=== PATIENT | female | born 1995 | race Caucasian/White ===

== ENCOUNTER → 2016-10-02 | Day surgery (SDC) | payer OTHER ==
[2016-09-21 09:50] VITALS: Ht 160 cm; Wt 72.7 kg
--- NOTE | 2016-09-30 11:31 | HISTORY & PHYSICAL EXAMINATION ---
DATE OF ADMISSION: 10/02/2016 HISTORY OF PRESENT ILLNESS: The patient is a 21-year-old white female 0 who has been experiencing severe dysmenorrhea and dyspareunia for over 6 months. She has used control pills with no relief. We have discussed using progestin only contraceptives including Depo-Provera and progestin containing IUD, but she declines these agents. She would like to proceed with diagnostic laparoscopy for definitive diagnosis. Ultrasound was done on 09/04/2016 which showed her uterus to be 34 mL with an endometrial lining of 2.1 mm. Ovaries appeared normal without evidence of any endometriomas. PAST MEDICAL HISTORY: ALLERGIES: THE PATIENT REPORTS AN ALLERGY TO AZITHROMYCIN. MEDICATIONS: She takes Zoloft 25 mg once daily and amitriptyline 75 mg nightly. She is also presently using Macey control pills 1 tablet daily. PAST SURGICAL HISTORY: None. ILLNESSES: The patient does suffer with anxiety. She has scoliosis. Also, experiences low back pain. She has been treated for acid reflux. History of a concussion. She also underwent CT scan which showed a possible umbilical hernia, although this was not confirmed by further testing. FAMILY HISTORY: Her father has hypertension. She also has a family history of depression and diabetes. PHYSICAL EXAMINATION: VITAL SIGNS: Height 5 foot 2-1/2 inches, weight 165 pounds, blood pressure 124/66. HEAD, EYES, EARS, NOSE, AND THROAT: Grossly within normal limits. NECK: Supple without masses. CHEST: Her lungs are clear without wheezing. HEART: Regular rate and rhythm. ABDOMEN: Soft and nontender with no obvious hernias or masses. PELVIC: External genitalia within normal limits. Vagina pink and stimulated. Cervix pink and closed with no lesions visible. Uterus within normal limits size, nontender. Adnexa were mildly tender bilaterally, no masses were palpable. Rectovaginal exam was negative. EXTREMITIES: No cyanosis, clubbing or edema. IMPRESSION: A 21-year-old with persistent dysmenorrhea and dyspareunia. PLAN: The patient is for diagnostic laparoscopy with possible operative laparoscopy to include placement of a scope into the abdomen with or without lysis of adhesions, laser ablation, fulguration or excision of endometrial implants. We have discussed the risks of bleeding, infection, injury to bowel, bladder or other internal organs with possible need for further treatment or surgery. All questions were answered. The patient wishes to proceed with the surgery as above. Note that we also discussed alternatives including no surgery and use of progestational agents. MTDD
[~2016-10-02] VITALS: Ht 160 cm; Wt 72.7 kg
[~2016-10-02] MED LIST: AMIT75TA2 PO; AMOX500C3 PO; AMT/50 PO; ATROPINE SULFATE 0.1 MG/ML 5ML SYR IV PRN; BCPILLS PO; BUPIVACAINE 0.5 % 5 MG/1 ML MPF 30ML VIAL ONE; DEXAMETHASONE SOD INJ 4 MG/ML VIAL ONE; EpHEDrine SULFATE INJ 50 MG/ML AMP IV PRN; FENTANYL CITRATE INJ 50 MCG/1 ML 2 ML VIAL ONE; FESO4TAB PO; GLYCOPYRROLATE INJ 0.2 MG/ML VIAL ONE; HYDROmorphone INJ 0.5 MG/0.5 ML SYR IV PRN; IBUPROFEN 600 MG TAB PO PRN; KETOROLAC TROMETHAMINE 30 MG/ML VIAL ONE; LACTATED RINGER'S 1000ML 1,000 ML IV SCH; LIDOCAINE HCL 2% 2 ML VIAL (20MG/ML) ONE; METHYLENE BLUE 0.5% 10 ML VIAL ONE; MIDAZOLAM HCL 1 MG/ML 2ML VIAL ONE; NEOSTIGMINE METHYLSULFATE 5 MG/5 ML SYR ONE; ONDANSETRON INJ 2 MG/ML 2 ML VIAL IV PRN; ONDANSETRON INJ 2 MG/ML 2 ML VIAL ONE; OXYC-57 PO; OXYCODONE/ACETAMINOPHEN 5-325 TAB PO PRN; PHENYLEPHRINE 100MCG/ML 5ML SYR IV PRN; PHENYLEPHRINE HCL INJ 10 MG/ML VIAL ONE; PROPOFOL IV EMULSION 10 MG/ML 20 ML VIAL IV ONE; ROCURONIUM BROMIDE 10 MG/ML 5 ML VIAL ONE; SERT25TA PO; SODIUM CHLORIDE 0.9% 1000ML 1,000 ML IV SCH
--- NOTE | 2016-10-02 09:41 | History & Physical Bridge - SC ---
H&P Re-Evaluation Bridge Note: I have examined the patient, reviewed the History & Physical and in the interval since the performance of the History & Physical I have noted the following changes of clinical significance: No changes noted
--- NOTE | 2016-10-02 11:15 | [facility] Post Operative Brief Note ---
Immediate Operative Summary Operative Date Oct 02, 2016. Pre-Operative Diagnosis Persistent dysmenorrhea and dyspareunia Post-Operative Diagnosis Same as preop, no evidence of endometriosis Procedure(s) Performed Diagnostic Laparoscopy Surgeon Dr. Lozano Fingerprint Expert Surgeon(s) None Estimated Blood Loss 25 mL Findings See dictated note. Specimens None Complication(s) None Disposition Recovery Room / PACU
--- NOTE | 2016-10-02 11:32 | Discharge Instructions-SurgCtr ---
Discharge Instructions Date of Service Oct 02, 2016. Visit Reason for Visit: Abdominal Pain, Dysmenorrhea Discharge Discharge Diagnosis / Problem: S/P Diagnostic laparoscopy Discharge Goals Goal(s): Diagnostic testing Activity Recommendations Activity Limitations: per Instructions/Follow-up section Anesthesia . Post Anesthesia Instructions: If you have had General Anesthesia or IV Sedation: * Do not drive today. * Resume driving when surgeon permits. * Do not make important decisions or sign legal documents today. * Call surgeon for: 1. Temperature elevations greater than 101 degrees F. 2. Uncontrollable pain. 3. Excessive bleeding. 4. Persistent nausea and vomiting. 5. Medication intolerance (nausea, vomiting or rash). * For nausea and vomiting use only clear liquids such as: tea, soda, bouillon until nausea subsides, then gradually increase diet as tolerated. * If you have any concerns or questions, call your surgeon's office. If physician is unavailable and it is an emergency, call 911 or go to the nearest emergency room. . Instructions / Follow-Up Instructions / Follow-Up ACTIVITY RECOMMENDATIONS: * Rest the first 2-3 days. You should be back to your normal activity levels by day 3. * No heavy lifting for 2 weeks. * No intercourse, tampons or douching for 2 weeks. * You may shower the next day. You can take off bandaids. Leave steri-strips in place for one week. If they fall off that is OK. * Do not drive anytime that you are taking narcotic pain medicines. RETURN TO SCHOOL/WORK: * May return to school or work after 3 days. DIET: Nausea may occur in the immediate post-operative period. If so, take clear liquids such as tea, bouillon, apple juice until all nausea has subsided, then resume usual diet. MEDICATIONS: Resume previous medications unless instructed otherwise by your surgeon. Take percocet one to two tablets every 4-6 hours if pain is severe. Otherwise you can use the following pain medication. Ibuprofen 200mg 2-3 tablets every 4-6 hours as needed -- OR -- Aleve 2 tablets every 8-12 hours as needed for post-operative discomfort Medications are over the counter. Tylenol may be used if above medications are contraindicated or not preferred. Medication should be taken with food or milk. Do not take on an empty stomach. SPECIAL CARE INSTRUCTIONS: * Check temperature twice daily for one week. report any elevation over 101 degrees. * You may experience some vagina spotting and/or bleeding. This is normal for 1 -2 weeks and should not be heavier than a normal period. If it is unusual in amount, call your physician. * Post-operative discomfort may consist of a sore throat, a "bloated" feeling and pain in the shoulders. these are normal symptoms, which usually only last for 2-3 days. * Remove band-aids tomorrow and shower. FOLLOW UP VISIT: Call your doctor's office for a post-operative 2-3 week visit if not already scheduled. [phone] an appointment with Dr Lozano Diet Recommendations Home Diet: resume previous diet Procedures Procedures Performed: Diagnostic Laparoscopy Pending Studies Studies pending at discharge: no Medical Emergencies . Who to Call and When: Medical Emergencies: If at any time you feel your situation is an emergency, please call 911 immediately. . Non-Emergent Contact Non-Emergency issues call your: Inseam Leveler Call Non-Emergent contact if: temperature is above 100.5, your pain is not controlled, your pain is worsening, wound has increased drainage, wound has increased redness, wound has increased pain . . "Provider Documentation" section prepared by Allison Lozano. [place] Drug Monitoring Program Search Results: patient reviewed within database, no issues identified
[2016-10-02] MEDS: HYDROmorphone INJ 0.5 MG/0.5 ML SYR IV PRN ×2 (11:47→11:59)
[2016-10-02 12:26] VITALS: TEMP 36.9
[2016-10-02 13:15] VITALS: BP 100/65; PULSE 103; O2SAT 96
--- NOTE | 2016-10-02 13:19 | Anesthesia Progress Nt - [facility] ---
Anesthesia Post Op Note Date & Time Oct 02, 2016 at 13:18 Vital Signs Vital Signs Past 12 Hours Date Time Temp Pulse Resp B/P Pulse Ox O2 Delivery O2 Flow Rate FiO2 10/02/16 13:15 103 18 100/65 96 Room Air 10/02/16 12:26 36.9 107 18 108/72 95 Room Air 10/02/16 12:15 118/65 10/02/16 12:12 84 20 10/02/16 12:12 82 20 93 10/02/16 12:10 126/71 10/02/16 12:10 37.2 78 20 118/65 98 Room Air 10/02/16 12:07 92 19 10/02/16 12:07 92 19 97 10/02/16 12:05 123/70 10/02/16 12:02 94 15 97 10/02/16 12:02 95 15 10/02/16 12:00 115/70 10/02/16 11:57 96 15 99 10/02/16 11:57 91 15 10/02/16 11:55 124/82 10/02/16 11:52 96 15 100 10/02/16 11:52 93 15 10/02/16 11:50 124/61 10/02/16 11:47 87 15 10/02/16 11:47 87 15 100 10/02/16 11:45 123/74 10/02/16 11:42 82 16 10/02/16 11:42 80 16 99 10/02/16 11:40 124/72 10/02/16 11:37 89 10/02/16 11:37 89 100 10/02/16 11:35 123/69 10/02/16 11:32 95 19 10/02/16 11:32 95 19 100 10/02/16 11:30 131/67 10/02/16 11:27 110 10/02/16 11:27 110 115/67 84 10/02/16 11:27 36.9 115 12 115/67 98 Mask 6 10/02/16 08:31 37.0 90 16 108/72 99 Room Air Notes Mental Status: alert / awake / arousable, participated in evaluation Pt Amnestic to Procedure: Yes Nausea / Vomiting: adequately controlled Pain: adequately controlled Airway Patency, RR, SpO2: stable & adequate BP & HR: stable & adequate Hydration State: stable & adequate Anesthetic Complications: no major complications apparent
--- NOTE | 2016-10-02 17:38 | OPERATIVE REPORT ---
DATE OF OPERATION: 10/02/2016 PREOPERATIVE DIAGNOSES: Persistent dysmenorrhea and dyspareunia. POSTOPERATIVE DIAGNOSES: Same. No evidence of endometriosis. PROCEDURE PERFORMED: Diagnostic laparoscopy. SURGEON: Allison Lozano MD ANESTHESIA: General. TRAFFIC ENGINEERING TECHNICIAN: Curtis Guillermo MD DESCRIPTION OF PROCEDURE: The patient was taken to the operating room where general anesthesia was administered. After an adequate level was obtained, she was placed in dorsal lithotomy position. Abdomen, vulva, vagina, and cervix were prepped with Betadine solution. The patient was draped. Leigh catheter was inserted into the patient's bladder. This was left in place during the procedure to keep the bladder drained. Hulka clamp was inserted into her uterus. An incision was then made at the lower edge of the umbilicus using the scalpel. Two attempts were made to insert the Veress needle, but no flow of gas was obtained either time. At that point, I made the decision to open the abdominal wall directly. A scalpel was used to make a small incision in the fascia. The peritoneum was then opened directly using scalpel. At this point, it was possible to directly insert the laparoscopic sheath with trocar. Trocar was removed and hysteroscope inserted. Gas was kept from escaping by tightly sealing the skin around the sheath with Allis clamps. Prior to this, 2 sutures of 0 Vicryl were placed on the fascia. A second incision was made suprapubically using the scalpel. A 5 mm trocar and sheath were inserted under direct visualization. The patient's peritoneum was exceedingly stretchy so finally the operative scissors were used to poke through the peritoneum to create an opening for the sheath. Thick probe was then used. Pelvic organs were visualized. Photographs were taken. The uterus, tubes, and ovaries appeared normal without evidence of endometriosis or adhesions. The anterior and posterior cul-de-sac also appeared clear of any endometriosis. The appendix was easily visualized and again there was no evidence of adhesion or endometriosis. The insertions of the round ligaments had no evidence of any potential hernia. It should be noted that the patient had previously had an MRI in [place] which showed possible umbilical hernia. Ultrasound at our facility did not confirm this. On palpation of the umbilical area at the time of making the umbilical incision, there was a small defect noted at the central umbilicus. This seemed to be less than 1 cm in size. I did not address that or correct that in the course of the procedure, however. There was a small amount of bleeding created when making the incisions. The pelvis was irrigated with 60 mL of saline and then this was aspirated to better see the cul-de-sac. At this point, the procedure was ended. Gas was allowed to escape from the abdomen and the incisions were closed. The umbilical incision was closed with 2 sutures of 0 Vicryl in the fascia and 2 sutures of 3-0 Vicryl to close the skin. A suture of 3-0 Vicryl was used to close the skin at the suprapubic incision. Estimated blood loss for the procedure was no more than 25 mL. The patient tolerated the procedure well and was taken to the recovery room in good condition. An additional note is that on bimanual exam prior to the procedure, there was stool noted in the rectum. I attest to the content of the Intraoperative Record and any orders documented therein. Any exceptions are noted below. CARLOS
== END | disposition home or self-care (01) ==
LOC: X.SURG 08:24
PROVIDERS: ATTEND Obstetrics & Gynecology
DX: N94.6 Dysmenorrhea, unspecified (principal); N94.10 Unspecified dyspareunia; F41.9 Anxiety disorder, unspecified; Z83.3 Family history of diabetes mellitus

== ENCOUNTER 2016-11-12 23:44 | Emergency (ER) | payer OTHER ==
[~2016-11-12] VITALS: Ht 161.3 cm; Wt 75.8 kg
[~2016-11-12 23:44] MED LIST changes: -AMIT75TA2 PO; -ATROPINE SULFATE 0.1 MG/ML 5ML SYR IV PRN; -BUPIVACAINE 0.5 % 5 MG/1 ML MPF 30ML VIAL ONE; -DEXAMETHASONE SOD INJ 4 MG/ML VIAL ONE; -EpHEDrine SULFATE INJ 50 MG/ML AMP IV PRN; -FENTANYL CITRATE INJ 50 MCG/1 ML 2 ML VIAL ONE; -FESO4TAB PO; -GLYCOPYRROLATE INJ 0.2 MG/ML VIAL ONE; -HYDROmorphone INJ 0.5 MG/0.5 ML SYR IV PRN; -IBUPROFEN 600 MG TAB PO PRN; -KETOROLAC TROMETHAMINE 30 MG/ML VIAL ONE; -LACTATED RINGER'S 1000ML 1,000 ML IV SCH; -LIDOCAINE HCL 2% 2 ML VIAL (20MG/ML) ONE; -METHYLENE BLUE 0.5% 10 ML VIAL ONE; -MIDAZOLAM HCL 1 MG/ML 2ML VIAL ONE; -NEOSTIGMINE METHYLSULFATE 5 MG/5 ML SYR ONE; -ONDANSETRON INJ 2 MG/ML 2 ML VIAL IV PRN; -ONDANSETRON INJ 2 MG/ML 2 ML VIAL ONE; -OXYCODONE/ACETAMINOPHEN 5-325 TAB PO PRN; -PHENYLEPHRINE 100MCG/ML 5ML SYR IV PRN; -PHENYLEPHRINE HCL INJ 10 MG/ML VIAL ONE; -PROPOFOL IV EMULSION 10 MG/ML 20 ML VIAL IV ONE; -ROCURONIUM BROMIDE 10 MG/ML 5 ML VIAL ONE; -SODIUM CHLORIDE 0.9% 1000ML 1,000 ML IV SCH
[2016-11-12 23:47] VITALS: Ht 161.3 cm; Wt 75.8 kg
[2016-11-13] MEDS ORDERED: IBUPROFEN 600 MG TAB PO STA (00:02)
[2016-11-13] MEDS ORDERED: HYDROCODONE/ACETAMOPHEN 5/325MG TAB PO ONE (00:15)
[2016-11-13 00:22] LABS: URINE APPEARANCE CLEAR (CLEAR); URINE BILIRUBIN NEG (NEG); URINE COLOR YELLOW; URINE NITRITE NEG (NEG); URINE PH 7.5 (4.5-7.5); URINE SPECIFIC GRAVITY 1.013 (1.000-1.030); UROBILINOGEN NEG (NEG); ZZUR CULT IF INDIC CLEAN CATCH NO
[2016-11-13 00:23] LABS: MANUAL MICROSCOPIC REQUIRED? NO; REVIEW REQ? NO
[2016-11-13] MEDS ORDERED: AMIT75TA2 PO (00:35)
[2016-11-13] MEDS ORDERED: FESO4TAB PO (00:37)
[2016-11-13 00:53] VITALS: BP 101/54; PULSE 120; TEMP 37.5; O2SAT 97
[2016-11-13] MEDS ORDERED: NORCO 5/325MG HOME PACK PO ONE (01:00)
--- NOTE | 2016-11-13 03:40 | EMERGENCY ROOM VISIT NOTE ---
History First contact with patient: 23:52 Chief Complaint: ILLNESS Stated Complaint: LWR RT BACK PAIN STARTED IN STOMACH History of Present Illness The patient is a 21 year old female who presents to the Emergency Room with complaints of low back pain for the past few hours. The patient was seen at a local urgent care clinic earlier today and diagnosed with strep pharyngitis on rapid strep. She was started on amoxicillin and has taken one dose of the medication. She has not taken anything for her fever. She is not having chest pain, chest tightness, shortness of breath, or abdominal pain. She considers himself usually healthy without other issues. She rates her discomfort a 5/10. Review of Systems More than 10 systems were reviewed and otherwise negative with the exception of history of present illness. Past Medical/Surgical History Medical Problems: (1) Asthma Family History No pertinent family history Social History Smoking Status: Never Smoker Alcohol Use: none Drug Use: none Marital Status: single Housing Status: lives with family Occupation Status: student Current/Historical Medications Scheduled Amitriptyline Hcl (Elavil), 75 MG PO HS Amoxicillin (Amoxil), 500 MG PO BID Control Pills ( Control Pills), 1 TAB PO QAM Fesoterodine Fumarate (Toviaz), 4 MG PO DAILY Sertraline (Zoloft), 25 MG PO QAM Allergies Coded Allergies: Egg (Verified Allergy, Mild, NAUSEA, 11/13/16) Azithromycin (Verified Adverse Reaction, Mild, diarrhea, 11/13/16) Diphenhydramine (Verified Adverse Reaction, Mild, HYPERACTIVE, 11/13/16) Physical Exam Vital Signs Date Time Temp Pulse Resp B/P Pulse Ox O2 Delivery O2 Flow Rate FiO2 11/13/16 00:53 37.5 120 18 101/54 97 Room Air 11/12/16 23:47 38.0 126 18 117/75 98 Room Air Pain Rating (0-10): 6.0 Physical Exam VITALS: Vitals are noted on the nurse's note and reviewed by myself. Vital signs stable. GENERAL: Well-developed, well-nourished, white female, who is in no acute distress and resting comfortably. Patient is cooperative with the examination. HEAD: Normocephalic atraumatic. EARS: External ear normal. External auditory canals clear, tympanic membranes pearly dorsey without erythema or effusion bilaterally. EYES: Pupils equal round and reactive to light and accommodation. Conjunctivae without injection, sclerae without icterus. Extraocular movements intact. NOSE: Patent, turbinates without inflammation or discharge. MOUTH: Mucous membranes moist. Tonsils are 2+ enlarged with exudates. Pharynx without erythema, blood, or exudate. Uvula midline. Airway patent. NECK: Supple without nuchal rigidity. No lymphadenopathy. No thyromegaly. Cervical spine is nontender. HEART: Regular rate and rhythm without murmurs gallops or rubs. LUNGS: Clear to auscultation bilaterally without wheezes, rales or rhonchi. No retractions or accessory muscle use. ABDOMEN: Positive normal bowel sounds x 4. Soft, nontender, without masses or organomegaly. No guarding or rebound tenderness. No CVA tenderness. MUSCULOSKELETAL: No muscle atrophy, erythema, or edema noted. No spinous process tenderness. No low back tenderness on palpation. Negative straight raise bilateral. NEURO: Patient was alert and oriented to person place and time. CN II through XII grossly intact. Medical Decision & Procedures Laboratory Results Test 11/13/16 00:02 Urine Color YELLOW Urine Appearance CLEAR (CLEAR) Urine pH 7.5 (4.5-7.5) Urine Specific [place] 1.013 (1.000-1.030) Urine Protein NEG (NEG) Urine Glucose (UA) NEG (NEG) Urine Ketones NEG (NEG) Urine Occult Blood TRACE (NEG) Urine Nitrite NEG (NEG) Urine Bilirubin NEG (NEG) Urine Urobilinogen NEG (NEG) Urine Leukocyte Esterase TRACE (NEG) Urine WBC (Auto) 1-5 /hpf (0-5) Urine RBC (Auto) 5-10 /hpf (0-4) Urine Hyaline Casts (Auto) 0 /lpf (0-5) Urine Epithelial Cells (Auto) 10-20 /lpf (0-5) Urine Bacteria (Auto) NEG (NEG) Urine Test NEG (NEG) Medications Administered Medications (Trade) Dose Ordered Sig/Rosie Route Start Time Stop Time Status Last Admin Dose Admin Acetaminophen/ Hydrocodone Bitart ([place] 5/325 Tab) 1 tab NOW ONCE PO 11/13/16 00:15 11/13/16 00:16 DC 11/13/16 00:11 1 TAB Ibuprofen (Motrin Tab) 600 mg NOW STAT PO 11/13/16 00:02 11/13/16 00:03 DC 11/13/16 00:10 600 MG Acetaminophen/ Hydrocodone Bitart ([place] 5/325mg Home Pack) 1 homepack UD ONCE PO 11/13/16 01:00 11/13/16 01:01 DC 11/13/16 00:58 1 HOMEPACK ED Course Physical exam and history were performed. Nursing notes and EMR were reviewed. Patient appears to have a diagnosis of positive strep pharyngitis on outpatient testing. She has taken one dose of antibiotics, and has a fever here in the department. She is complaining of vague back pain, but she is not with reproducible tenderness on palpation. I did elect to provide her Vicodin and ibuprofen here in the department. Urine was collected and is without obvious signs of infection or other significant findings. Overall I suspect the patient 's discomfort is from her fever secondary to her strep pharyngitis. She did feel much better after analgesics and is felt to be stable for discharge home. The patient will be given a home pack of Vicodin and instructions to continue ibuprofen and Tylenol. She is to follow with his PCP this week and was otherwise invited back to the ER with any new, worsening, or concerning symptoms. The chart was completed utilizing [employer] Voice Recognition Software. Grammatical errors, random word insertions, pronoun errors, and incomplete sentences are an occasional consequence of this system due to software limitations, ambient noise, and hardware issues. Any formal questions or concerns about the content, text, or information contained within the body of this dictation should be directly addressed to the provider for clarification. . Medical Decision Differential diagnosis: Etiologies such as viral syndrome, tonsillitis, streptococcal pharyngitis, mononucleosis, peritonsillar abscess, retropharyngeal abscess, otitis, pneumonia , influenza, as well as others were entertained. Impression Primary Impression: Strep pharyngitis Additional Impression: Fever Departure Information Dispostion Home / Self-Care Condition GOOD Forms HOME CARE DOCUMENTATION FORM, IMPORTANT VISIT INFORMATION Patient Instructions My [facility] Additional Instructions You were seen and evaluated today on an emergency basis only. This is not a substitute for, or an effort to provide, complete comprehensive medical care. It is not possible to recognize and treat all injuries or illnesses in a single emergency department visit. For this reason it is recommended that you followup with your primary care physician this week for any ongoing or persistent symptoms. For baseline pain relief you may alternate ibuprofen and acetaminophen every 4 hours for pain control. Take 600 mg ibuprofen (Advil) and then 4 hours later take 1000 mg acetaminophen (Tylenol). Do not take more than 3000 mg acetaminophen in a single day. [place] (hydrocodone/acetaminophen) 5/325 mg (homepack) every 6 hours as needed for worsening breakthrough pain. Do not drink or drive on [place]. This medication will likely make you tired. Do not take [place] and Tylenol at the same time as both contain acetaminophen. [place] may cause constipation. You may wish to take an [id number] stool softener like Colace if this occurs. You are welcome to return to the emergency department anytime with new, worsening, or concerning symptoms. Problem Qualifiers
== END 2016-11-13 01:00 | disposition home or self-care (01) ==
LOC: C.EDB 23:45 → C.EDA 11-13 01:00
DX: J02.0 Streptococcal pharyngitis (principal); R50.9 Fever, unspecified; J45.909 Unspecified asthma, uncomplicated

== ENCOUNTER → 2017-02-27 | Outpatient (CLI) | payer OTHER ==
[~2017-02-27] MED LIST changes: +AMIT75TA2 PO; -AMT/50 PO; +FESO4TAB PO; -OXYC-57 PO
--- NOTE | 2017-02-27 16:47 | DIAGNOSTIC IMAGING REPORT ---
RIGHT FOOT MIN 3 VIEWS ROUTINE HISTORY: 21 years-old Female R FOOT PAIN Right acute right-sided foot pain without reported injury. COMPARISON: None available TECHNIQUE: 3 views of the right foot FINDINGS: There is asymmetric medial cortical thickening involving the majority of the second metatarsal. There is mild dorsal forefoot soft tissue swelling. There is no acute fracture or dislocation identified. No significant degenerative changes or opaque foreign body. IMPRESSION: 1. No acute fracture or dislocation. 2. Mild dorsal forefoot soft tissue swelling is noted in addition to asymmetric medial cortical thickening involving the majority of the second metatarsal, suggesting stress response. Correlate with point tenderness and patient history. The above report was generated using voice recognition software. It may contain grammatical, syntax or spelling errors. Electronically signed by: Juan Ramon Silverman M.D. 02/27/2017 4:46 PM Dictated Date/Time: 02/27/2017 4:43 PM
== END | disposition home or self-care (01) ==
LOC: C.RAD 16:23
PROVIDERS: ATTEND Physician Assistant Surgical
DX: M79.671 Pain in right foot (principal)

== ENCOUNTER → 2017-04-04 | Outpatient (CLI) | payer OTHER ==
[2017-04-04 13:03] LABS: BASO % 0.4 %; BASO ABS # 0.04 K/uL (0-0.2); COMPLETE YES; HEMATOCRIT 37.3 % (37-47); IG% 0.4 %; LYMPH % 29.2 %; LYMPH ABS # 2.98 K/uL (1.2-3.4); MEAN CELL VOLUME 85.2 fL (80-100); MEAN CORPUSCULAR HEMOGLOBIN 28.3 pg (25-34); MEAN CORPUSCULAR HGB CONC 33.2 g/dl (32-36); MONO % 7.4 %; NEUT % 61.6 %; PLATELET COUNT 321 K/uL (130-400); RED BLOOD COUNT 4.38 M/uL (4.2-5.4); WHITE BLOOD COUNT 10.21 K/uL (4.8-10.8)
[2017-04-04 13:29] LABS: ALT/SGPT 15 U/L (12-78); BLOOD UREA NITROGEN 10 mg/dl (7-18); BUN/CREATININE RATIO 12.5 (10-20); CALCIUM 8.8 mg/dl (8.5-10.1); CARBON DIOXIDE 25 mmol/L (21-32); CHLORIDE 106 mmol/L (98-107); CREATININE 0.81 mg/dl (0.60-1.20); GLUCOSE 83 mg/dl (70-99); SODIUM 138 mmol/L (136-145)
[2017-04-04 13:32] LABS: ALB/GLOB RATIO 0.8 (0.9-2); ALKALINE PHOSPHATASE 61 U/L (45-117); AST/SGOT 15 U/L (15-37)
--- NOTE | 2017-04-04 14:50 | DIAGNOSTIC IMAGING REPORT ---
ABD/PELVIS IV AND ORAL CONT CLINICAL HISTORY: 21 years-old Female presenting with R10.12 Abdominal pain, LUQ (left upper quadrant)CONCERN FOR COLI. TECHNIQUE: Multidetector CT of the abdomen and pelvis was performed after the administration of oral and intravenous contrast. IV contrast: 120 mL of Optiray 320. A dose lowering technique was used consistent with the principles of ALARA (as low as reasonably achievable). COMPARISON: 05/10/2016. CT DOSE (mGy.cm): The estimated cumulative dose is 345.12 mGy.cm. FINDINGS: Production Mechanic topogram: Unremarkable. Lung bases: Lung bases clear. Normal heart size. No pericardial or pleural effusion. Liver: Normal morphology. No liver lesion. Patent hepatic vasculature. Biliary: No intrahepatic or extrahepatic biliary ductal dilatation. Normal gallbladder. Pancreas: Normal. Spleen: Normal. Adrenal glands: Normal. Kidneys and ureters: Normal. No hydronephrosis. Bladder: Incompletely evaluated secondary to underdistention. Pelvic organs: Uterus and ovaries normal. Bowel: Moderate stool burden in the rectum. No apparent large bowel wall thickening. Normal appendix. Peritoneal cavity: No free fluid or intraperitoneal gas. Lymph nodes: No enlarged lymph nodes in the abdomen or pelvis. Vasculature: Aorta and IVC patent and normal in caliber. Abdominal wall: Normal. Musculoskeletal: Normal. IMPRESSION: 1. No acute intra-abdominal pathology. Electronically signed by: Lazarus Mejia M.D. 04/04/2017 2:49 PM Dictated Date/Time: 04/04/2017 2:41 PM
== END | disposition home or self-care (01) ==
LOC: C.CTS 11:47
PROVIDERS: ATTEND Physician Assistant Medical
DX: R10.12 Left upper quadrant pain (principal)

== ENCOUNTER 2017-06-03 13:05 | Emergency (ER) | payer OTHER ==
[~2017-06-03] VITALS: Ht 160 cm; Wt 77.5 kg
[2017-06-03 13:08] VITALS: TEMP 37.1; Ht 160 cm; Wt 77.5 kg
[2017-06-03] MEDS ORDERED: ALBUT/IPRATROP 3MG/0.5MG NEB 3 ML VIAL INH STA (13:52)
--- NOTE | 2017-06-03 13:56 | EMERGENCY ROOM VISIT NOTE ---
History First contact with patient: 13:32 Chief Complaint: RESPIRATORY PROBLEMS Stated Complaint: TROUBLE BREATHING, COUGHING, DIZZY, FATIGUE History of Present Illness The patient is a 21 year old female who presents to the Emergency Room with complaints of chronic cough for the last 4 weeks. It has been nonproductive. She denies any fever or chills. She has also had a runny nose. She is now feeling short of breath. The patient was seen at an urgent care. She was diagnosed with sinusitis. She was prescribed Augmentin. She is on day 9. Her symptoms have not improved. She denies any history of asthma. She denies any sore throat. She has had mild bilateral ear pain. Review of Systems 10 system review performed and negative unless noted in HPI or below Past Medical/Surgical History Medical Problems: (1) Asthma Social History Smoking Status: Never Smoker Alcohol Use: none Drug Use: none Marital Status: single Housing Status: lives with family Occupation Status: student Current/Historical Medications Scheduled Albuterol Hfa (Ventolin Hfa), 2 PUFFS INH QID Control Pills ( Control Pills), 1 TAB PO QAM Prednisone (Prednisone), 50 MG PO DAILY Quetiapine Fumarate (Seroquel), 100 MG PO HS Venlafaxine Hcl (Effexor), 25 MG PO DAILY Venlafaxine Hcl (Effexor), 100 MG PO DAILY Physical Exam Vital Signs Date Time Temp Pulse Resp B/P (MAP) Pulse Ox O2 Delivery O2 Flow Rate FiO2 06/03/17 15:00 72 18 127/68 95 Room Air 98 06/03/17 14:19 Room Air 98 06/03/17 13:08 37.1 78 18 107/67 95 Room Air Physical Exam VITALS: Vitals are noted on the nurse's note and reviewed by myself. Vital signs stable. GENERAL: 21-year-old female, in no acute distress, nondiaphoretic, well- developed well-nourished. SKIN: The skin was without rashes, erythema, edema, or bruising. HEAD: Normocephalic atraumatic. EARS: External auditory canals clear, tympanic membranes pearly dorsey without erythema or effusion bilaterally. EYES: Conjunctivae without injection, sclerae without icterus. Extraocular movements intact. NOSE: Patent, turbinates without inflammation or discharge. No sinus tenderness. MOUTH: Mucous membranes moist. Tonsils are not enlarged. Pharynx without erythema or exudate. Uvula midline. Airway patent. Tongue does not deviate. NECK: Supple without nuchal rigidity. No lymphadenopathy. Cervical spine is nontender. No JVD. HEART: Regular rate and rhythm without murmurs gallops or rubs. LUNGS: Clear to auscultation bilaterally without wheezes, rales or rhonchi. No accessory muscle use. MUSCULOSKELETAL: No muscle atrophy, erythema, or edema noted. Strength 5/5 throughout. NEURO: Patient was alert and oriented to person place and time. Normal sensation to touch. No focal neurological deficits. Medical Decision & Procedures ER Provider Diagnostic Interpretation: Chest x-ray IMPRESSION: No acute process. The above report was generated using voice recognition software. It may contain grammatical, syntax or spelling errors. Electronically signed by: Juan Ramon Silverman M.D. 06/03/2017 2:46 PM Dictated Date/Time: 06/03/2017 2:45 PM The status of this report is Signed. Draft = Not yet reviewed or approved by Radiologist. Signed = Reviewed and approved by Radiologist. <AttendingPhy></AttendingPhy> <FamilyPhy>Juan Quintana M.D.</FamilyPhy> < PrimaryPhy>Juan Quintana M.D.</PrimaryPhy> <UnitNumber>[id number]</UnitNumber > <VisitNumber>[id number]</VisitNumber> Laboratory Results Test 06/03/17 14:25 Influenza Type A (RT-PCR) Neg for Influ A (NEG) Influenza Type B (RT-PCR) Neg for Influ B (NEG) Medications Administered Medications (Trade) Dose Ordered Sig/Rosie Route Start Time Stop Time Status Last Admin Dose Admin Albuterol/ Ipratropium (Duoneb) 3 ml ONE STAT INH 06/03/17 13:52 06/03/17 13:54 DC 06/03/17 14:15 3 ML Prednisone (PredniSONE TAB) 60 mg NOW STAT PO 06/03/17 13:52 06/03/17 13:54 DC 06/03/17 14:15 60 MG ED Course The patient was seen and examined She was given a DuoNeb treatment She was given 1 dose of prednisone 60 mg Imaging was performed Upon reevaluation, the patient said that the breathing treatment had helped. She was feeling better. We discussed the results of her workup. She voiced understanding. Discharge instructions were reviewed, and she was discharged in good condition Medical Decision Differential diagnosis: Bronchitis, pneumonia, influenza, other viral syndrome This patient is a 21-year-old female that presents emergency department with a chronic nonproductive cough for approximately 1 month. 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 On exam, she is nontoxic in appearance. Her breath sounds were clear. She is not hypoxic. Her chest x-ray was negative for pneumonia. Influenza was also negative. She likely has chronic bronchitis. The patient was given a prescription for an inhaler. She was also given a course of steroids. The patient and the patient's mother seemed comfortable with this plan. I advised her to follow-up with her primary care physician this week for recheck. She agrees to return to the emergency department with any new, worsening or concerning symptoms. This chart was completed in part utilizing [employer] Speech Voice Recognition software. Attempts were made to minimize the grammatical errors, random word insertions, pronoun errors and incomplete sentences. Any formal questions or concerns about the content, text or information contained within the body of this dictation should be directly addressed to the provider for clarification. Medication Reconcilliation Current Medication List: was personally reviewed by me Impression Primary Impression: Chronic bronchitis Departure Information Dispostion Home / Self-Care Condition GOOD Prescriptions Prednisone (Prednisone) 50 Mg Tab 50 MG PO DAILY for 4 Days, #4 TAB Prov: Joan Kumari PA-C 06/03/17 Albuterol Hfa (VENTOLIN HFA) 200 Puffs/50335 Mcg Aers 2 PUFFS INH QID, #1 INHALER Prov: Joan Kumari PA-C 06/03/17 Referrals Juan Quintaan M.D. (PCP) Patient Instructions My [facility] Additional Instructions You were evaluated in the emergency department today for a cough. This is likely due to a viral bronchitis. Please continue current medications as prescribed Please take the entire course of steroids Use the albuterol inhaler 2 puffs every 4-6 hours as needed for difficulty breathing Please follow-up with her primary care physician this week to be rechecked Return to the emergency department with any new, worsening or concerning symptoms
[2017-06-03] MEDS ORDERED: QUET1TAB34 PO (14:08)
[2017-06-03] MEDS ORDERED: VENL25TA2 PO (14:08)
[2017-06-03] MEDS ORDERED: VENL100T2 PO (14:08)
--- NOTE | 2017-06-03 14:47 | DIAGNOSTIC IMAGING REPORT ---
CHEST 2 VIEWS ROUTINE HISTORY: 21 years-old Female chronic cough chronic cough COMPARISON: Chest radiographs 01/07/2016 TECHNIQUE: PA and lateral views of the chest FINDINGS: Cardiomediastinal and hilar silhouettes are within normal limits. No pneumothorax, pleural effusion, focal airspace consolidation or overt pulmonary edema. Bones of the chest are grossly intact. IMPRESSION: No acute process. The above report was generated using voice recognition software. It may contain grammatical, syntax or spelling errors. Electronically signed by: Juan Ramon Silverman M.D. 06/03/2017 2:46 PM Dictated Date/Time: 06/03/2017 2:45 PM
[2017-06-03 15:00] VITALS: BP 127/68; PULSE 72; O2SAT 95
[2017-06-03 15:20] LABS: INFLUENZA A PCR Neg for Influ A (NEG); INFLUENZA B PCR Neg for Influ B (NEG)
[2017-06-03] MEDS ORDERED: PRED50TA PO (15:31)
[2017-06-03] MEDS ORDERED: VNTHFA/IN INH (15:31)
== END 2017-06-03 15:43 | disposition home or self-care (01) ==
LOC: C.EDB 13:08
DX: J42 Unspecified chronic bronchitis (principal); J45.909 Unspecified asthma, uncomplicated

== ENCOUNTER 2017-06-24 14:20 | Emergency (ER) | payer OTHER ==
[~2017-06-24] VITALS: Ht 160 cm; Wt 76.3 kg
[~2017-06-24 14:20] MED LIST changes: -AMIT75TA2 PO; -AMOX500C3 PO; -BCPILLS PO; -FESO4TAB PO; -SERT25TA PO; +VNTHFA/IN INH
[2017-06-24 14:27] VITALS: Ht 160 cm; Wt 76.3 kg
[2017-06-24] MEDS ORDERED: IBUPROFEN 800 MG TAB PO STA (14:52)
--- NOTE | 2017-06-24 14:57 | EMERGENCY ROOM VISIT NOTE ---
History First contact with patient: 14:40 Chief Complaint: SORETHROAT Stated Complaint: SORE THROAT,CHEST PAIN,CONGESTION,FEVER,NAUSEA History of Present Illness The patient is a 21 year old female who presents to the Emergency Room with complaints of sore throat. The patient reports that she has had a sore throat for the past one week. Associated with this, she has had nasal congestion, fatigue, fevers and decreased appetite. She states that she feels she becomes out of breath easily. She was seen at urgent care at the onset of symptoms and had a negative strep swab. She does report some occasional joint pains. She states that when her symptoms began, there were white spots on her tonsils. She rates her overall discomfort a 7/10. He has not been taking any medications at home for her symptoms. She denies chest pain, cough, abdominal pain, nausea/vomiting or changes in bowel movements. Review of Systems A complete 10 point review of systems was reviewed with the patient with pertinent positives and negatives as per history of present illness. All else were negative. Past Medical/Surgical History Medical Problems: (1) Asthma Social History Smoking Status: Never Smoker Alcohol Use: none Drug Use: none Marital Status: single Housing Status: lives with family Occupation Status: student Current/Historical Medications Scheduled Albuterol Hfa (Ventolin Hfa), 2 PUFFS INH QID Control Pills ( Control Pills), 1 TAB PO QAM Quetiapine Fumarate (Seroquel), 100 MG PO HS Venlafaxine Hcl (Effexor), 25 MG PO DAILY Venlafaxine Hcl (Effexor), 100 MG PO DAILY Physical Exam Vital Signs Date Time Temp Pulse Resp B/P (MAP) Pulse Ox O2 Delivery O2 Flow Rate FiO2 06/24/17 16:28 37.5 119 18 125/69 99 06/24/17 15:47 119 18 125/69 99 06/24/17 15:47 119 18 125/69 100 06/24/17 14:31 97 Room Air 06/24/17 14:27 37.5 128 18 126/81 97 Room Air Physical Exam VITALS: Vitals are noted on the nurse's note and reviewed by myself. Vital signs stable. GENERAL: This is a 21-year-old female, in no acute distress, nondiaphoretic, well-developed well-nourished. SKIN: The skin was without rashes. EARS: External auditory canals clear, tympanic membranes pearly dorsey without erythema or effusion bilaterally. EYES: Pupils equal round and reactive to light and accommodation. NOSE: Patent, turbinates without inflammation or discharge. MOUTH: Mucous membranes moist. Tonsils enlarged and mildly erythematous bilaterally without exudate. NECK: Supple without nuchal rigidity. No lymphadenopathy. HEART: Regular rate and rhythm without murmurs gallops or rubs. LUNGS: Clear to auscultation bilaterally without wheezes, rales or rhonchi. ABDOMEN: Positive bowel sounds x 4. Soft, nontender to palpation. NEURO: Patient was alert and oriented to person place and time. Medical Decision & Procedures Laboratory Results Test 06/24/17 14:50 Influenza Type A Antigen Neg for Influ A (NEG) Influenza Type B Antigen Neg for Influ B (NEG) Medications Administered Medications (Trade) Dose Ordered Sig/Rosie Route Start Time Stop Time Status Last Admin Dose Admin Ibuprofen (Motrin Tab) 800 mg NOW STAT PO 06/24/17 14:52 06/24/17 14:54 DC 06/24/17 14:52 800 MG Medical Decision Differential diagnosis includes strep pharyngitis, viral pharyngitis, , among others. The patient is a 21-year-old female who presents today complaining of persistent sore throat. Exam is unremarkable. The patient is well appearing. She has no pulmonary symptoms but has been feeling fatigued. Rapid strep negative, flu negative. I feel this is likely resolving strep or viral pharyngitis. Patient was given Motrin for pain. She is tachycardic and I favor this is likely due to dehydration, as patient admits she has not had much to eat or drink lately. Patient is able to orally hydrate and was encouraged to do so. She was advised to return here if new or worsening symptoms, otherwise will follow up with her PCP. She verbalized understanding and was discharged home in good condition. Medication Reconcilliation Current Medication List: was personally reviewed by me Blood Pressure Screening Patient's blood pressure: Normal blood pressure Impression Primary Impression: Viral pharyngitis Departure Information Dispostion Home / Self-Care Condition GOOD Referrals Juan Quintana M.D. (PCP) Patient Instructions My [facility] Additional Instructions You were seen in the emergency department for your sore throat. The results of your rapid strep screen were found to be negative. For pain and fever control, you can use the following [id number]-[id number] medicines (if >12 yo): - Regular strength (325mg/tab) Tylenol (acetaminophen) 2 tabs every 4-6 hours as needed. Do not exceed 12 tablets in a 24 hour period. Avoid taking more than 4 grams (4000 mg) of Tylenol per day. This includes any other sources of acetaminophen you may take on a regular basis. - Regular strength (200 mg/tab) Advil (ibuprofen) 1-2 tabs every 4-6 hours as needed. Do not exceed a dose of 3200 mg per day. - For best results, alternate dosing of Tylenol and Advil. In addition to your prescribed medications, you can also use the following home remedies: - Warm salt-water gargles 3 times per day can soothe your throat and help to fight infection. - Warm tea with honey can soothe your throat. Return to the emergency department if your symptoms persist or worsen over the next 2-3 days despite treatment course outlined above. Return to the emergency department if you develop the following symptoms of: inability to swallow solids , liquids, or drool; excessive wheezing or inability to catch your breath; or intractable fever or pain. Follow up with your primary care provider in 2-3 days from today's emergency department visit.
[2017-06-24 15:33] LABS: INFLUENZA B ANTIGEN Neg for Influ B (NEG)
[2017-06-24 16:28] VITALS: BP 125/69; PULSE 119; TEMP 37.5; O2SAT 99
[2017-11-01] MEDS ORDERED: CLON1TAB10 PO (18:01)
[2018-01-03] MEDS ORDERED: TOPI25TA99 PO (14:10)
[2018-01-03] MEDS ORDERED: CHOL1CAP57 PO (14:10)
[2018-01-03] MEDS ORDERED: RIZA10TA18 PO (14:10)
== END 2017-06-24 16:00 | disposition home or self-care (01) ==
LOC: C.EDB 14:21
DX: J02.9 Acute pharyngitis, unspecified (principal); J45.909 Unspecified asthma, uncomplicated

== ENCOUNTER 2017-08-06 18:43 | Emergency (ER) | payer OTHER ==
[~2017-08-06] VITALS: Ht 160 cm; Wt 78.6 kg
[~2017-08-06 18:43] MED LIST changes: +BCPILLS PO; +QUET1TAB34 PO; +VENL100T2 PO; +VENL25TA2 PO
[2017-08-06 19:06] VITALS: Ht 160 cm; Wt 78.6 kg
[2017-08-06] MEDS ORDERED: KETOROLAC TROMETHAMINE 60 MG/2 ML VIAL IM STA (19:38)
[2017-08-06] MEDS ORDERED: DIAZEPAM INJ 5 MG/ML 2 ML CARP IM STA (19:38)
--- NOTE | 2017-08-06 21:30 | DIAGNOSTIC IMAGING REPORT ---
LUMBAR SPINE W/O CONTRAST CLINICAL HISTORY: 21 years-old Female with incont, RLE weak/numb, eval cauda equina. Acute right lower extremity weakness and numbness COMPARISON: CT abdomen and pelvis 04/04/2017 TECHNIQUE: Multiplanar, multi sequence MRI of the lumbar spine was performed without intravenous contrast. FINDINGS: The large [id number]-pypt tool liaison localizer images demonstrate an anteflexed uterus. No gross abnormality identified within the abdomen, pelvis or paraspinal structures. No aortic aneurysm or adenopathy identified. No acute fracture, focal bone marrow edema or subluxation. Conus medullaris terminates at the T12-L1 level. Signal within the imaged thoracic spinal cord is within normal limits. The cauda equina appear to be unremarkable. T12-L1: No central canal or neural foraminal stenosis. L1-L2: No central canal or neural foraminal stenosis. L2-L3: No central canal or neural foraminal stenosis. L3-L4: No central canal or neural foraminal stenosis. L4-L5: No central canal or neural foraminal stenosis. L5-S1: Minimal disc desiccation with small broad-based central disc protrusion which flattens the ventral thecal sac. No significant foraminal or central canal narrowing. IMPRESSION: 1. Minimal disc desiccation with small broad-based central disc protrusion at L5-S1 flattens the ventral thecal sac without central canal or foraminal narrowing. 2. No additional discogenic degenerative changes identified throughout the lumbar spine. No central canal or significant foraminal narrowing. 3. Normal appearance of the cauda equina. The above report was generated using voice recognition software. It may contain grammatical, syntax or spelling errors. Electronically signed by: Juan Ramon Silverman M.D. 08/06/2017 9:29 PM Dictated Date/Time: 08/06/2017 9:23 PM
--- NOTE | 2017-08-06 21:58 | EMERGENCY ROOM VISIT NOTE ---
ED Visit Note First contact with patient: 19:21 CHIEF COMPLAINT: Back pain HISTORY OF PRESENTING ILLNESS: This is a 21-year-old female who presents to the emergency room with complaint of low back pain for the past week that has been getting progressively worse. The patient states that she started with pain in the low part of her back that radiated into her right buttock/hip area, then progressed to radiating down the leg to her foot. She reports initially having some tingling, now states that she has decreased feeling in the leg and numbness in her foot. She states that today the pain spread to the left side of her lower back and down her left leg as well. She states for the past 2 days she has been having issues with her bowels and bladder, stating that when she gets the feeling she needs to go to the bathroom she has to go immediately, or she "doesn't make it in time." She states she has had urinary incontinence twice for this reason. She denies any saddle paresthesia, fevers or chills, direct trauma to her lower back, falls, or previous back injury. She reports a history of scoliosis which gives her some chronic back and hip pain. She reports that she had a CT scan of her lower back a year ago that showed a "disc protrusion at L5-S1." She has never had any surgeries on her back, she denies any spinal injections. She denies any other symptoms of headaches, neck pain, chest pain, shortness of breath, abdominal pain, nausea or vomiting, fevers or chills, dysuria or urinary frequency, bloody or black stools, or rash. REVIEW OF SYSTEMS: A complete 10 point review of systems was reviewed with the patient with pertinent positives and negatives as per history of present illness. All else were negative. PAST MEDICAL HISTORY: Asthma, anxiety SOCIAL HISTORY: Lives at home. She is a [employer] student. She denies tobacco use, alcohol use, illicit drug use specifically denies IV drug abuse. ALLERGIES: Reviewed in chart. PHYSICAL EXAM: CONSTITUTIONAL: Pleasant and cooperative. No acute distress, but is obviously in pain and slow to move throughout the exam. Well hydrated. HEENT: Normocephalic, atraumatic. Pupils equal, round and reactive to light, EOMI. TMs normal. Pharynx normal. Moist mucous membranes. NECK: Supple, full active range of motion without discomfort. RESPIRATORY: Clear to auscultation bilaterally with no wheezing, crackles, rhonchi or stridor. Equal expansion bilaterally. CARDIOVASCULAR: Regular rate and rhythm with no murmurs, rubs or gallops. Normal peripheral perfusion. No edema. GASTROINTESTINAL: Soft, nontender, nondistended. No palpable masses or HSM. Bowel sounds present in all quadrants. Decreased rectal tone noted on STEPHANIE. BACK: Midline tenderness of the lumbar spine, most tender at L5-S1. Bilateral paraspinous muscle tenderness to palpation. EXTREMITIES: No gross deformities noted of the extremities. 2+ radial and dorsalis pedis pulses palpated throughout. FROM with no tremors, fasciculations , or clonus noted on PROM throughout. +5/5 strength noted in UE bilaterally. 5/ 5 strength in the left lower extremity, 4/5 strength in the right lower extremity, specifically with dorsiflexion and hip flexion. Decreased sensation to the right lower extremity when compared to the left to light touch. Unable to distinguish sharp and dull in the right lower extremity. Positive straight leg raise bilaterally. MUSCULOSKELETAL: Full range of motion of all joints without discomfort. INTEGUMENTARY: No rash or other significant dermatologic conditions noted. NEUROLOGIC: Alert and oriented X 4 with normal affect. Cranial nerves II-XII grossly intact. No focal neurologic deficits noted. 2+ patellar and Achilles deep tendon reflexes equal bilaterally. ED COURSE AND MEDICAL DECISION MAKING: CC: Patient presenting with complaint of back pain DIFFERENTIAL DIAGNOSIS: Includes, but not limited to lumbar strain/sprain, sciatica, lumbar radiculopathy, disc herniation, vertebral fracture, spinal cord compression including cauda equina, among others. INTERPRETATION OF LABS: UA negative for infection, urine negative. IMAGING: LUMBAR SPINE W/O CONTRAST CLINICAL HISTORY: 21 years-old Female with incont, RLE weak/numb, eval cauda equina. Acute right lower extremity weakness and numbness COMPARISON: CT abdomen and pelvis 04/04/2017 TECHNIQUE: Multiplanar, multi sequence MRI of the lumbar spine was performed without intravenous contrast. FINDINGS: The large [id number] deli associate localizer images demonstrate an anteflexed uterus. No gross abnormality identified within the abdomen, pelvis or paraspinal structures. No aortic aneurysm or adenopathy identified. No acute fracture, focal bone marrow edema or subluxation. Conus medullaris terminates at the T12-L1 level. Signal within the imaged thoracic spinal cord is within normal limits. The cauda equina appear to be unremarkable. T12-L1: No central canal or neural foraminal stenosis. L1-L2: No central canal or neural foraminal stenosis. L2-L3: No central canal or neural foraminal stenosis. L3-L4: No central canal or neural foraminal stenosis. L4-L5: No central canal or neural foraminal stenosis. L5-S1: Minimal disc desiccation with small broad-based central disc protrusion which flattens the ventral thecal sac. No significant foraminal or central canal narrowing. IMPRESSION: 1. Minimal disc desiccation with small broad-based central disc protrusion at L5-S1 flattens the ventral thecal sac without central canal or foraminal narrowing. 2. No additional discogenic degenerative changes identified throughout the lumbar spine. No central canal or significant foraminal narrowing. 3. Normal appearance of the cauda equina. MEDICATION RECONCILIATION: I attest that I have personally reviewed the patient 's current medication list. INITIAL VITAL SIGNS REVIEW: I reviewed the patient's vital signs and interpret them as follows: T: Afebrile; BP: Normotensive; HR: Within normal limits; RR : Within normal limits; Pulse Ox: Within normal limits on room air. Blood pressure screening: The patient was found to have normal blood pressure on screening and does not require follow-up for repeat blood pressure check. SUMMARY: Patient was evaluated at bedside, history and physical exam performed. Patient is alert and oriented, in no acute distress but does appear uncomfortable and is slow to move throughout exam, resting calmly in the stretcher. Exam concerning for mild weakness and possible sensory deficit of the right leg , with decreased rectal tone on STEPHANIE, and patient reporting incontinence issues, therefore an MRI of the lumbar spine was ordered to rule out spinal cord compression. Orders were placed at bedside for UA and urine , IM Valium and Toradol to treat back pain. Patient discussed with Dr. Nieto, who agrees with my assessment and plan. Labs and imaging reviewed as above, no acute surgical abnormalities. Patient reassessed multiple times throughout ED stay, she did have good improvement in her pain after IM Toradol, Valium, and PO Crownpoint. Patient was updated on all results and plan for discharge, she was encouraged to follow up with orthopedic weight reduction specialist this week for further management of her back pain. Patient was also given strict return precautions should her symptoms worsen, she verbalized understanding. Patient was provided with a small prescription for Crownpoint for continued pain management, and educated regarding its use. Patient was discharged home in stable condition and ambulatory, with her friend driving her home. Current/Historical Medications Scheduled Control Pills ( Control Pills), 1 TAB PO QAM Quetiapine Fumarate (Seroquel), 100 MG PO HS Venlafaxine Hcl (Effexor), 25 MG PO DAILY Venlafaxine Hcl (Effexor), 100 MG PO DAILY Scheduled PRN Albuterol Hfa (Ventolin Hfa), 2 PUFFS INH QID PRN for SOB/Wheezing Hydrocodone/Acetaminophen 5MG/325MG (Crownpoint 5MG/325MG), 1-2 TABLET PO Q6H PRN for Pain Allergies Coded Allergies: Egg (Verified Allergy, Mild, NAUSEA, 06/03/17) Penicillins (Unverified Allergy, Unknown, , 06/03/17) Azithromycin (Verified Adverse Reaction, Mild, diarrhea, 06/03/17) Diphenhydramine (Verified Adverse Reaction, Mild, HYPERACTIVE, 06/03/17) Vital Signs Date Time Temp Pulse Resp B/P (MAP) Pulse Ox O2 Delivery O2 Flow Rate FiO2 08/06/17 23:14 36.9 84 18 109/69 98 08/06/17 22:50 84 18 109/69 98 Room Air 08/06/17 20:55 86 18 117/74 99 Room Air 08/06/17 19:06 36.9 95 18 132/85 99 Room Air Laboratory Results Test 08/06/17 20:05 Urine Color YELLOW Urine Appearance CLEAR (CLEAR) Urine pH 6.5 (4.5-7.5) Urine Specific [place] 1.006 (1.000-1.030) Urine Protein NEG (NEG) Urine Glucose (UA) NEG (NEG) Urine Ketones NEG (NEG) Urine Occult Blood NEG (NEG) Urine Nitrite NEG (NEG) Urine Bilirubin NEG (NEG) Urine Urobilinogen NEG (NEG) Urine Leukocyte Esterase NEG (NEG) Urine Test NEG (NEG) Medications Administered Medications (Trade) Dose Ordered Sig/Rosie Route Start Time Stop Time Status Last Admin Dose Admin Diazepam (Valium Inj) 10 mg NOW STAT IM 08/06/17 19:38 08/06/17 19:40 DC 08/06/17 20:02 10 MG Ketorolac Tromethamine (Toradol Inj) 60 mg NOW STAT IM 08/06/17 19:38 08/06/17 19:40 DC 08/06/17 20:02 60 MG Acetaminophen/ Hydrocodone Bitart (Crown[place] 5/325 Tab) 1 tab NOW STAT PO 08/06/17 23:01 08/06/17 23:02 DC 08/06/17 23:12 1 TAB Acetaminophen/ Hydrocodone Bitart (C[place] 5/325mg Home Pack) 1 homepack UD ONCE PO 08/06/17 23:15 08/06/17 23:16 DC 08/06/17 23:12 1 HOMEPACK Departure Information Impression Primary Impression: Lumbar radiculopathy, acute Dispostion Home / Self-Care Condition GOOD Prescriptions Hydrocodone/Acetaminophen 5MG/325MG (Crownpoint 5MG/325MG) Tab 1-2 TABLET PO Q6H Y for Pain, #15 TAB For Initial Treatment Prov: Kenzie Morocho, CORPORATE LOGISTICS MANAGER 08/06/17 Referrals Juan Quintana M.D. (PCP) Ranjit Carreno, DO Patient Instructions ED Sciatica, [facility] Additional Instructions Take it easy for the next few days, no strenuous activity, heavy lifting, or bending/twisting motions, to allow your back to rest. Alternate heat and ice for comfort. After heat, you may do gentle stretching and massage to the low back. You may take ibuprofen 600 mg every 6-8 hours as needed for pain, not more than 2400 mg in 24 hours. You have been prescribed Crownpoint to be used as needed for SEVERE pain. This is a narcotic, do not drive, operate machinery, or drink alcohol while you are taking this medication. Follow up with the orthopedic weight reduction specialist in the next few days for further management. Call tomorrow morning for an appointment. You may also benefit from physical therapy. Please return to the ER if any worsening problems with bowel or bladder function , numbness in your groin, high fevers, severe abdominal pain or worsening back pain, or if loss of feeling/movement of legs. Work Instructions Return To Work: 5 days
[2017-08-06] MEDS ORDERED: HYDR-5688 PO (22:57)
[2017-08-06] MEDS ORDERED: HYDROCODONE/ACETAMIN 5/325MG TAB PO STA (23:01)
[2017-08-06 23:14] VITALS: BP 109/69; PULSE 84; TEMP 36.9; O2SAT 98
[2017-08-06] MEDS ORDERED: NORCO 5/325MG HOME PACK PO ONE (23:15)
== END 2017-08-06 23:16 | disposition home or self-care (01) ==
LOC: C.EDB 18:46 → C.EDD 23:16
DX: M54.16 Radiculopathy, lumbar region (principal); Z79.3 Long term (current) use of hormonal contraceptives; Z79.899 Other long term (current) drug therapy; R32 Unspecified urinary incontinence

== ENCOUNTER 2017-08-07 22:03 | Emergency (ER) | payer OTHER ==
[~2017-08-07] VITALS: Ht 160 cm; Wt 78.0 kg
[~2017-08-07 22:03] MED LIST changes: +HYDR-5688 PO
[2017-08-07 22:06] VITALS: TEMP 36.8
[2017-08-07] MEDS ORDERED: SODIUM CHLORIDE 0.9% 1000ML 1,000 ML IV STA (22:22)
[2017-08-07] MEDS ORDERED: METOCLOPRAMIDE HCL INJ 5 MG/ML 2 ML VIAL IV STA (22:22)
[2017-08-07] MEDS ORDERED: DiphenhydrAMINE HCL 50 MG/ML VIAL IV STA (22:22)
[2017-08-07] MEDS ORDERED: DEXAMETHASONE **PF** INJ 10 MG/ML VIAL IV ONE (22:30)
[2017-08-07 22:46] VITALS: Ht 160 cm; Wt 78.0 kg
[2017-08-07 23:19] LABS: BASO % 0.4 %; BASO ABS # 0.03 K/uL (0-0.2); EOS % 1.4 %; EOS ABS # 0.12 K/uL (0-0.5); HEMATOCRIT 34.1 % (37-47); HEMOGLOBIN 11.4 g/dL (12.0-16.0); IG# 0.01 K/uL (0.00-0.02); LYMPH % 38.1 %; LYMPH ABS # 3.19 K/uL (1.2-3.4); MEAN CORPUSCULAR HEMOGLOBIN 29.1 pg (25-34); MEAN CORPUSCULAR HGB CONC 33.4 g/dl (32-36); MONO % 8.7 %; MONO ABS # 0.73 K/uL (0.11-0.59); NEUT % 51.3 %; NEUT ABS # 4.29 K/uL (1.4-6.5); PLATELET COUNT 242 K/uL (130-400); RED CELL DISTRIBUTION WIDTH SD 41.6 fL (36.4-46.3); WHITE BLOOD COUNT 8.37 K/uL (4.8-10.8)
[2017-08-07 23:43] LABS: ALBUMIN 2.9 gm/dl (3.4-5.0); CALCIUM 8.7 mg/dl (8.5-10.1); CREATININE 0.79 mg/dl (0.60-1.20); POTASSIUM 3.5 mmol/L (3.5-5.1)
[2017-08-07 23:54] LABS: TOTAL PROTEIN 6.4 gm/dl (6.4-8.2)
[2017-08-08 00:17] VITALS: BP 115/73; PULSE 73; O2SAT 97
--- NOTE | 2017-08-08 00:18 | EMERGENCY ROOM VISIT NOTE ---
History First contact with patient: 22:08 Chief Complaint: BACK PAIN Stated Complaint: BACK PAIN, NUMBNESS IN LEGS History of Present Illness The patient is a 21 year old female who presents to the Emergency Room with complaints of chronic ongoing back pain for the past few weeks that radiates down her right leg who was seen here yesterday and had an MRI which showed Minimal disc desiccation with small broad-based central disc protrusion at L5- S1 flattens the ventral thecal sac without central canal or foraminal narrowing. Patient states she was prescribed Vicodin's and are making her feel quite lightheaded weak and dizzy with nausea and vomiting. Patient describes the pain as aching, ranging in severity 7 out of 10 to her low back that occasionally radiates down her legs. Patient states she was going to bathroom to vomit and then got lightheaded and dizzy and had severe back pain. Patient states her back feels slightly better now. Patient mainly comes in now she feels lightheaded. Patient has an appointment this Sunday to Dr. Webb for further evaluation treatment for ongoing back problems. Patient denies chest pain, dyspnea, fever, cough, congestion, abdominal pain, loss of bowel or bladder control, saddle anesthesia, IV drug abuse. Patient is able to ambulate. No recent illness. Patient has done physical therapy in the past for her back. She has not seen pain management. Review of Systems An 10 system review of systems was completed with positives and pertinent negatives listed in the HPI. Past Medical/Surgical History Medical Problems: (1) Asthma Social History Smoking Status: Never Smoker Smokeless Tobacco Use: No Alcohol Use: none Drug Use: none Marital Status: single Housing Status: lives with family Occupation Status: student Current/Historical Medications Scheduled Control Pills ( Control Pills), 1 TAB PO QAM Quetiapine Fumarate (Seroquel), 100 MG PO HS Venlafaxine Hcl (Effexor), 25 MG PO DAILY Venlafaxine Hcl (Effexor), 100 MG PO DAILY Scheduled PRN Albuterol Hfa (Ventolin Hfa), 2 PUFFS INH QID PRN for SOB/Wheezing Hydrocodone/Acetaminophen 5MG/325MG ([place] 5MG/325MG), 1-2 TABLET PO Q6H PRN for Pain Physical Exam Vital Signs Date Time Temp Pulse Resp B/P (MAP) Pulse Ox O2 Delivery O2 Flow Rate FiO2 08/07/17 23:00 81 08/07/17 22:46 Room Air 08/07/17 22:46 Room Air 08/07/17 22:06 36.8 94 18 140/90 98 Room Air Physical Exam VITALS: Vitals are noted on the nurse's note and reviewed by myself. Vital signs stable. GENERAL: Pleasant female able to ambulate on her toes and heels, in no acute distress, nondiaphoretic, well-developed well-nourished. SKIN: The skin was without rashes, erythema, edema, or bruising. There is no tenting of the skin. Capillary reflex less than 2 seconds. HEAD: Normocephalic atraumatic. EARS: External auditory canals clear, tympanic membranes pearly dorsey without erythema or effusion bilaterally. EYES: Pupils equal round and reactive to light and accommodation. Conjunctivae without injection, sclerae without icterus. Extraocular movements intact. NOSE: Patent, turbinates without inflammation or discharge. No sinus tenderness. MOUTH: Mucous membranes moist. Pharynx without erythema or exudate. Uvula midline. Airway patent. Tongue does not deviate. NECK: Supple without nuchal rigidity. No lymphadenopathy. No thyromegaly. Cervical spine is nontender. No JVD. HEART: Regular rate and rhythm without murmurs gallops or rubs. LUNGS: Clear to auscultation bilaterally without wheezes, rales or rhonchi. No dullness to percussion. No retractions or accessory muscle use. ABDOMEN: Positive bowel sounds x 4. Normal tympanic percussion. Soft, nontender, without masses or organomegaly. Smith sign negative. No guarding or rebound tenderness. MUSCULOSKELETAL: No muscle atrophy, erythema, or edema noted. Full range of motion without joint tenderness in all extremities. No tenderness to palpation. Normal gait. Strength 5/5 throughout. Negative straight leg raise bilaterally. No thoracic tenderness on exam. Minimal lumbar tenderness on exam diffusely. No step-offs. NEURO: Patient was alert and oriented to person place and time. Normal sensation to light and sharp touch. Deep tendon reflexes 2+ patella bilaterally. No focal neurological deficits. Medical Decision & Procedures Laboratory Results 08/07/17 23:11 Red Blood Count 3.92, Mean Corpuscular Volume 87.0, Mean Corpuscular Hemoglobin 29.1, Mean Corpuscular Hemoglobin Concent 33.4, Mean Platelet Volume 9.0, Neutrophils (%) (Auto) 51.3, Lymphocytes (%) (Auto) 38.1, Monocytes (%) (Auto) 8.7, Eosinophils (%) (Auto) 1.4, Basophils (%) (Auto) 0.4, Neutrophils # (Auto) 4.29, Lymphocytes # (Auto) 3.19, Monocytes # (Auto) 0.73, Eosinophils # (Auto) 0.12, Basophils # (Auto) 0.03 08/07/17 23:11 Test 08/07/17 23:11 08/07/17 23:24 White Blood Count 8.37 K/uL (4.8-10.8) Red Blood Count 3.92 M/uL (4.2-5.4) Hemoglobin 11.4 g/dL (12.0-16.0) Hematocrit 34.1 % (37-47) Mean Corpuscular Volume 87.0 fL (80-100) Mean Corpuscular Hemoglobin 29.1 pg (25-34) Mean Corpuscular Hemoglobin Concent 33.4 g/dl (32-36) Platelet Count 242 K/uL (130-400) Mean Platelet Volume 9.0 fL (7.4-10.4) Neutrophils (%) (Auto) 51.3 % Lymphocytes (%) (Auto) 38.1 % Monocytes (%) (Auto) 8.7 % Eosinophils (%) (Auto) 1.4 % Basophils (%) (Auto) 0.4 % Neutrophils # (Auto) 4.29 K/uL (1.4-6.5) Lymphocytes # (Auto) 3.19 K/uL (1.2-3.4) Monocytes # (Auto) 0.73 K/uL (0.11-0.59) Eosinophils # (Auto) 0.12 K/uL (0-0.5) Basophils # (Auto) 0.03 K/uL (0-0.2) RDW Standard Deviation 41.6 fL (36.4-46.3) RDW Coefficient of Variation 13.0 % (11.5-14.5) Immature Granulocyte % (Auto) 0.1 % Immature Granulocyte # (Auto) 0.01 K/uL (0.00-0.02) Anion Gap 9.0 mmol/L (3-11) Est Creatinine Clear Calc Drug Dose 111.4 ml/min Estimated GFR () 124.0 Estimated GFR (Non- 107.0 BUN/Creatinine Ratio 11.1 (10-20) Calcium Level 8.7 mg/dl (8.5-10.1) Magnesium Level 1.9 mg/dl (1.8-2.4) Total Bilirubin 0.3 mg/dl (0.2-1) Direct Bilirubin 0.1 mg/dl (0-0.2) Aspartate Amino Transf (AST/SGOT) 13 U/L (15-37) Alanine Aminotransferase (ALT/SGPT) 15 U/L (12-78) Alkaline Phosphatase 50 U/L (45-117) Total Protein 6.4 gm/dl (6.4-8.2) Albumin 2.9 gm/dl (3.4-5.0) Thyroid Stimulating Hormone (TSH) 4.650 uIu/ml (0.300-4.500) Human Chorionic Gonadotropin, Qual NEG (NEG) Urine Color YELLOW Urine Appearance CLEAR (CLEAR) Urine pH 6.5 (4.5-7.5) Urine Specific [place] 1.020 (1.000-1.030) Urine Protein NEG (NEG) Urine Glucose (UA) NEG (NEG) Urine Ketones NEG (NEG) Urine Occult Blood NEG (NEG) Urine Nitrite NEG (NEG) Urine Bilirubin NEG (NEG) Urine Urobilinogen NEG (NEG) Urine Leukocyte Esterase SMALL (NEG) Urine WBC (Auto) 1-5 /hpf (0-5) Urine RBC (Auto) 5-10 /hpf (0-4) Urine Hyaline Casts (Auto) 5-10 /lpf (0-5) Urine Epithelial Cells (Auto) >30 /lpf (0-5) Urine Bacteria (Auto) NEG (NEG) Medications Administered Medications (Trade) Dose Ordered Sig/Rosie Route Start Time Stop Time Status Last Admin Dose Admin Dexamethasone Sodium Phosphate (Dexamethasone Inj Pf) 10 mg NOW ONCE IV 08/07/17 22:30 08/07/17 22:31 DC 08/07/17 22:43 10 MG Metoclopramide HCl (Reglan Inj) 5 mg NOW STAT IV 08/07/17 22:22 08/07/17 22:24 DC 08/07/17 22:43 5 MG Sodium Chloride 1,000 ml @ 999 mls/hr Q1H1M STAT IV 08/07/17 22:22 08/07/17 23:22 DC 08/07/17 22:43 999 MLS/HR ED Course Prior records/ancillary studies reviewed and summarized above. Nursing notes reviewed. The patient's history was concerning for lightheadedness, vomiting and back pain. Differential diagnosis: Etiologies such as metabolic, infection, hypo/hyperglycemia, electrolyte abnormalities, cardiac sources, intracerebral event, toxicologic, neurologic, conus medullaris syndrome, cauda equina syndrome, epidural abscess, epidural hematoma, fracture, subluxation, UTI, pyelonephritis, strain, muscular spasm As well as others were entertained. Physical examination: As above. ER treatment provided: IV Lock Decadron, Reglan On reassessment the patient felt better. Diagnostics interpretation by me: The labs revealed no worrisome leukocytosis or electrolyte abnormality. Minimally elevated TSH. Negative hCG Imaging studies: [~ rep ct add3]] LUMBAR SPINE W/O CONTRAST CLINICAL HISTORY: 21 years-old Female with incont, RLE weak/numb, eval cauda equina. Acute right lower extremity weakness and numbness COMPARISON: CT abdomen and pelvis 04/04/2017 TECHNIQUE: Multiplanar, multi sequence MRI of the lumbar spine was performed without intravenous contrast. FINDINGS: The large [id number] fiscal analyst localizer images demonstrate an anteflexed uterus. No gross abnormality identified within the abdomen, pelvis or paraspinal structures. No aortic aneurysm or adenopathy identified. No acute fracture, focal bone marrow edema or subluxation. Conus medullaris terminates at the T12-L1 level. Signal within the imaged thoracic spinal cord is within normal limits. The cauda equina appear to be unremarkable. T12-L1: No central canal or neural foraminal stenosis. L1-L2: No central canal or neural foraminal stenosis. L2-L3: No central canal or neural foraminal stenosis. L3-L4: No central canal or neural foraminal stenosis. L4-L5: No central canal or neural foraminal stenosis. L5-S1: Minimal disc desiccation with small broad-based central disc protrusion which flattens the ventral thecal sac. No significant foraminal or central canal narrowing. IMPRESSION: 1. Minimal disc desiccation with small broad-based central disc protrusion at L5-S1 flattens the ventral thecal sac without central canal or foraminal narrowing. 2. No additional discogenic degenerative changes identified throughout the lumbar spine. No central canal or significant foraminal narrowing. 3. Normal appearance of the cauda equina. The above report was generated using voice recognition software. It may contain grammatical, syntax or spelling errors. Electronically signed by: Juan Ramon Silverman M.D. Exam and history seem consistent with ongoing lumbar radiculopathy who has been feeling lightheaded for the narcotics and dizzy. Patient was strongly encouraged not to take any more narcotics. She is advised to take a Medrol pack as directed and to take anti-inflammatories. She is advised to do core strengthening activities like yoga and/or Pilates and to maintain a healthy weight. She is advised to follow-up as scheduled with orthopedic spine on Sunday or here in the ER sooner for severe pain, inability to walk, fevers, worsening signs or symptoms or as needed. Patient was neurovascularly neurologically intact. She was able to ambulate on her toes and heels. She had no deficits on exam. She had an MRI yesterday with no severe acute findings. By the evaluation outlined above emergent etiologies such as infection, electrolyte abnormalities, cardiac sources, intracerebral event, toxologic, neurologic, abnormalities blood glucose, metabolic, as well as others were deemed relatively unlikely. The pt informed about the findings as listed above. All questions were answered and pleased with the treatment. Return instructions were outlined and the patient was discharged in stable condition. Outpatient prescription management: medrol dose pack, Zofran Referral: The patient was referred back to spine and/or primary care physician for follow- up in 2 to 3 days for a recheck of the current condition. case reviewed with my Attending Medical Decision as above Medication Reconcilliation Current Medication List: was personally reviewed by me Blood Pressure Screening Patient's blood pressure: Normal blood pressure Impression Primary Impression: Lightheadedness Departure Information Dispostion Home / Self-Care Condition GOOD Referrals Juan Quintana M.D. (PCP) Patient Instructions My [facility] Additional Instructions DO NOT drive, drink alcohol, operate machinery, or perform dangerous activities today. You were given medications in the ER that can affect your ability to safely function or operate a vehicle. Medrol Dosepak as directed. Zofran(odansetron) tablets 4mg: Take one and allow it to dissolve in your mouth every four to six hours as needed for nausea or vomiting. Ibuprofen(Motrin, Advil) may be used for fever or pain. Use 600mg every six hours as needed. Take with food. Avoid using more than 2400mg in a 24 hour period. Do not use 2400mg per day for more than three consecutive days without physician direction. Prolonged inappropriate use can lead to stomach upset or ulcers. (AND/OR) Acetaminophen(Tylenol) may be used for fever or pain. Use 1000mg every six hours as needed. Avoid using more than 3000mg in a 24 hour period. Rest and drink plenty of fluids as tolerated. Slow sips of water or sports drinks are recommended instead of large amounts all at once. Continue current medications. Once your stomach is settled start with a clear liquid diet (jello, soup broth, etc.) and then advance as tolerated. You should avoid full, heavy meals for about 24 hrs from the time your symptoms resolved. Return to the ER for persistent vomiting, fevers, abdominal pain, chest pains, difficulty breathing, black or bloody stools, worsening of your condition, or as needed. Follow up with your primary physician in 2-3 days for a recheck of your current condition.
[2017-08-08] MEDS ORDERED: METH4PAK PO (00:19)
[2017-08-08] MEDS ORDERED: ONDANSETRON HOME PACK 4MG OD TAB PO ONE (00:30)
== END 2017-08-08 00:37 | disposition home or self-care (01) ==
LOC: EDBD 22:03 → C.EDB 22:04
DX: R42 Dizziness and giddiness (principal); R11.2 Nausea with vomiting, unspecified; M54.9 Dorsalgia, unspecified; R20.0 Anesthesia of skin; J45.909 Unspecified asthma, uncomplicated; Z79.3 Long term (current) use of hormonal contraceptives; Z79.899 Other long term (current) drug therapy

== ENCOUNTER → 2017-08-15 | Outpatient (CLI) | payer OTHER ==
[~2017-08-15] MED LIST changes: +METH4PAK PO
== END | disposition home or self-care (01) ==
LOC: C.LAB1850 11:56
PROVIDERS: ATTEND Physician Assistant Medical
DX: R79.9 Abnormal finding of blood chemistry, unspecified (principal)

== ENCOUNTER 2017-09-03 12:05 | Emergency (ER) | payer OTHER ==
[~2017-09-03] VITALS: Ht 160 cm; Wt 79.2 kg
[~2017-09-03 12:05] MED LIST changes: -BCPILLS PO; -METH4PAK PO; -QUET1TAB34 PO; -VENL100T2 PO; -VENL25TA2 PO; -VNTHFA/IN INH
[2017-09-03 12:20] VITALS: Ht 160 cm; Wt 79.2 kg
[2017-09-03] MEDS ORDERED: KETOROLAC TROMETHAMINE 60 MG/2 ML VIAL IM STA (12:38)
[2017-09-03] MEDS ORDERED: ULT/50 PO (12:42)
[2017-09-03] MEDS ORDERED: CYCL10TA6 PO (12:42)
[2017-09-03] MEDS ORDERED: PRED20TA2 PO (12:42)
--- NOTE | 2017-09-03 13:17 | EMERGENCY ROOM VISIT NOTE ---
History First contact with patient: 12:25 Chief Complaint: BACK PAIN Stated Complaint: BULGING DISC RELATED PAIN,LACK OF COORDINATION History of Present Illness The patient is a 21 year old female who presents to the Emergency Room with complaints of back pain with radiation down her bilateral legs. The patient has had symptoms for roughly the past 5 weeks. Her discomfort initially began after moving into a new place. She came to the emergency department and had an MRI performed that did show some mild disc bulging at that initial visit about 4 weeks ago. The patient subsequently followed up twice with Manisha pérez, and is currently undergoing physical therapy. The patient was at physical therapy today and continues to have pain and worsening symptoms. She was not able to complete her physical therapy today and presents because of her persisting pain. The patient is admittedly frustrated with her symptoms as before this she was active and able to work a full-time job. She has not had fever or chills. No changes in using the bathroom. She will intermittently have numbness and burning down each of her legs which has been the same for the past several weeks. She has not taken anything today for pain. She rates her current discomfort in 8/10 that worsens with certain movements. Review of Systems More than 10 systems were reviewed and otherwise negative with the exception of history of present illness. Past Medical/Surgical History Medical Problems: (1) Asthma Family History No pertinent family history Social History Smoking Status: Never Smoker Alcohol Use: none Drug Use: none Marital Status: single Housing Status: lives with family Occupation Status: student Current/Historical Medications Scheduled Control Pills ( Control Pills), 1 TAB PO QAM Cyclobenzaprine Hcl (Flexeril), 10 MG PO TID Prednisone (Prednisone Tab), 2 TAB PO DAILY Quetiapine Fumarate (Seroquel), 200 MG PO HS Tramadol Hcl (Ultram), 50 MG PO Q8H Venlafaxine Hcl (Effexor), 25 MG PO DAILY Venlafaxine Hcl (Effexor), 100 MG PO DAILY Scheduled PRN Albuterol Hfa (Ventolin Hfa), 2 PUFFS INH QID PRN for SOB/Wheezing Physical Exam Vital Signs Date Time Temp Pulse Resp B/P (MAP) Pulse Ox O2 Delivery O2 Flow Rate FiO2 09/03/17 12:20 37.0 112 20 123/79 98 Room Air Physical Exam VITALS: Vitals are noted on the nurse's note and reviewed by myself. Vital signs stable. GENERAL: Well-developed, well-nourished, female, who is in no acute distress and resting comfortably. Patient is cooperative with the examination. NECK: Supple without nuchal rigidity. No lymphadenopathy. No thyromegaly. Cervical spine is nontender. HEART: Regular rate and rhythm without murmurs gallops or rubs. LUNGS: Clear to auscultation bilaterally without wheezes, rales or rhonchi. No retractions or accessory muscle use. BACK: Mild tenderness appreciated through the mid and low spine. Bilateral SI joint tenderness noted with the left greater than the right. Positive straight leg raise bilateral. No saddle paresthesias. DTRs intact distally. MUSCULOSKELETAL: No muscle atrophy, erythema, or edema noted. Full range of motion in all extremities. Medical Decision & Procedures Medications Administered Medications (Trade) Dose Ordered Sig/Rosie Route Start Time Stop Time Status Last Admin Dose Admin Ketorolac Tromethamine (Toradol Inj) 60 mg NOW STAT IM 09/03/17 12:38 09/03/17 12:41 DC 09/03/17 12:48 60 MG ED Course Physical exam and history were performed. Nursing notes, EMR, and Medication List were personally reviewed. Patient appears to have persisting back pain for roughly the past month. The patient does not have significant acute neurologic findings to suggest cauda equina. I had a lengthy discussion regarding options of care. The patient seems to be doing the appropriate steps, and has already had MRI, orthospine evaluation, and physical therapy. She does have an appointment with orthopedics in 12 days to discuss further options of care. I will defer imaging at this time, as she did have recent x-rays at [facility]. The patient was given 60 mg IM Toradol here in the department. I will give her a continuation course of tramadol, Flexeril, and prednisone. She is to contact [facility] and try to schedule an earlier appointment. She was otherwise invited back to the ER with any new, worsening, or concerning symptoms. The chart was completed utilizing [employer] Voice Recognition Software. Grammatical errors, random word insertions, pronoun errors, and incomplete sentences are an occasional consequence of this system due to software limitations, ambient noise, and hardware issues. Any formal questions or concerns about the content, text, or information contained within the body of this dictation should be directly addressed to the provider for clarification. . Medical Decision Differential diagnosis: Etiologies such as musculoskeletal, disc herniation, fracture, aortic disease, metastatic disease, cord compression, discitis, infection, renal colic, gastrointestinal, acute exacerbation of chronic back pain, sciatica, cauda equina, as well as others were entertained. [place] Drug Monitoring Program Search Results: patient reviewed within database, no issues identified Impression Primary Impression: Low back pain Departure Information Dispostion Home / Self-Care Condition GOOD Prescriptions Prednisone (Prednisone Tab) 20 Mg Tab 2 TAB PO DAILY for 5 Days, #10 TAB Prov: Salazar Tello PA-C 09/03/17 Cyclobenzaprine Hcl (FLEXERIL) 10 Mg Tab 10 MG PO TID for 7 Days, #21 TAB Prov: Salazar Tello PA-C 09/03/17 Tramadol Hcl (ULTRAM) 50 Mg Tab 50 MG PO Q8H for 3 Days, #9 TAB Prov: Salazar Tello PA-C 09/03/17 Forms HOME CARE DOCUMENTATION FORM, IMPORTANT VISIT INFORMATION Patient Instructions My [facility] Additional Instructions You were seen and evaluated today on an emergency basis only. This is not a substitute for, or an effort to provide, complete comprehensive medical care. It is not possible to recognize and treat all injuries or illnesses in a single emergency department visit. For this reason it is recommended that you followup with Orthospine as scheduled in 2 weeks for ongoing care and evaluation. For baseline pain relief you may alternate ibuprofen and acetaminophen every 4 hours for pain control. Take 600 mg ibuprofen (Advil) and then 4 hours later take 1000 mg acetaminophen (Tylenol). Do not take more than 3000 mg acetaminophen in a single day. Take tramadol 50 mg every 8 hours as needed for breakthrough pain. Do not drink or drive on this medication. Flexeril 1 tablet up to 3 times a day as needed for muscle spasms. No driving, working, or alcohol use with Flexeril. Take prednisone the next 5 days. This medication is best tolerated in the morning with food. You are welcome to return to the emergency department anytime with new, worsening, or concerning symptoms.
[2017-09-03 13:19] VITALS: BP 108/74; PULSE 92; TEMP 37; O2SAT 99
[2017-09-03] MEDS ORDERED: QUET1TAB34 PO (14:08)
[2017-09-03] MEDS ORDERED: VENL100T2 PO (14:08)
[2017-09-03] MEDS ORDERED: VENL25TA2 PO (14:08)
[2017-09-03] MEDS ORDERED: VNTHFA/IN INH (14:59)
[2017-09-03] MEDS ORDERED: BCPILLS PO (22:42)
== END 2017-09-03 13:20 | disposition home or self-care (01) ==
LOC: C.EDB 12:07 → C.EDD 13:20
DX: M54.5 Low back pain (principal); J45.909 Unspecified asthma, uncomplicated; Z79.3 Long term (current) use of hormonal contraceptives

== ENCOUNTER → 2017-09-07 | Outpatient (CLI) | payer OTHER ==
[~2017-09-07] MED LIST changes: +BCPILLS PO; +CYCL10TA6 PO; -HYDR-5688 PO; +PRED20TA2 PO; +QUET1TAB34 PO; +ULT/50 PO; +VENL100T2 PO; +VENL25TA2 PO; +VNTHFA/IN INH
== END | disposition home or self-care (01) ==
LOC: C.PAPS 18:12
PROVIDERS: ATTEND Obstetrics & Gynecology
DX: Z12.4 Encounter for screening for malignant neoplasm of cervix (principal)

== ENCOUNTER → 2017-09-07 | Outpatient (CLI) | payer OTHER | END | disposition home or self-care (01) | LOC: C.LABSPEC 17:29 | PROVIDERS: ATTEND Obstetrics & Gynecology | DX: Z11.3 Encounter for screening for infections with a predominantly sexual mode of transmission (principal); R39.9 Unspecified symptoms and signs involving the genitourinary system ==

== ENCOUNTER 2017-09-15 17:15 | Emergency (ER) | payer OTHER ==
[~2017-09-15] VITALS: Ht 160 cm; Wt 80.0 kg
[~2017-09-15 17:15] MED LIST changes: -CYCL10TA6 PO; -PRED20TA2 PO; -ULT/50 PO
[2017-09-15 17:18] VITALS: TEMP 36.9; Ht 160 cm; Wt 80.0 kg
[2017-09-15] MEDS ORDERED: KETOROLAC TROMETHAMINE 60 MG/2 ML VIAL IM STA (17:51)
[2017-09-15] MEDS ORDERED: CYCLOBENZAPRINE HCL 10 MG TAB PO STA (17:51)
--- NOTE | 2017-09-15 17:59 | EMERGENCY ROOM VISIT NOTE ---
History Report prepared by Daniela: Gregorio Castro Under the Supervision of: Dr. Sayra Taylor M.D. 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 The patient states that she has had a bulging disc for the past month. She notes that she has had physical therapy and has seen a environmental management specialist with no relief of her pain. She reports that she has fallen three times recently and states that she fell again today. The patient states that her symptoms worsen when she walks. She also complains of numbness in her feet and groin, occasional leg pain, pressure in her head and back, and occasional swelling in her feet, ankles, and knees. She notes that it is also more difficult for her to urinate and have a bowel movement. She reports that she cannot tolerate warm baths anymore because she is too sensitive to the temperature. The patient states that she is currently on an anti-inflammatory. Source of History: patient Onset: a month ago Position: back (lower) Timing: constant Modifying Factors (Worsening): other (walking) Associated Symptoms: + numbness (in her feet and groin) Note: The patient also complains of occasional leg pain, pressure in her head and back , and occasional swelling in her feet, ankles, and knees. She notes that it is also more difficult for her to urinate and have a bowel movement. She reports that she can no longer tolerate warm baths. Review of Systems See HPI for pertinent positives & negatives. A total of 10 systems reviewed and were otherwise negative. Past Medical & Surgical Medical Problems: (1) Asthma (2) Bulging disc (3) Scoliosis Family History No pertinent family history stated. Social History Smoking Status: Never Smoker Alcohol Use: none Drug Use: none Marital Status: single Housing Status: lives with family Occupation Status: student Current/Historical Medications Scheduled Control Pills ( Control Pills), 1 TAB PO QAM Quetiapine Fumarate (Seroquel), 200 MG PO HS Venlafaxine Hcl (Venlafaxine Hcl Er), 225 MG PO QAM Scheduled PRN Albuterol Hfa (Ventolin Hfa), 2 PUFFS INH QID PRN for SOB/Wheezing Allergies Coded Allergies: Egg (Verified Allergy, Mild, NAUSEA, 09/15/17) Penicillins (Unverified Allergy, Unknown, , 09/15/17) Azithromycin (Verified Adverse Reaction, Mild, diarrhea, 09/15/17) Diphenhydramine (Verified Adverse Reaction, Mild, HYPERACTIVE, 09/15/17) Physical Exam Vital Signs Date Time Temp Pulse Resp B/P (MAP) Pulse Ox O2 Delivery O2 Flow Rate FiO2 09/15/17 20:27 72 18 112/54 98 Room Air 09/15/17 19:38 94 18 112/67 100 Room Air 09/15/17 18:55 93 15 105/67 95 Room Air 09/15/17 17:18 36.9 101 20 116/81 98 Room Air Physical Exam Vital signs reviewed. General: Well-appearing female, in no significant distress. HEENT: No scleral icterus, PERRLA, neck supple. Atraumatic. Cardiovascular: Regular rate and rhythm, no extra sounds. Pulmonary: Clear to auscultation bilaterally, normal work of breathing. Abdomen: Soft, nontender, nondistended, positive bowel sounds. Musculoskeletal: Atraumatic, no peripheral edema. negative CVA tenderness Neurologic: Patient awake alert and oriented x 3, Slight discomfort with right greater than left straight leg raise, symmetric 3/5 strength to dorsiflexion bilaterally, equal and strong plantar flexion. Skin: Warm, dry, no rash Medical Decision & Procedures ER Provider Diagnostic Interpretation: Radiology results as stated below per my review and radiologist interpretation: LUMBAR SPINE W/O CONTRAST FINDINGS: For the purpose of the report the L5-S1 disc space will be located on axial image 27 of 30. Normal signal characteristics the vertebral bodies as well as intervertebral disc. L1-L2: No significant central canal or neural foraminal narrowing. L2-L3: No significant central canal or neural foraminal narrowing. L3-L4: No significant central canal or neural foraminal narrowing. L4-L5: No significant central canal or neural foraminal narrowing. L5-S1: Minimal central disc bulge. Contact with but no significant deformity or displacement of the thecal sac. IMPRESSION: 1. Minimal central disc bulge L5-S1 of doubtful clinical significance. . 2. Study is otherwise entirely normal. 3. No significant change from the prior study. The above report was generated using voice recognition software. It may contain grammatical, syntax or spelling errors. Electronically signed by: Srinath Ibarra M.D. 09/15/2017 7:53 PM Medications Administered Medications (Trade) Dose Ordered Sig/Rosie Route Start Time Stop Time Status Last Admin Dose Admin Cyclobenzaprine HCl (Flexeril Tab) 5 mg NOW STAT PO 09/15/17 17:51 09/15/17 17:53 DC 09/15/17 18:22 5 MG Ketorolac Tromethamine (Toradol Inj) 60 mg NOW STAT IM 09/15/17 17:51 09/15/17 17:53 DC 09/15/17 18:23 60 MG ED Course 174: Past medical records reviewed. The patient was evaluated in room C10. A complete history and physical examination was performed. 175: Toradol Inj 60mg IM, Flexeril Tab 5mg PO 2007: I reevaluated and updated the patient. Upon reevaluation, the patient appeared to have improvement of her symptoms. I discussed findings with her. She verbalized agreement of the treatment plan. The patient was discharged home. Medical Decision Differential diagnosis: Etiologies such as musculoskeletal, disc herniation, fracture, aortic disease, metastatic disease, cord compression, discitis, infection, renal colic, gastrointestinal, acute exacerbation of chronic back pain, sciatica, cauda equina, as well as others were entertained. This pt was evaluated and appeared to be in no distress. She was given po flexeril and 60 mg of IM toradol. Due to pt complaint of frequent falls and ambulatory disfunction an MRI was ordered to r/o urgent neurologic compromise. MRI is read as above, with no urgent issues identified. I did review the findings with the pt and her mother. She has f/u established with Dr Conklin of spine surgery. Pt will continue antiinflammatory medications and return to the ED for worsening of symptoms or any medical concerns. Medication Reconcilliation Current Medication List: was personally reviewed by me Blood Pressure Screening Patient's blood pressure: Normal blood pressure Blood pressure disposition: Did not require urgent referral Impression Primary Impression: Lumbar back pain Scribe Attestation The scribe's documentation has been prepared under my direction and personally reviewed by me in its entirety. I confirm that the note above accurately reflects all work, treatment, procedures, and medical decision making performed by me. Departure Information Dispostion Home / Self-Care Referrals Juan Quintana M.D. (PCP) Forms HOME CARE DOCUMENTATION FORM, IMPORTANT VISIT INFORMATION Patient Instructions My [facility] [employer] [facility] Additional Instructions Diagnosis: Lumbar back pain Please follow up with your doctor. The disc bulge at L5-S1 is considered to be of minimal significance. Ibuprofen 600 mg every 6 hours as needed for pain with food. Return to the ED for worsening of symptoms or any medical concerns.
[2017-09-15] MEDS ORDERED: VENL225T27 PO (18:18)
--- NOTE | 2017-09-15 19:54 | DIAGNOSTIC IMAGING REPORT ---
LUMBAR SPINE W/O CONTRAST HISTORY: Pain. Neuropathy. lumbar radiculopathy, ? weakness, falls TECHNIQUE: Multiplanar multisequence MRI of the lumbar spine was performed without the use of contrast. COMPARISON: 08/06/2017 FINDINGS: For the purpose of the report the L5-S1 disc space will be located on axial image 27 of 30. Normal signal characteristics the vertebral bodies as well as intervertebral disc. L1-L2: No significant central canal or neural foraminal narrowing. L2-L3: No significant central canal or neural foraminal narrowing. L3-L4: No significant central canal or neural foraminal narrowing. L4-L5: No significant central canal or neural foraminal narrowing. L5-S1: Minimal central disc bulge. Contact with but no significant deformity or displacement of the thecal sac. IMPRESSION: 1. Minimal central disc bulge L5-S1 of doubtful clinical significance. . 2. Study is otherwise entirely normal. 3. No significant change from the prior study. The above report was generated using voice recognition software. It may contain grammatical, syntax or spelling errors. Electronically signed by: Srinath Ibarra M.D. 09/15/2017 7:53 PM Dictated Date/Time: 09/15/2017 7:50 PM
[2017-09-15 20:27] VITALS: BP 112/54; PULSE 72; O2SAT 98
== END 2017-09-15 20:29 | disposition home or self-care (01) ==
LOC: C.EDB 17:17 → C.EDC 20:29
DX: M54.5 Low back pain (principal); J45.909 Unspecified asthma, uncomplicated; M41.9 Scoliosis, unspecified; Z91.012 Allergy to eggs; Z88.8 Allergy status to other drugs, medicaments and biological substances

== ENCOUNTER → 2017-09-18 | Outpatient (CLI) | payer OTHER ==
[~2017-09-18] MED LIST changes: +GADAVIST IV PRN; -VENL100T2 PO; +VENL225T27 PO; -VENL25TA2 PO
--- NOTE | 2017-09-18 07:48 | DIAGNOSTIC IMAGING REPORT ---
MRI OF THE BRAIN COMBO CLINICAL HISTORY: Chronic migraine. Head injury. Muscle spasms. COMPARISON STUDY: MRI of the brain dated 03/23/2016. TECHNIQUE: MRI of the brain was performed utilizing various T1 and T2-weighted sequences in the axial, sagittal, and coronal planes. Contrast-enhanced sequences were acquired following the administration of 7.5 cc of Gadavist. The examination is performed using the multiple sclerosis protocol. FINDINGS: Brain parenchyma: The brain parenchyma is normal in appearance. There is no hemorrhage or mass effect. There is no restricted diffusion to suggest acute ischemia. No enhancing mass lesion is identified on the postcontrast images. Blake-white matter differentiation is preserved. No extra-axial fluid collection is seen. The cerebellar tonsils are normal in configuration. Ventricles, sulci, and cisterns: Normal in configuration. Pituitary and sella: Unremarkable. Intracranial vasculature: Normal flow voids are maintained at the skull base. Orbits: The bony orbits are grossly intact. Orbital contents are normal in appearance. Sinuses and mastoids: Clear. Calvarium: Unremarkable. Cervical cord: Partially visualized cervical spinal cord is normal in morphology and signal intensity. IMPRESSION: Normal examination. Electronically signed by: Theo Garnica M.D. 09/18/2017 7:46 AM Dictated Date/Time: 09/18/2017 7:43 AM
== END | disposition home or self-care (01) ==
LOC: C.MRI 06:47
PROVIDERS: ATTEND Physician Assistant
DX: S09.90XA Unspecified injury of head, initial encounter (principal); X58.XXXA Exposure to other specified factors, initial encounter

== ENCOUNTER → 2017-09-20 | Outpatient (CLI) | payer OTHER ==
[~2017-09-20] MED LIST changes: -GADAVIST IV PRN
[2017-09-25 12:17] LABS: ANA SCREEN TC 249X NEGATIVE (NEGATIVE); ANTI-SS-A <1.0 NEG AI (<1.0 NEG); ANTI-SS-B <1.0 NEG AI (<1.0 NEG); COMPLEMENT C3 TC 44859W 185 MG/DL (90-180); COMPLEMENT C4 TC 44982E 33 MG/DL (16-47)
== END | disposition home or self-care (01) ==
LOC: C.LAB1850 12:02
PROVIDERS: ATTEND Physician Assistant
DX: R51 Headache (principal); R42 Dizziness and giddiness; M79.1 Myalgia; R20.0 Anesthesia of skin; M25.50 Pain in unspecified joint

== ENCOUNTER 2017-10-07 13:17 | Emergency (ER) | payer OTHER ==
[~2017-10-07] VITALS: Ht 160 cm; Wt 78.9 kg
[2017-10-07 13:26] VITALS: TEMP 36.7; Ht 160 cm; Wt 78.9 kg
[2017-10-07] MEDS ORDERED: SODIUM CHLORIDE 0.9% 1000ML 1,000 ML IV ONE (14:00)
[2017-10-07] MEDS ORDERED: ONDANSETRON INJ 2 MG/ML 2 ML VIAL IV PRN (14:00)
[2017-10-07] MEDS ORDERED: DICYCLOMINE HCL 20 MG TAB PO ONE (14:00)
--- NOTE | 2017-10-07 14:15 | EMERGENCY ROOM VISIT NOTE ---
History First contact with patient: 13:43 Chief Complaint: FLU LIKE SX Stated Complaint: SORE THROAT,VOMITING,ABDOMINAL PAIN,FATIGUE History of Present Illness The patient is a 22 year old female who presents to the Emergency Room with complaints of nausea and vomiting for the last week. She has also had diarrhea. She describes some intermittent, lower abdominal cramping. She has felt cold and chilled. She did not take her temperature at home. She denies any sick contacts. The patient is also complaining of a fairly severe sore throat over the last several days. She is concerned because she had unprotected oral intercourse with a new partner. Review of Systems 10 system review performed and negative unless noted in HPI or below Past Medical/Surgical History Medical Problems: (1) Asthma (2) Bulging disc (3) Scoliosis Social History Smoking Status: Never Smoker Alcohol Use: none Drug Use: none Marital Status: single Housing Status: lives with family Occupation Status: student Current/Historical Medications Scheduled Control Pills ( Control Pills), 1 TAB PO QAM Dicyclomine Hcl (Bentyl), 10 MG PO TID Gabapentin (Neurontin), 300 MG PO QAM Gabapentin (Neurontin), 600 MG PO QPM Ondasetron Odt (Zofran Odt), 4 MG SL Q6H Quetiapine Fumarate (Seroquel), 200 MG PO HS Venlafaxine Hcl (Venlafaxine Hcl Er), 225 MG PO QAM Scheduled PRN Albuterol Hfa (Ventolin Hfa), 2 PUFFS INH QID PRN for SOB/Wheezing Alprazolam (Xanax), 1 MG PO TID PRN for Anxiety/Agitation Physical Exam Vital Signs Date Time Temp Pulse Resp B/P (MAP) Pulse Ox O2 Delivery O2 Flow Rate FiO2 10/07/17 17:01 73 16 98/64 97 10/07/17 15:31 70 17 111/60 99 Room Air 10/07/17 14:31 97 18 115/75 98 Room Air 10/07/17 13:26 36.7 85 18 112/61 98 Room Air Physical Exam VITALS: Vitals are noted on the nurse's note and reviewed by myself. Vital signs stable. GENERAL: 22-year-old female, in no acute distress, nondiaphoretic, well- developed well-nourished. SKIN: The skin was without rashes, erythema, edema, or bruising. HEAD: Normocephalic atraumatic. EYES: Conjunctivae without injection, sclerae without icterus. Extraocular movements intact. MOUTH: Mucous membranes moist. Tonsils are not enlarged. Pharynx with mild erythema. Uvula midline. Airway patent. Tongue does not deviate. NECK: Supple without nuchal rigidity. No lymphadenopathy. Cervical spine is nontender. No JVD. HEART: Regular rate and rhythm without murmurs gallops or rubs. LUNGS: Clear to auscultation bilaterally without wheezes, rales or rhonchi. No accessory muscle use. ABDOMEN: Positive bowel sounds x 4.Soft, nontender, without organomegaly. No guarding or rebound tenderness. MUSCULOSKELETAL: No muscle atrophy, erythema, or edema noted. Strength 5/5 throughout. NEURO: Patient was alert and oriented to person place and time. Normal sensation to touch. No focal neurological deficits. Medical Decision & Procedures ER Provider Diagnostic Interpretation: Chest/abdominal x-ray Osseous structures normal. IMPRESSION: 1. No acute cardiopulmonary disease. 2. No radiographic evidence of acute intra-abdominal pathology. Electronically signed by: Lazarus Mejia M.D. 10/07/2017 2:53 PM Laboratory Results 10/07/17 14:14 Red Blood Count 4.08, Mean Corpuscular Volume 86.5, Mean Corpuscular Hemoglobin 29.2, Mean Corpuscular Hemoglobin Concent 33.7, Mean Platelet Volume 8.8, Neutrophils (%) (Auto) 46.5, Lymphocytes (%) (Auto) 42.4, Monocytes (%) (Auto) 8.4, Eosinophils (%) (Auto) 2.3, Basophils (%) (Auto) 0.3, Neutrophils # (Auto) 3.21, Lymphocytes # (Auto) 2.93, Monocytes # (Auto) 0.58, Eosinophils # (Auto) 0.16, Basophils # (Auto) 0.02 10/07/17 14:14 Test 10/07/17 14:14 10/07/17 14:16 10/07/17 16:30 White Blood Count 6.91 K/uL (4.8-10.8) Red Blood Count 4.08 M/uL (4.2-5.4) Hemoglobin 11.9 g/dL (12.0-16.0) Hematocrit 35.3 % (37-47) Mean Corpuscular Volume 86.5 fL (80-100) Mean Corpuscular Hemoglobin 29.2 pg (25-34) Mean Corpuscular Hemoglobin Concent 33.7 g/dl (32-36) Platelet Count 258 K/uL (130-400) Mean Platelet Volume 8.8 fL (7.4-10.4) Neutrophils (%) (Auto) 46.5 % Lymphocytes (%) (Auto) 42.4 % Monocytes (%) (Auto) 8.4 % Eosinophils (%) (Auto) 2.3 % Basophils (%) (Auto) 0.3 % Neutrophils # (Auto) 3.21 K/uL (1.4-6.5) Lymphocytes # (Auto) 2.93 K/uL (1.2-3.4) Monocytes # (Auto) 0.58 K/uL (0.11-0.59) Eosinophils # (Auto) 0.16 K/uL (0-0.5) Basophils # (Auto) 0.02 K/uL (0-0.2) RDW Standard Deviation 38.8 fL (36.4-46.3) RDW Coefficient of Variation 12.2 % (11.5-14.5) Immature Granulocyte % (Auto) 0.1 % Immature Granulocyte # (Auto) 0.01 K/uL (0.00-0.02) Anion Gap 7.0 mmol/L (3-11) Est Creatinine Clear Calc Drug Dose 86.9 ml/min Estimated GFR () 91.5 Estimated GFR (Non- 79.0 BUN/Creatinine Ratio 9.1 (10-20) Calcium Level 8.6 mg/dl (8.5-10.1) Total Bilirubin 0.5 mg/dl (0.2-1) Aspartate Amino Transf (AST/SGOT) 27 U/L (15-37) Alanine Aminotransferase (ALT/SGPT) 28 U/L (12-78) Alkaline Phosphatase 56 U/L (45-117) Total Protein 7.0 gm/dl (6.4-8.2) Albumin 3.4 gm/dl (3.4-5.0) Globulin 3.6 gm/dl (2.5-4.0) Albumin/Globulin Ratio 0.9 (0.9-2) Lipase 69 U/L (73-393) Urine Color DK YELLOW Urine Appearance CLOUDY (CLEAR) Urine pH 6.5 (4.5-7.5) Urine Specific [place] 1.024 (1.000-1.030) Urine Protein TRACE (NEG) Urine Glucose (UA) NEG (NEG) Urine Ketones TRACE (NEG) Urine Occult Blood TRACE (NEG) Urine Nitrite NEG (NEG) Urine Bilirubin NEG (NEG) Urine Urobilinogen NEG (NEG) Urine Leukocyte Esterase LARGE (NEG) Urine WBC (Auto) >30 /hpf (0-5) Urine RBC (Auto) 0-4 /hpf (0-4) Urine Hyaline Casts (Auto) 5-10 /lpf (0-5) Urine Epithelial Cells (Auto) >30 /lpf (0-5) Urine Bacteria (Auto) 3+ (NEG) Urine Pathogenic Casts /lpf (0) Medications Administered Medications (Trade) Dose Ordered Sig/Rosie Route Start Time Stop Time Status Last Admin Dose Admin Sodium Chloride 1,000 ml @ 999 mls/hr Q1H1M ONCE IV 10/07/17 14:00 10/07/17 15:00 DC 10/07/17 14:24 999 MLS/HR Dicyclomine HCl (Bentyl Tab) 20 mg ONE ONCE PO 10/07/17 14:00 10/07/17 14:01 DC 10/07/17 14:24 20 MG ED Course Patient was seen and examined Vital signs including blood pressure were reviewed medications list was verified with patient Labs were obtained, and a saline lock was established The patient was medicated with Zofran 4 mg IV and Bentyl 20 mg p.o. She was hydrated with 1 L of normal saline Upon reevaluation, the patient was feeling better. She was tolerating liquids. We discussed her workup. She voiced understanding, and was comfortable being discharged home. I reviewed discharge instructions the patient. They voiced understanding and had no further questions. Medical Decision Differential diagnosis: Strep pharyngitis, other bacterial pharyngitis, viral pharyngitis, viral gastroenteritis, bacterial gastroenteritis, bowel obstruction This patient is a 22-year-old female presents to the emergency department with vomiting, diarrhea and throat pain. On exam, she was nontoxic in appearance. She had mild erythema of the throat. Abdomen was benign. Workup reveals no leukocytosis. She does have greater than 30 WBCs in her urine. The specimen also has many epithelial cells. Patient does not have any urinary symptoms. This will be sent for culture. I will not treat her with antibiotics. The patient possibly has a viral GI illness. She will be treated with antiemetics and Bentyl. She was tolerating liquids. I believe she is stable to be discharged home. She will follow-up with her primary care physician for recheck , and return with worsening symptoms. This chart was completed in part utilizing [employer] Speech Voice Recognition software. Attempts were made to minimize the grammatical errors, random word insertions, pronoun errors and incomplete sentences. Any formal questions or concerns about the content, text or information contained within the body of this dictation should be directly addressed to the provider for clarification. Medication Reconcilliation Current Medication List: was personally reviewed by me Blood Pressure Screening Patient's blood pressure: Normal blood pressure Impression Primary Impression: Vomiting and diarrhea Departure Information Dispostion Home / Self-Care Condition GOOD Prescriptions Ondasetron Odt (ZOFRAN ODT) 4 Mg Tab 4 MG SL Q6H for Nausea, #20 TAB Prov: Jona Kumari PA-C 10/07/17 Dicyclomine Hcl (BENTYL) 10 Mg Cap 10 MG PO TID for Pain, #20 CAP Prov: Joan Kumari PA-C 10/07/17 Referrals Stephon Thorne MD (PCP) Patient Instructions My [facility] Additional Instructions You were evaluated in the emergency department for vomiting and diarrhea. This is possibly a viral GI illness that will resolve on its own Stay well-hydrated with sports drinks such as Gatorade. I would stick to a clear liquid diet for 24 hours. If you are feeling better after 24 hours, you may advance the diet to a bland diet. Please take Zofran every 6 hours as needed for nausea Bentyl every 8 hours as needed for abdominal cramping please follow-up with your primary care physician in the next 2-3 days to be rechecked Return to the emergency department if you have any of the following symptoms: -Fever of 103F or greater -Persistent vomiting - Persistent diarrhea -Lethargy -Chest pain -Shortness of breath -Worsening abdominal pain
[2017-10-07 14:25] LABS: BASO % 0.3 %; BASO ABS # 0.02 K/uL (0-0.2); EOS % 2.3 %; EOS ABS # 0.16 K/uL (0-0.5); HEMATOCRIT 35.3 % (37-47); HEMOGLOBIN 11.9 g/dL (12.0-16.0); IG# 0.01 K/uL (0.00-0.02); LYMPH % 42.4 %; LYMPH ABS # 2.93 K/uL (1.2-3.4); MEAN CELL VOLUME 86.5 fL (80-100); MEAN CORPUSCULAR HEMOGLOBIN 29.2 pg (25-34); MEAN CORPUSCULAR HGB CONC 33.7 g/dl (32-36); MEAN PLATELET VOLUME 8.8 fL (7.4-10.4); MONO % 8.4 %; MONO ABS # 0.58 K/uL (0.11-0.59); NEUT % 46.5 %; NEUT ABS # 3.21 K/uL (1.4-6.5); PLATELET COUNT 258 K/uL (130-400); RED CELL DISTRIBUTION WIDTH CV 12.2 % (11.5-14.5); RED CELL DISTRIBUTION WIDTH SD 38.8 fL (36.4-46.3); WHITE BLOOD COUNT 6.91 K/uL (4.8-10.8)
[2017-10-07] MEDS ORDERED: ALPR1TAB3 PO (14:34)
[2017-10-07] MEDS ORDERED: GABA-113 PO ×2 (14:34)
[2017-10-07 14:44] LABS: ALBUMIN 3.4 gm/dl (3.4-5.0); CALCIUM 8.6 mg/dl (8.5-10.1); CREATININE 1.01 mg/dl (0.60-1.20); POTASSIUM 3.8 mmol/L (3.5-5.1)
--- NOTE | 2017-10-07 14:55 | DIAGNOSTIC IMAGING REPORT ---
ABDOMEN 2VIEW W/PA CHEST RTN CLINICAL HISTORY: 22 years-old Female presenting with Persistent vomiting. TECHNIQUE: PA view of the chest and supine and upright views of the abdomen were obtained. COMPARISON: Chest x-ray from 06/03/[address] of the abdomen and pelvis from 04/04/2017. FINDINGS: Cardiomediastinal silhouette normal. Lungs and pleural spaces clear. Nonobstructive bowel gas pattern. No gross pneumoperitoneum. Allowing for bowel gas and stool, no calcifications to suggest nephrolithiasis. Osseous structures normal. IMPRESSION: 1. No acute cardiopulmonary disease. 2. No radiographic evidence of acute intra-abdominal pathology. Electronically signed by: Lazarus Mejia M.D. 10/07/2017 2:53 PM Dictated Date/Time: 10/07/2017 2:52 PM
[2017-10-07] MEDS ORDERED: ONDA4TAB10 SL (16:45)
[2017-10-07] MEDS ORDERED: DICY10CA55 PO (16:45)
[2017-10-07 17:01] VITALS: BP 98/64; PULSE 73; O2SAT 97
== END 2017-10-07 16:55 | disposition home or self-care (01) ==
LOC: C.EDB 13:20
DX: R11.10 Vomiting, unspecified (principal); R19.7 Diarrhea, unspecified; J45.909 Unspecified asthma, uncomplicated; M41.9 Scoliosis, unspecified

== ENCOUNTER 2017-11-01 17:35 | Emergency (ER) | payer OTHER ==
[~2017-11-01] VITALS: Ht 160 cm; Wt 82.0 kg
[~2017-11-01 17:35] MED LIST changes: +ALPR1TAB3 PO; +GABA-113 PO; +ONDA4TAB10 SL
[2017-11-01 17:41] VITALS: TEMP 36.9; Ht 160 cm; Wt 82.0 kg
[2017-11-01] MEDS ORDERED: CLON1TAB3 PO (18:01)
--- NOTE | 2017-11-01 19:36 | EMERGENCY ROOM VISIT NOTE ---
History First contact with patient: 17:47 Chief Complaint: FALL Stated Complaint: FALL HIT HEAD WELL BACK INJURED History of Present Illness The patient is a 22 year old female who presents to the Emergency Room with complaints of a fall. The patient reports that she fell in the bathroom just prior to arrival. She reports that she had just gotten out of the shower and was drying off her hair. She states that she flipped her head back and hit the wall. She then caught her foot on the ground and fell, landing onto her back. She reports pain in the back of her head and her back. She did not lose consciousness, although did feel slightly dizzy afterward. She was slightly disoriented at first but states this has been improving. She has been nauseous but has not vomited. She reports that she has pain in her low back which is worse with any movement of the back. She does report a history of back issues in the past. She rates her overall discomfort an 8.5/10. She reports it as a throbbing pain. She denies any numbness, weakness, slurred speech or significant confusion. Review of Systems A complete 10 point review of systems was reviewed with the patient with pertinent positives and negatives as per history of present illness. All else were negative. Past Medical/Surgical History Medical Problems: (1) Asthma (2) Bulging disc (3) Scoliosis Social History Smoking Status: Never Smoker Alcohol Use: none Drug Use: none Marital Status: single Housing Status: lives with family Occupation Status: student Current/Historical Medications Scheduled Control Pills ( Control Pills), 1 TAB PO QAM Clonazepam (Klonopin), 1 MG PO TID Gabapentin (Neurontin), 300 MG PO QAM Gabapentin (Neurontin), 600 MG PO QPM Ondasetron Odt (Zofran Odt), 4 MG SL Q6H Quetiapine Fumarate (Seroquel), 200 MG PO HS Venlafaxine Hcl (Venlafaxine Hcl Er), 225 MG PO QAM Scheduled PRN Albuterol Hfa (Ventolin Hfa), 2 PUFFS INH QID PRN for SOB/Wheezing Alprazolam (Xanax), 1 MG PO TID PRN for Anxiety/Agitation Hydrocodone/Acetaminophen 5MG/325MG ([place] 5MG/325MG), 1-2 TABLET PO Q4H PRN for Pain Physical Exam Vital Signs Date Time Temp Pulse Resp B/P (MAP) Pulse Ox O2 Delivery O2 Flow Rate FiO2 11/01/17 21:09 84 16 112/68 100 11/01/17 19:38 94 16 103/64 100 Room Air 11/01/17 17:41 36.9 91 18 95/57 98 Room Air Physical Exam VITALS: Vitals are noted on the nurse's note and reviewed by myself. Vital signs stable. GENERAL: This is a 22-year-old female, in no acute distress, nondiaphoretic, well-developed well-nourished. SKIN: The skin was without rashes, erythema, edema, or bruising. HEAD: Normocephalic atraumatic. EARS: External auditory canals clear, tympanic membranes pearly dorsey without erythema or effusion bilaterally. No hemotympanum. EYES: Pupils equal round and reactive to light and accommodation. Extraocular movements intact. NECK: Supple without nuchal rigidity. Cervical spine is nontender. HEART: Regular rate and rhythm without murmurs gallops or rubs. LUNGS: Clear to auscultation bilaterally without wheezes, rales or rhonchi. MUSCULOSKELETAL: There is vague tenderness to the lumbar spinous region and bilateral lumbar paraspinous muscles. Full range of motion of bilateral lower extremities. Strength 5/5 in bilateral lower extremities. NEURO: Patient was alert and oriented to person place and time. No focal neurological deficits. Medical Decision & Procedures ER Provider Diagnostic Interpretation: L-SPINE MIN 4 VIEWS ROUTINE HISTORY: 22 years-old Female fall, low back pain acute low back pain status post fall COMPARISON: Acute abdominal series radiographs 10/07/2017 TECHNIQUE: 5 views of the lumbar spine FINDINGS: There are only 4 nonrib-bearing lumbar type vertebral segments present. No acute fracture, subluxation or significant degenerative changes. Soft tissues are unremarkable. IMPRESSION: No acute fracture or subluxation. Medications Administered Medications (Trade) Dose Ordered Sig/Rosie Route Start Time Stop Time Status Last Admin Dose Admin Acetaminophen/ Hydrocodone Bitart ([place] 5/325mg Home Pack) 1 homepack UD ONCE PO 11/01/17 20:30 11/01/17 20:31 DC 11/01/17 20:55 1 HOMEPACK Medical Decision Differential diagnosis includes fracture, contusion, sprain, among others. The patient was evaluated as above. X-ray of the lumbar spine was obtained and reviewed by radiology without any fractures. She did sustain a head injury but has nothing to suggest a severe head injury or necessitate CT scanning at this time. Patient did request something for pain and was given a home pack and very small amount of [place]. She was instructed that she must follow-up with her PCP for further evaluation of this. She verbalized understanding of my assessment and treatment plan and was discharged home in good condition. Medication Reconcilliation Current Medication List: was personally reviewed by me Blood Pressure Screening Patient's blood pressure: Normal blood pressure Impression Primary Impression: Fall Additional Impression: Lumbar back pain Departure Information Dispostion Home / Self-Care Condition GOOD Prescriptions Hydrocodone/Acetaminophen 5MG/325MG ([place] 5MG/325MG) Tab 1-2 TABLET PO Q4H Y for Pain, #8 TAB For Initial Treatment Prov: Florence Cornell .DAMON 11/01/17 Referrals Juan Quintana M.D. (PCP) Patient Instructions [facility] Additional Instructions You have been treated in the Emergency Department for a Closed Head Injury and back injury. You have been prescribed [place] to be used for pain control. This is a narcotic medication. You cannot drive or consume alcohol while on this medicine. This medicine should only be used for pain that cannot be controlled with over-the- counter pain medicines. For pain control, you can use the following [id number] medicines (if >12 yo): - Regular strength (325mg/tab) Tylenol (acetaminophen) 2 tabs every 4-6 hours as needed. Do not exceed 12 tablets in a 24 hour period. Avoid taking more than 4 grams (4000 mg) of Tylenol per day. This includes any other sources of acetaminophen you may take on a regular basis. - Regular strength (200 mg/tab) Advil (ibuprofen) 1-2 tabs every 4-6 hours as needed. Do not exceed a dose of 3200 mg per day. You should relax in a quiet, dark place for the rest of the day. Avoid any possible triggers including: cigarette smoke, caffeine, nicotine, chocolate, wine, beer, loud noises or music, or bright lights. You should schedule a follow-up appointment in 2-3 days with your Primary Care Provider for further evaluation and treatment. Return to the Emergency Department if your current symptoms worsen despite treatment course outlined above, or if you develop any of the following symptoms : intractable pain despite aforementioned treatment course, visual disturbances , loss of vision, unilateral weakness or facial drooping, slurring of speech, loss of coordination, or loss of consciousness. Problem Qualifiers Primary Impression: Fall Encounter type: initial encounter Qualified Codes: W19.XXXA - Unspecified fall, initial encounter
--- NOTE | 2017-11-01 20:03 | DIAGNOSTIC IMAGING REPORT ---
L-SPINE MIN 4 VIEWS ROUTINE HISTORY: 22 years-old Female fall, low back pain acute low back pain status post fall COMPARISON: Acute abdominal series radiographs 10/07/2017 TECHNIQUE: 5 views of the lumbar spine FINDINGS: There are only 4 nonrib-bearing lumbar type vertebral segments present. No acute fracture, subluxation or significant degenerative changes. Soft tissues are unremarkable. IMPRESSION: No acute fracture or subluxation. The above report was generated using voice recognition software. It may contain grammatical, syntax or spelling errors. Electronically signed by: Juan Ramon Silverman M.D. 11/01/2017 8:02 PM Dictated Date/Time: 11/01/2017 8:01 PM
[2017-11-01] MEDS ORDERED: HYDR-5688 PO (20:25)
[2017-11-01] MEDS ORDERED: NORCO 5/325MG HOME PACK PO ONE (20:30)
[2017-11-01 21:09] VITALS: BP 112/68; PULSE 84; O2SAT 100
== END 2017-11-01 21:00 | disposition home or self-care (01) ==
LOC: C.EDB 17:36 → C.EDD 21:00
DX: M54.5 Low back pain (principal); W01.0XXA Fall on same level from slipping, tripping and stumbling without subsequent striking against object, initial encounter; S09.90XA Unspecified injury of head, initial encounter; W22.8XXA Striking against or struck by other objects, initial encounter; Y92.002 Bathroom of unspecified non-institutional (private) residence as the place of occurrence of the external cause; J45.909 Unspecified asthma, uncomplicated; M41.9 Scoliosis, unspecified; Z79.3 Long term (current) use of hormonal contraceptives; Z79.899 Other long term (current) drug therapy

== ENCOUNTER 2017-11-12 18:46 | Emergency (ER) | payer OTHER ==
[~2017-11-12] VITALS: Ht 160 cm; Wt 75.0 kg
[~2017-11-12 18:46] MED LIST changes: +CLON1TAB3 PO; +HYDR-5688 PO
[2017-11-12 18:58] VITALS: Ht 160 cm; Wt 75.0 kg
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
--- NOTE | 2017-11-12 20:12 | DIAGNOSTIC IMAGING REPORT ---
HEAD WITHOUT CONTRAST (CT) CLINICAL HISTORY: 22 years-old Female with Seizure like activity. Acute seizure like activity TECHNIQUE: Multiple axial CT images of the head were obtained without contrast. A dose lowering technique was utilized adhering to the principles of ALARA. CT DOSE: 614.27 mGy.cm COMPARISON: Brain MRI 09/18/2017. FINDINGS: No acute intracranial hemorrhage, midline shift, intracranial mass, hydrocephalus, territorial ischemia or abnormal extra-axial collection. The calvarium is intact. The paranasal sinuses, mastoid air cells, and middle ear cavities are clear. IMPRESSION: No acute intracranial abnormality. The above report was generated using voice recognition software. It may contain grammatical, syntax or spelling errors. Electronically signed by: Juan Ramon Silverman M.D. 11/12/2017 8:10 PM Dictated Date/Time: 11/12/2017 8:08 PM
[2017-11-12 20:15] LABS: HEMATOCRIT 35.6 % (37-47); HEMOGLOBIN 11.8 g/dL (12.0-16.0); MEAN CELL VOLUME 86.8 fL (80-100); MEAN CORPUSCULAR HEMOGLOBIN 28.8 pg (25-34); MEAN CORPUSCULAR HGB CONC 33.1 g/dl (32-36); MEAN PLATELET VOLUME 8.7 fL (7.4-10.4); PLATELET COUNT 269 K/uL (130-400); RED CELL DISTRIBUTION WIDTH CV 12.7 % (11.5-14.5); RED CELL DISTRIBUTION WIDTH SD 40.8 fL (36.4-46.3); WHITE BLOOD COUNT 9.18 K/uL (4.8-10.8)
[2017-11-12 20:41] LABS: ALBUMIN 3.3 gm/dl (3.4-5.0); CALCIUM 8.6 mg/dl (8.5-10.1); CREATININE 0.82 mg/dl (0.60-1.20); POTASSIUM 3.5 mmol/L (3.5-5.1); TOTAL PROTEIN 7.4 gm/dl (6.4-8.2)
[2017-11-12] MEDS ORDERED: LEVE500T13 PO (21:44)
[2017-11-12] MEDS ORDERED: LEVETIRACETAM 500 MG TAB PO ONE (21:45)
[2017-11-12 22:22] VITALS: BP 125/81; PULSE 80; TEMP 36.9; O2SAT 98
== END 2017-11-12 22:22 | disposition home or self-care (01) ==
LOC: C.EDB 18:48
DX: R56.9 Unspecified convulsions (principal); Z91.012 Allergy to eggs; Z88.1 Allergy status to other antibiotic agents; Z88.6 Allergy status to analgesic agent

== ENCOUNTER → 2018-01-09 | Outpatient (CLI) | payer OTHER ==
[~2018-01-09] MED LIST changes: -ALPR1TAB3 PO; +CHOL1CAP57 PO; -CLON1TAB3 PO; +CLON1TAB5 PO; -GABA-113 PO; -HYDR-5688 PO; -ONDA4TAB10 SL; +RIZA10TA18 PO; +TOPI25TA99 PO
== END | disposition home or self-care (01) ==
LOC: C.LAB1850 15:19
PROVIDERS: ATTEND Family Medicine
DX: D50.9 Iron deficiency anemia, unspecified (principal); R19.7 Diarrhea, unspecified

== ENCOUNTER → 2018-01-15 | Outpatient (CLI) | payer OTHER | END | disposition home or self-care (01) | LOC: C.LAB1850 13:46 | PROVIDERS: ATTEND Physician Assistant | DX: E03.9 Hypothyroidism, unspecified (principal) ==

== ENCOUNTER 2018-01-27 22:46 | Emergency (ER) | payer OTHER ==
[~2018-01-27] VITALS: Ht 160 cm; Wt 84.4 kg
[2018-01-27 22:50] VITALS: TEMP 36.7; Ht 160 cm; Wt 84.4 kg
[2018-01-27] MEDS ORDERED: prednisoLONE SYRUP 15 MG/5 ML UDP PO ONE (23:00)
[2018-01-27] MEDS ORDERED: PRED1SOL12 PO (23:05)
[2018-01-27 23:15] VITALS: BP 123/87; PULSE 96; O2SAT 97
--- NOTE | 2018-01-28 05:38 | EMERGENCY ROOM VISIT NOTE ---
History First contact with patient: 22:55 Chief Complaint: ALLERGIC REACTION Stated Complaint: ALLERGIC REATION TO PAIN MED Nursing Triage Summary: Pt reports that she is having an allergic reaction to pain medication. Pt had tonsillectomy on Sunday. Pt was given hydrocodone. Pt reports her face is covered in red bumps and is now starting on her arms. History of Present Illness The patient is a 22 year old female who presents to the Emergency Room with complaints of possible allergic reaction. The patient had tonsillectomy performed at this facility about 1 week ago. She has some mild persistent pain but no fever or chills. She states that she took liquid Vicodin over the past 2 or 3 days, and noticed a fine rash on her face and upper arms. The patient is not having chest pain, chest tightness, or shortness of breath. No abdominal pain. The patient was initially on some steroids postoperatively, but noted that her symptoms began shortly after stopping this. She rates her current discomfort a 1/10. Review of Systems More than 10 systems were reviewed and otherwise negative with the exception of history of present illness. Past Medical/Surgical History Medical Problems: (1) Asthma (2) Bulging disc (3) Scoliosis Family History No pertinent family history Social History Smoking Status: Never Smoker Alcohol Use: none Drug Use: none Marital Status: single Housing Status: lives with family Occupation Status: student Current/Historical Medications Scheduled Control Pills ( Control Pills), 1 TAB PO QAM Cholecalciferol (Vitamin D3), 3 CAP PO DAILY Clonazepam (Klonopin), 1 MG PO BID Prednisolone (Prelone 15MG/5ML), 10 ML PO DAILY Quetiapine Fumarate (Seroquel), 400 MG PO HS Topiramate (Topamax ), 25 MG PO BID Venlafaxine Hcl (Venlafaxine Hcl Er), 150 MG PO QAM Scheduled PRN Albuterol Hfa (Ventolin Hfa), 2 PUFFS INH QID PRN for SOB/Wheezing Rizatriptan Benzoate (Maxalt), 10 MG PO DAILY PRN for Migraine Physical Exam Vital Signs Date Time Temp Pulse Resp B/P (MAP) Pulse Ox O2 Delivery O2 Flow Rate FiO2 01/27/18 23:15 96 20 123/87 97 01/27/18 22:55 Room Air 01/27/18 22:50 36.7 126 20 107/66 95 Room Air Physical Exam VITALS: Vitals are noted on the nurse's note and reviewed by myself. Vital signs stable. GENERAL: Well-developed, well-nourished, white female, who is in no acute distress and resting comfortably. Patient is cooperative with the examination. HEAD: Normocephalic atraumatic. MOUTH: Mucous membranes moist. Tonsils are surgically absent. Peritonsillar space appears to be well healing without abscess or evidence of infection. No blood or bleeding. Uvula is midline. NECK: Supple without nuchal rigidity. No lymphadenopathy. No thyromegaly. Cervical spine is nontender. HEART: Regular rate and rhythm without murmurs gallops or rubs. LUNGS: Clear to auscultation bilaterally without wheezes, rales or rhonchi. No retractions or accessory muscle use. ABDOMEN: Positive normal bowel sounds x 4. Soft, nontender, without masses or organomegaly. No guarding or rebound tenderness. SKIN: The skin was with a fine maculopapular rash best appreciated on the forehead and cheeks. There are similar findings on the upper arms. No distinct urticaria or pustules. Medical Decision & Procedures Medications Administered Medications (Trade) Dose Ordered Sig/Rosie Route Start Time Stop Time Status Last Admin Dose Admin Prednisolone (Prelone Syrup) 45 mg NOW ONCE PO 01/27/18 23:00 01/27/18 23:02 DC 01/27/18 23:04 45 MG ED Course Physical exam and history were performed. Nursing notes, EMR, and Medication List were personally reviewed. Patient appears to have developed a small rash on her face and arms over the past few days. The patient does not appear to be in anaphylaxis, and I am unsure if her rash represents a true allergic reaction. I did provide the patient Prelone here in the department, and this did seem to help her symptoms. Overall she is well for discharge home. I will give her a short continuation course of the steroids. The patient does have an appointment in 2 days with her ENT, and she will keep this appointment. She was otherwise invited back to the ER with any new, worsening, or concerning symptoms. The chart was completed utilizing [employer] Voice Recognition Software. Grammatical errors, random word insertions, pronoun errors, and incomplete sentences are an occasional consequence of this system due to software limitations, ambient noise, and hardware issues. Any formal questions or concerns about the content, text, or information contained within the body of this dictation should be directly addressed to the provider for clarification. . Medical Decision Differential diagnosis: Etiologies such as contact dermatitis, viral exanthem, urticaria, allergic reaction, Kimball-Manav syndrome, toxic epidermal necrolysis, erythema multiforme, cellulitis, scabies, HSV, varicella, zoster, eczema, staph scalded skin syndrome, fungal infection, as well as others were entertained. Impression Primary Impression: Rash and nonspecific skin eruption Departure Information Dispostion Home / Self-Care Condition GOOD Prescriptions Prednisolone (PRELONE 15MG/5ML) 15 Mg/5 Ml Syrp 10 ML PO DAILY for 3 Days, #30 ML Prov: Salazar Tello PA-C 01/27/18 Forms HOME CARE DOCUMENTATION FORM, IMPORTANT VISIT INFORMATION Patient Instructions My [facility] Additional Instructions You were seen and evaluated today on an emergency basis only. This is not a substitute for, or an effort to provide, complete comprehensive medical care. It is not possible to recognize and treat all injuries or illnesses in a single emergency department visit. For this reason it is recommended that you followup with your surgeon as scheduled on Sunday for ongoing care and evaluation. Take prednisone 30 mg daily for the next 3 days. You are welcome to return to the emergency department anytime with new, worsening, or concerning symptoms.
== END 2018-01-27 23:15 | disposition home or self-care (01) ==
LOC: C.EDB 22:47
DX: R21 Rash and other nonspecific skin eruption (principal); J45.909 Unspecified asthma, uncomplicated; M41.9 Scoliosis, unspecified

== ENCOUNTER 2018-02-01 22:41 | Emergency (ER) | payer OTHER ==
[~2018-02-01] VITALS: Ht 160 cm; Wt 86.0 kg
[~2018-02-01 22:41] MED LIST changes: +CLON1TAB10 PO; -CLON1TAB5 PO
[2018-02-01 22:44] VITALS: TEMP 37.1; Ht 160 cm; Wt 86.0 kg
[2018-02-01] MEDS ORDERED: SODIUM CHLORIDE 0.9% 1000ML 1,000 ML IV STA (23:07)
[2018-02-01] MEDS ORDERED: LORAZEPAM 2 MG/ML 1 ML VIAL IV STA (23:07)
[2018-02-01] MEDS ORDERED: DiphenhydrAMINE HCL 50 MG/ML VIAL IV STA (23:07)
--- NOTE | 2018-02-01 23:26 | EMERGENCY ROOM VISIT NOTE ---
History Report prepared by Daniela: Abebe Bowers Under the Supervision of: Dr. Tha Juarez M.D. First contact with patient: 22:57 Chief Complaint: SHORTNESS OF BREATH Stated Complaint: SOB, DIZZY, SORE THROAT FROM TONSILLECTOMY, HIVES History of Present Illness The patient is a 22 year old female who presents to the Emergency Room with complaints of constant hives on her face, arms, and shoulders that began 2 weeks ago after having a tonsillectomy. Patient describes the hives as "tight" and itchy. She states following the surgery she was started on Hydrocodone. She states after the hives appeared she was then started on oxycodone instead. She states the hives did not resolve with the change in medication and that her last dose of oxycodone was today. Patient was in the ER 5 days ago for similar symptoms. She states she was discharged on a 5-day course of steroids which did not resolve her hives. Patient states she is allergic to Benadryl and gets "hyper and heart racing" when she takes it. She adds she has used hydrocortisone cream on her hives which has also not resolved them. Past medical history includes asthma. Patient states she has felt more SOB the past 2 weeks and admits to not using her inhaler. Patient adds she has leg swelling but states it is chronic. She states she has a muscle biopsy scheduled soon. Patient states her tonsillectomy was performed by Dr. Fitzpatrick. She adds she is still experiencing throat pain from the surgery. Patient states she has had a fever recently but denies taking her temperature. Patient denies diarrhea, urinary symptoms, and a history of blood clots. Source of History: patient Onset: 2 weeks ago Position: head, shoulder (bilateral), arm (bilateral) Quality: other ("tight" / itchy) Timing: constant Modifying Factors (Relieving): other (None) Associated Symptoms: + fevers, + sorethroat, + SOB, No diarrhea, No urinary symptoms Review of Systems See HPI for pertinent positives & negatives. A total of 10 systems reviewed and were otherwise negative. Past Medical & Surgical Medical Problems: (1) Asthma (2) Bulging disc (3) Scoliosis Family History Diabetes mellitus Social History Smoking Status: Never Smoker Alcohol Use: none Drug Use: none Marital Status: single Housing Status: lives with family Occupation Status: student Current/Historical Medications Scheduled Control Pills ( Control Pills), 1 TAB PO QAM Cholecalciferol (Vitamin D3), 3 CAP PO DAILY Clonazepam (Klonopin), 1 MG PO BID Prednisone (Prednisone), 0 PO DAILY Quetiapine Fumarate (Seroquel), 400 MG PO HS Topiramate (Topamax ), 25 MG PO BID Venlafaxine Hcl (Venlafaxine Hcl Er), 150 MG PO QAM Scheduled PRN Albuterol Hfa (Ventolin Hfa), 2 PUFFS INH QID PRN for SOB/Wheezing Rizatriptan Benzoate (Maxalt), 10 MG PO DAILY PRN for Migraine Allergies Coded Allergies: Egg (Verified Allergy, Mild, NAUSEA, 02/01/18) Penicillins (Verified Allergy, Mild, ., 02/01/18) upset stomach Amoxicillin (Verified Allergy, Unknown, UPSET STOMACH, 02/01/18) Azithromycin (Verified Adverse Reaction, Mild, diarrhea, 02/01/18) Diphenhydramine (Verified Adverse Reaction, Mild, HYPERACTIVE, 01/18/18) Physical Exam Vital Signs Date Time Temp Pulse Resp B/P (MAP) Pulse Ox O2 Delivery O2 Flow Rate FiO2 02/02/18 00:40 89 20 135/89 97 02/01/18 22:44 37.1 105 20 135/89 96 Room Air Physical Exam GENERAL: Patient is anxious appearing and in minimal distress. EYES: No scleral icterus, unremarkable pupils. ENT: White scabs over tonsillary beds, mucous membranes moist, no nasal congestion. NECK: No masses appreciated, no meningismus, trachea is midline. RESPIRATORY: No dyspnea. Clear to auscultation and equal bilaterally. No wheeze , no rhonchi. CARDIOVASCULAR: Heart rate of 90 with a regular rate and rhythm. No murmurs, rubs, gallops appreciated. GASTROINTESTINAL: Abdomen soft, nontender, no peritonitis. Bowel sounds positive. No masses appreciated. BACK: No midline tenderness, no CVA tenderness EXTREMITIES: Normal motion all extremities, no cyanosis, no edema. NEUROLOGIC: Alert and oriented, no acute motor or sensory deficits, no focal weakness, cranial nerves grossly intact. SKIN: Small palpable rash across face, shoulders, and upper arms, dry skin, no cellulitis, no jaundice, no diaphoresis. Medical Decision & Procedures Laboratory Results 02/01/18 23:28 Red Blood Count 4.20, Mean Corpuscular Volume 89.8, Mean Corpuscular Hemoglobin 28.8, Mean Corpuscular Hemoglobin Concent 32.1, Mean Platelet Volume 8.7, Neutrophils (%) (Auto) 42.5, Lymphocytes (%) (Auto) 42.4, Monocytes (%) (Auto) 11.5, Eosinophils (%) (Auto) 1.2, Basophils (%) (Auto) 0.2, Neutrophils # (Auto ) 6.63, Lymphocytes # (Auto) 6.61, Monocytes # (Auto) 1.79, Eosinophils # (Auto ) 0.18, Basophils # (Auto) 0.03 02/01/18 23:28 Test 02/01/18 23:28 White Blood Count 15.58 K/uL (4.8-10.8) Red Blood Count 4.20 M/uL (4.2-5.4) Hemoglobin 12.1 g/dL (12.0-16.0) Hematocrit 37.7 % (37-47) Mean Corpuscular Volume 89.8 fL (80-100) Mean Corpuscular Hemoglobin 28.8 pg (25-34) Mean Corpuscular Hemoglobin Concent 32.1 g/dl (32-36) Platelet Count 252 K/uL (130-400) Mean Platelet Volume 8.7 fL (7.4-10.4) Neutrophils (%) (Auto) 42.5 % Lymphocytes (%) (Auto) 42.4 % Monocytes (%) (Auto) 11.5 % Eosinophils (%) (Auto) 1.2 % Basophils (%) (Auto) 0.2 % Neutrophils # (Auto) 6.63 K/uL (1.4-6.5) Lymphocytes # (Auto) 6.61 K/uL (1.2-3.4) Monocytes # (Auto) 1.79 K/uL (0.11-0.59) Eosinophils # (Auto) 0.18 K/uL (0-0.5) Basophils # (Auto) 0.03 K/uL (0-0.2) RDW Standard Deviation 43.9 fL (36.4-46.3) RDW Coefficient of Variation 13.5 % (11.5-14.5) Immature Granulocyte % (Auto) 2.2 % Immature Granulocyte # (Auto) 0.34 K/uL (0.00-0.02) Anion Gap 8.0 mmol/L (3-11) Est Creatinine Clear Calc Drug Dose 117.6 ml/min Estimated GFR () 125.1 Estimated GFR (Non- 107.9 BUN/Creatinine Ratio 16.0 (10-20) Calcium Level 8.0 mg/dl (8.5-10.1) Laboratory results as reviewed by me. Medications Administered Medications (Trade) Dose Ordered Sig/Rosie Route Start Time Stop Time Status Last Admin Dose Admin Sodium Chloride 1,000 ml @ 999 mls/hr Q1H1M STAT IV 02/01/18 23:07 02/02/18 00:07 DC 02/01/18 23:29 999 MLS/HR Diphenhydramine HCl (Benadryl Inj) 50 mg NOW STAT IV 02/01/18 23:07 02/01/18 23:09 DC 02/01/18 23:29 50 MG Lorazepam (Ativan Inj) 1 mg NOW STAT IV 02/01/18 23:07 02/01/18 23:09 DC 02/01/18 23:29 1 MG Dexamethasone Sodium Phosphate (Decadron Inj) 10 mg STK-MED ONCE .ROUTE 02/02/18 00:30 02/02/18 00:32 DC 02/02/18 00:30 10 MG ED Course 2301: The patient was evaluated in room A12B. A complete history and physical exam was performed. 2330: I reevaluated the patient. She states she is feeling better. Discussed results and discharge instructions. She verbalized understanding and agreement. The patient is ready for discharge. Medical Decision Differential: Contact Dermatitis, Viral Exanthum, Urticaria, Allergic Reaction, SJS, Toxic Epidermal Necrolysis, Erythema Multiforme, Cellulitis, Scabies, HSV, Varicella, Zoster, Eczema, Staph Scalded Skin, Fungal, amongst other pathologies entertained. 22 yr old female with essentially positive review of symptoms who it appears her main concern is continued rash on face. May just be this is narcotic related and since she continues taking narcotics for her throat surgery 2 weeks ago she is still reacting. May also be due to fact she has been putting hydrocortisone all over her face and she may just be having dermatitis from that. WBC is mildly elevated which is likely secondary to pred use. She has no fever, clear lungs and no UTI symptoms. She Noted SHOB but this is with all of her other symptoms and by exam she is in no way SHOB, has resolution of tachycardia on my evaluation, no hypoxia and looks quite well. I do not fee she has PE and I do not feel that CT PE is indicated (hold off on Dimer as likely positive from inflammation from recent surgery). She is not anaphylactic. Will try another round steroids with strict instructions to stop hydrocortisone to face. She will return if worsening symptoms or other concerns. Clearly she is much calmer and comfortable with some IV benadryl and ativan which she tolerated well. Medication Reconcilliation Current Medication List: was personally reviewed by me Blood Pressure Screening Patient's blood pressure: Elevated blood pressure Blood pressure disposition: Elevated BP felt to be situational Impression Primary Impression: Facial rash Scribe Attestation The scribe's documentation has been prepared under my direction and personally reviewed by me in its entirety. I confirm that the note above accurately reflects all work, treatment, procedures, and medical decision making performed by me. Departure Information Dispostion Home / Self-Care Prescriptions Prednisone (Prednisone) 20 Mg Tab 0 PO DAILY, #15 TAB 3 TABS DAILY FOR 2 DAYS, THEN 2 TABS DAILY FOR 3 DAYS, THEN 1 TAB DAILY FOR 3 DAYS. Prov: Tha Juarez M.D. 02/02/18 Referrals Juan Quintana M.D. (PCP) Patient Instructions My [facility] Additional Instructions It is important you stop taking all narcotics. Return if worsening rash or if you develop a fever. Call 911 if chest pain, shortness of breath, passing out or other concerns. We are always here to help. Follow up with your primary care provider in the next few days for recheck. Using Pepcid or Zantac may further help with rash and also help avoid heart burn /ulcers from Prednisone.
[2018-02-01 23:38] LABS: HEMATOCRIT 37.7 % (37-47); HEMOGLOBIN 12.1 g/dL (12.0-16.0); MEAN CELL VOLUME 89.8 fL (80-100); MEAN CORPUSCULAR HEMOGLOBIN 28.8 pg (25-34); MEAN CORPUSCULAR HGB CONC 32.1 g/dl (32-36); MEAN PLATELET VOLUME 8.7 fL (7.4-10.4); PLATELET COUNT 252 K/uL (130-400); RED CELL DISTRIBUTION WIDTH CV 13.5 % (11.5-14.5); RED CELL DISTRIBUTION WIDTH SD 43.9 fL (36.4-46.3); WHITE BLOOD COUNT 15.58 K/uL (4.8-10.8)
[2018-02-02 00:08] LABS: CREATININE 0.78 mg/dl (0.60-1.20); POTASSIUM 4.2 mmol/L (3.5-5.1)
[2018-02-02 00:13] LABS: BASO % 0.2 %; BASO ABS # 0.03 K/uL (0-0.2); EOS % 1.2 %; EOS ABS # 0.18 K/uL (0-0.5); IG# 0.34 K/uL (0.00-0.02); LYMPH % 42.4 %; LYMPH ABS # 6.61 K/uL (1.2-3.4); MONO % 11.5 %; MONO ABS # 1.79 K/uL (0.11-0.59); NEUT % 42.5 %; NEUT ABS # 6.63 K/uL (1.4-6.5)
[2018-02-02] MEDS ORDERED: PRED20TA PO (00:26)
[2018-02-02] MEDS ORDERED: DEXAMETHASONE **PF** INJ 10 MG/ML VIAL IV ONE (00:30)
[2018-02-02] MEDS ORDERED: DEXAMETHASONE SOD INJ 10 MG/ML VIAL ONE (00:30)
[2018-02-02 00:40] VITALS: BP 135/89; PULSE 89; O2SAT 97
== END 2018-02-02 00:41 | disposition home or self-care (01) ==
LOC: C.EDB 22:43 → C.EDA 02-02 00:41
DX: R21 Rash and other nonspecific skin eruption (principal); Z98.890 Other specified postprocedural states; Z79.3 Long term (current) use of hormonal contraceptives; Z91.012 Allergy to eggs; Z88.0 Allergy status to penicillin; Z88.1 Allergy status to other antibiotic agents; Z88.6 Allergy status to analgesic agent

== ENCOUNTER → 2018-02-05 | Outpatient (CLI) | payer OTHER ==
[~2018-02-05] MED LIST changes: +PRED20TA PO
== END | disposition home or self-care (01) ==
LOC: C.LABBFT 13:44
PROVIDERS: ATTEND Family Medicine
DX: R78.79 Finding of abnormal level of heavy metals in blood (principal)

== ENCOUNTER 2018-11-18 16:06 | Inpatient (IN) ==
[2018-11-18 16:56] LABS: Basophils # (auto) 0.03 K/uL (0-0.2); Basophils % (auto) 0.3 %; Eosinophils # (auto) 0.12 K/uL (0-0.5); Eosinophils % (auto) 1.1 %; Hematocrit (blood only) 39.3 % (37-47); Hemoglobin 13.4 g/dL (12.0-16.0); Immature Granulocytes # (auto) 0.03 K/uL (0.00-0.02); Immature Granulocytes % (auto) 0.3 %; Lymphocytes # (auto) 2.94 K/uL (1.2-3.4); Lymphocytes % (auto) 27.1 %; Mean Corpuscular Hgb Conc 34.1 g/dL (32-36); Mean Corpuscular Volume 86.4 fL (80-100); Mean Platelet Volume 8.8 fL (7.4-10.4); Monocytes # (auto) 1.07 K/uL (0.11-0.59); Monocytes % (auto) 9.9 %; Neutrophils # (auto) 6.66 K/uL (1.4-6.5); Neutrophils % (auto) 61.3 %; Platelet Count 335 K/uL (130-400); RDW Coefficient of Variation 12.8 % (11.5-14.5); RDW Standard Deviation 40.7 fL (36.4-46.3); Red Blood Count 4.55 M/uL (4.2-5.4); White Blood Count 10.85 K/uL (4.8-10.8)
[2018-11-18 17:18] LABS: Albumin Level 3.8 gm/dl (3.4-5.0); Calcium 9.1 mg/dl (8.5-10.1); Creatinine Clr Calc Pharmacy 95.2 ml/min; Est GFR (African American) 100.4; Est GFR (Non-African American) 86.6; Potassium 3.7 mmol/L (3.5-5.1)
[2018-11-18 17:26] LABS: Acetaminophen < 2 ug/ml (10-30); Salicylate < 1.7 mg/dl (2.8-20)
[2018-11-18 17:29] LABS: Bilirubin,Total 0.3 mg/dl (0.2-1); Globulin 3.9 gm/dl (2.5-4.0); Total Protein 7.7 gm/dl (6.4-8.2)
[2018-11-18 17:30] LABS: Appearance Urine Clear (Clear); Bilirubin Urine Negative (Negative); Blood Urine Trace (Negative); Color Urine Yellow; Glucose Urine UA Negative (Negative); Ketones Urine Negative (Negative); Leukocyte Esterase Urine 1+ (Negative); Nitrite Urine Negative (Negative); Protein Urine Trace (Negative); Specific Gravity Urine >= 1.030 (1.000-1.030); Urobilinogen Urine Negative (Negative)
[2018-11-18 17:38] LABS: Epithelial Cell Urine >30 /lpf (0-5)
[2018-11-18 17:39] LABS: RBC Urine 0-4 /hpf (0-4)
[2018-11-18 17:41] LABS: Bacteria Urine 1+ (Negative)
[2018-11-18 17:53] LABS: Amphetamines+Metham, Urine Neg (Neg); Barbiturates, Urine Neg (Neg); Benzodiazepine, Urine Neg (Neg); Cocaine, Urine Neg (Neg); MDMA (Ecstacy), Urine Neg (Neg); Methadone, Urine Neg (Neg); Opiate, Urine Neg (Neg); Phencyclidine, Urine Neg (Neg)
--- NOTE | 2018-11-18 18:03 | Emergency Department Note ---
Entered by Aislinn Brown acting as a scribe for Vipin Charles DO History of Present Illness General Chief complaint: Mental Health Evaluation Stated complaint: CUTTING HERSELF Source: patient Limitations: no limitations History of Present Illness Provider complaint: mental health evaluation Onset (ago): month(s) 1 Location: head Associated symptoms: + denies other symptoms (-HI), + loss of appetite and + other (+decreased fluids, +cutting herself) Treatments prior to arrival: none The patient is a 23 year old female who presents to the Emergency Room for a mental health evaluation. The patient states that she has been feeling overwhelmed and stressed about life in general for 1 month. The patient states that she is not where she wants to be in life. The patient states that she has a loss of appetite, decreased fluid intake, cutting herself, and SI. The patient denies having a plan for her SI and denies thoughts of SI prior to arrival. The patient states that she has cut herself before. The patient denies any thoughts of HI. The patient states that she has a history of depression, anxiety, PTSD, and panic attacks. The patient denies being on any medications currently for her disorders. The patient states that she sees a psychiatrist in [place]. Home Medications Home Medications Medication Instructions Recorded Confirmed Type albuterol sulfate [Ventolin HFA] 2 inha INH Q4H PRN #6.7 gm 07/08/18 11/18/18 Rx acetaminophen [Tylenol] 650 mg PO UD PRN 08/19/18 11/18/18 History ibuprofen 400 mg PO Q8 PRN 09/22/18 11/18/18 History ondansetron 4 mg PO Q6H PRN #12 tab 09/24/18 11/18/18 Rx Allergies Allergy/AdvReac Type Severity Reaction Status Date / Time amoxicillin Allergy Intermediate UPSET Verified 10/25/18 16:11 STOMACH egg Allergy Mild NAUSEA Verified 10/25/18 16:11 Penicillins Allergy Unknown HAPPENED Verified 10/25/18 16:11 A CHILD diphenhydramine AdvReac Intermediate HYPERACTIVE Verified 10/25/18 16:11 mivacurium AdvReac Mild diarrhea Verified 10/25/18 16:11 Past Med/Surg History Social History Preferred Language: Iraqi Communication Ability: Effective Visual Impairment: No Limitations Hearing Ability: Normal [employer] Required: No Beliefs That Will Affect Care: None marital status: Single Current Living Situation: Family Feels Safe at Home: Yes Smoking Status: Never smoker Hx Alcohol Use: No Hx Substance Use: No Review of Systems See HPI for pertinent positives & negatives. and A total of 10 systems reviewed and were otherwise negative Physical Exam Vital Signs Vital Signs - 24 hr 11/18/18 16:17 11/18/18 18:00 Temperature 37.2 C Temperature Source Oral Sepsis Recent Fever Within 48 Hours No Sepsis New/Unexplained Change in Mental Status No Sepsis Action Taken by Nursing No Action Required Pulse Rate 101 H Pulse Rate [Right Finger] 99 H Respiratory Rate 18 20 Respiratory Effort / Characteristics Non-Labored Spontaneous Non-Labored Spontaneous Respiratory Depth Normal Normal Respiratory Pattern Regular Regular Blood Pressure 136/83 Blood Pressure [Right Arm] 131/75 Blood Pressure Mean 100 Blood Pressure Mean [Right Arm] 93 Blood Pressure Position [Right Arm] Sitting Pulse Oximetry 98 98 Oxygen Delivery Method Room Air Room Air GENERAL: alert, well appearing, well nourished, non-toxic, sitting up in bed. EYE EXAM: normal conjunctiva. OROPHARYNX: no exudate, no erythema, lips, buccal mucosa, and tongue normal and mucous membranes are moist NECK: supple, no nuchal rigidity, no adenopathy, non-tender LUNGS: Clear to auscultation. Normal chest wall mechanics HEART: no murmurs, S1 normal and S2 normal ABDOMEN: abdomen soft, non-tender, normo-active bowel sounds, no masses, no rebo und or guarding. BACK: Back is symmetrical on inspection and there is no deformity, no midline tenderness, no CVA tenderness. SKIN: Multiple superficial lacerations on the palmar surface of bilateral upper arms and anterior bilateral thighs. UPPER EXTREMITIES: upper extremities are grossly normal. LOWER EXTREMITIES: No pitting edema. NEURO EXAM: Normal sensorium, cranial nerves II-XII intact, normal speech, no weakness of arms, no weakness of legs. PSYCH: Depression, lack of self worth, cutting, and thoughts of SI. Denies HI. Course 161: The patient was evaluated in room A8, and a complete history and physical examination were performed. 1800: The patient was accepted to [address] [place] [address] for inpatient treatment. The patient agrees to the treatment plan. Administered Medications Hydroxyzine HCl (Vistaril) 50 mg PO HSZ PRN PRN Reason: Insomnia Stop: 12/18/18 18:31 Last Admin: 11/18/18 21:32 Dose: 50 mg Documented by: [id number] Discontinued Medications Gabapentin (Neurontin) 1,200 mg PO TODAY@2014 [facility] Stop: 11/18/18 20:16 Last Admin: 11/18/18 21:30 Dose: 1,200 mg Documented by: [id number] Medical Decision Making Differential Diagnosis Differential diagnoses considered include mood disorder, infection, hypoglycemia, electrolyte abnormalities, cardiac sources, intracerebral event, toxicologic, neurologic, as well as others. Medical Records Attestation: I reviewed the patient's medical records. Home Medications Current Medication List: was personally reviewed by me Laboratory Data Attestation: I reviewed the patient's lab results. Result diagrams: 11/18/18 16:35 11/18/18 16:35 Lab Results 11/18/18 11/18/18 11/18/18 Range/Units 16:28 16:35 16:35 WBC 10.85 H (4.8-10.8) K/uL RBC 4.55 (4.2-5.4) M/uL Hgb 13.4 (12.0-16.0) g/dL Hct 39.3 (37-47) % MCV 86.4 (80-100) fL MCH 29.5 (25-34) pg MCHC 34.1 (32-36) g/dL RDW Std Deviation 40.7 (36.4-46.3) fL RDW Coeff of Gerardo 12.8 (11.5-14.5) % Plt Count 335 (130-400) K/uL MPV 8.8 (7.4-10.4) fL Immature Gran % (Auto) 0.3 % Neut % (Auto) 61.3 % Lymph % (Auto) 27.1 % Irwin % (Auto) 9.9 % Eos % (Auto) 1.1 % Baso % (Auto) 0.3 % Immature Gran # (Auto) 0.03 H (0.00-0.02) K/uL Neut # (Auto) 6.66 H (1.4-6.5) K/uL Lymph # (Auto) 2.94 (1.2-3.4) K/uL Irwin # (Auto) 1.07 H (0.11-0.59) K/uL Eos # (Auto) 0.12 (0-0.5) K/uL Baso # (Auto) 0.03 (0-0.2) K/uL Sodium 142 (136-145) mmol/L Potassium 3.7 (3.5-5.1) mmol/L Chloride 106 (98-107) mmol/L Carbon Dioxide 27 (21-32) mmol/L Anion Gap 9.0 (3-11) BUN 13 (7-18) mg/dl Creatinine 0.93 (0.6-1.2) mg/dl Est Cr Clr Drug Dosing 95.2 ml/min Est GFR ( Amer) 100.4 Est GFR (Non-Af Amer) 86.6 BUN/Creatinine Ratio 14.0 (10-20) Glucose 86 (70-99) mg/dl Calcium 9.1 (8.5-10.1) mg/dl Total Bilirubin 0.3 (0.2-1) mg/dl AST 22 (15-37) U/L ALT 42 (12-78) U/L Alkaline Phosphatase 79 (45-117) U/L Total Protein 7.7 (6.4-8.2) gm/dl Albumin 3.8 (3.4-5.0) gm/dl Globulin 3.9 (2.5-4.0) gm/dl Albumin/Globulin Ratio 1.0 (0.9-2) TSH 1.320 (0.300-4.500) uIu/ml Urine Color Urine Appearance (Clear) Urine pH (4.5-7.5) Ur Specific [place] (1.000-1.030) Urine Protein (Negative) Urine Glucose (UA) (Negative) Urine Ketones (Negative) Urine Blood (Negative) Urine Nitrite (Negative) Urine Bilirubin (Negative) Urine Urobilinogen (Negative) Ur Leukocyte Esterase (Negative) Urine RBC (0-4) /hpf Urine WBC (0-5) /hpf Ur Epithelial Cells (0-5) /lpf Urine Bacteria (Negative) POC Ur Test NEG (NEG) Salicylates (2.8-20) mg/dl Urine Opiates Screen (Neg) Ur Methadone, Qual (Neg) Acetaminophen (10-30) ug/ml Urine Barbiturates (Neg) Ur Phencyclidine (PCP) (Neg) U Amphetamin/Meth Scrn (Neg) MDMA (Ecstasy) Screen (Neg) U Benzodiazepines Scrn (Neg) Ur Cocaine Metabolite (Neg) U Marijuana (THC) Screen (Neg) Ethyl Alcohol mg/dL (0-3) mg/dl 11/18/18 11/18/18 11/18/18 Range/Units 16:35 16:35 17:20 WBC (4.8-10.8) K/uL RBC (4.2-5.4) M/uL Hgb (12.0-16.0) g/dL Hct (37-47) % MCV (80-100) fL MCH (25-34) pg MCHC (32-36) g/dL RDW Std Deviation (36.4-46.3) fL RDW Coeff of Gerardo (11.5-14.5) % Plt Count (130-400) K/uL MPV (7.4-10.4) fL Immature Gran % (Auto) % Neut % (Auto) % Lymph % (Auto) % Irwin % (Auto) % Eos % (Auto) % Baso % (Auto) % Immature Gran # (Auto) (0.00-0.02) K/uL Neut # (Auto) (1.4-6.5) K/uL Lymph # (Auto) (1.2-3.4) K/uL [place]win # (Auto) (0.11-0.59) K/uL Eos # (Auto) (0-0.5) K/uL Baso # (Auto) (0-0.2) K/uL Sodium (136-145) mmol/L Potassium (3.5-5.1) mmol/L Chloride (98-107) mmol/L Carbon Dioxide (21-32) mmol/L Anion Gap (3-11) BUN (7-18) mg/dl Creatinine (0.6-1.2) mg/dl Est Cr Clr Drug Dosing ml/min Est GFR ( Amer) Est GFR (Non-Af Amer) BUN/Creatinine Ratio (10-20) Glucose (70-99) mg/dl Calcium (8.5-10.1) mg/dl Total Bilirubin (0.2-1) mg/dl AST (15-37) U/L ALT (12-78) U/L Alkaline Phosphatase (45-117) U/L Total Protein (6.4-8.2) gm/dl Albumin (3.4-5.0) gm/dl Globulin (2.5-4.0) gm/dl Albumin/Globulin Ratio (0.9-2) TSH (0.300-4.500) uIu/ml Urine Color Urine Appearance (Clear) Urine pH (4.5-7.5) Ur Specific [place] (1.000-1.030) Urine Protein (Negative) Urine Glucose (UA) (Negative) Urine Ketones (Negative) Urine Blood (Negative) Urine Nitrite (Negative) Urine Bilirubin (Negative) Urine Urobilinogen (Negative) Ur Leukocyte Esterase (Negative) Urine RBC (0-4) /hpf Urine WBC (0-5) /hpf Ur Epithelial Cells (0-5) /lpf Urine Bacteria (Negative) POC Ur Test (NEG) Salicylates < 1.7 L (2.8-20) mg/dl Urine Opiates Screen Neg (Neg) Ur Methadone, Qual Neg (Neg) Acetaminophen < 2 L (10-30) ug/ml Urine Barbiturates Neg (Neg) Ur Phencyclidine (PCP) Neg (Neg) U Amphetamin/Meth Scrn Neg (Neg) MDMA (Ecstasy) Screen Neg (Neg) U Benzodiazepines Scrn Neg (Neg) Ur Cocaine Metabolite Neg (Neg) U Marijuana (THC) Screen Neg (Neg) Ethyl Alcohol mg/dL < 3.0 (0-3) mg/dl 11/18/18 Range/Units 17:20 WBC (4.8-10.8) K/uL RBC (4.2-5.4) M/uL Hgb (12.0-16.0) g/dL Hct (37-47) % MCV (80-100) fL MCH (25-34) pg MCHC (32-36) g/dL RDW Std Deviation (36.4-46.3) fL RDW Coeff of Gerardo (11.5-14.5) % Plt Count (130-400) K/uL MPV (7.4-10.4) fL Immature Gran % (Auto) % Neut % (Auto) % Lymph % (Auto) % Irwin % (Auto) % Eos % (Auto) % Baso % (Auto) % Immature Gran # (Auto) (0.00-0.02) K/uL Neut # (Auto) (1.4-6.5) K/uL Lymph # (Auto) (1.2-3.4) K/uL [place]win # (Auto) (0.11-0.59) K/uL Eos # (Auto) (0-0.5) K/uL Baso # (Auto) (0-0.2) K/uL Sodium (136-145) mmol/L Potassium (3.5-5.1) mmol/L Chloride (98-107) mmol/L Carbon Dioxide (21-32) mmol/L Anion Gap (3-11) BUN (7-18) mg/dl Creatinine (0.6-1.2) mg/dl Est Cr Clr Drug Dosing ml/min Est GFR ( Amer) Est GFR (Non-Af Amer) BUN/Creatinine Ratio (10-20) Glucose (70-99) mg/dl Calcium (8.5-10.1) mg/dl Total Bilirubin (0.2-1) mg/dl AST (15-37) U/L ALT (12-78) U/L Alkaline Phosphatase (45-117) U/L Total Protein (6.4-8.2) gm/dl Albumin (3.4-5.0) gm/dl Globulin (2.5-4.0) gm/dl Albumin/Globulin Ratio (0.9-2) TSH (0.300-4.500) uIu/ml Urine Color Yellow Urine Appearance Clear (Clear) Urine pH 6.0 (4.5-7.5) Ur Specific [place] >= 1.030 (1.000-1.030) Urine Protein Trace H (Negative) Urine Glucose (UA) Negative (Negative) Urine Ketones Negative (Negative) Urine Blood Trace H (Negative) Urine Nitrite Negative (Negative) Urine Bilirubin Negative (Negative) Urine Urobilinogen Negative (Negative) Ur Leukocyte Esterase 1+ H (Negative) Urine RBC 0-4 (0-4) /hpf Urine WBC 5-10 H (0-5) /hpf Ur Epithelial Cells >30 H (0-5) /lpf Urine Bacteria 1+ H (Negative) POC Ur Test (NEG) Salicylates (2.8-20) mg/dl Urine Opiates Screen (Neg) Ur Methadone, Qual (Neg) Acetaminophen (10-30) ug/ml Urine Barbiturates (Neg) Ur Phencyclidine (PCP) (Neg) U Amphetamin/Meth Scrn (Neg) MDMA (Ecstasy) Screen (Neg) U Benzodiazepines Scrn (Neg) Ur Cocaine Metabolite (Neg) U Marijuana (THC) Screen (Neg) Ethyl Alcohol mg/dL (0-3) mg/dl Blood Pressure Blood Pressure Findings: Normal blood pressure MDM Narrative Patient is a 23-year-old female who presents the ER for mood disorder with thoughts of self-harm. Patient notes that she is having suicidal thoughts for the past month. She cut herself tonight as she was becoming more more depressed. She notes that she feels a lack of self-worth. No other complaints at this time. Labs show no significant leukocytosis or anemia. BMP along with LFTs bilirubin TSH was unremarkable. UA was contaminated with multiple epithelial cells. Will not treat at this time. Tox was negative. Patient was accepted to [address] on a 201. Discussed with Pt concerning signs and symptoms to watch out for. Pt was instructed to follow up with their PCP and discussed with the patient their option to return to the ED at anytime for persistent or worsening symptoms. The appropriate anticipatory guidance and out-patient manage ment, including indications for return to the emergency department, were explained at length to the patient and understood. Impression & Plan Mood disorder, Suicidal ideations Discharge Plan Visit Data *Final* Discharge Date/Time: 11/18/18 19:00 Chief Complaint: Mental Health Evaluation Stated Complaint: CUTTING HERSELF ED Provider: Vipin Charles Discharge Problem: Mood disorder, Suicidal ideations Patient Disposition: Admitted As Inpatient Discharge Instructions Interventions: ED Discharge Assessment Last Done: 11/18/18 19:00 The scribe's documentation has been prepared under my direction and personally reviewed by me in its entirety. I confirm that the note above accurately reflects all work, treatment, procedures, and medical decision making performed by me.
[2018-11-18] MEDS ORDERED: BISMUTH SUBSALICYLATE PER ML OMNICELL CHARGE PO PRN (18:32)
[2018-11-18] MEDS ORDERED: SODIUM CHLORIDE 0.65% NA SOLN 45 ML (OCEAN) PRN (18:32)
[2018-11-18] MEDS ORDERED: MAGNESIUM HYDROXIDE SUSP 30 ML UDC PO PRN (18:32)
[2018-11-18] MEDS ORDERED: LORazepam 1 MG TAB PO PRN (20:10)
[2018-11-18] MEDS ORDERED: GABAPENTIN 1200MG ALCOHOL WITHDRAWAL LOAD PO STA (20:10)
[2018-11-18] MEDS ORDERED: GABAPENTIN 600 MG TAB PO SCH (20:15)
[2018-11-19] MEDS: GABAPENTIN 600 MG TAB PO SCH ×3 (02:16→17:14)
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
[2018-11-19] MEDS ORDERED: VENLAFAXINE HCL XR 37.5 MG CAPXR PO ONE (11:45)
[2018-11-19] MEDS: QUETIAPINE FUMARATE 25 MG TABLET PO PRN (13:47)
[2018-11-19] MEDS: QUETIAPINE FUMARATE 100 MG TABLET PO SCH (21:29)
[2018-11-20 08:40] LABS: Glucose Fasting 92 mg/dl (70-99)
[2018-11-20 08:47] LABS: Chol HDL Ratio 3; Cholesterol 154 mg/dl (0-200); HDL Cholesterol 55 mg/dl; LDL Cholesterol Calculated 80 mg/dl; Triglycerides 93 mg/dl (0-150); VLDL Cholesterol 19 mg/dl
[2018-11-20] MEDS: GABAPENTIN 600 MG TAB PO SCH ×3 (08:47→21:44)
[2018-11-20] MEDS ORDERED: VENLAFAXINE HCL XR 75 MG CAPXR PO SCH (09:00)
[2018-11-20] MEDS ORDERED: SERTRALINE HCL 50 MG TABLET PO ONE (12:30)
--- NOTE | 2018-11-20 12:48 | Psychiatric Progress Note ---
Date of Service November 20, 2018 Impression / Recommendations Impression Pt reporting some mild improvement in mood and anxiety, but admits she feels she would not be able to sustain these developments in an outpatient setting. Pt is requesting trial of sertraline, as she has recalled since her initial assessment that the medication had previously been effective for her mood and anxiety. Pt was agreeable to receiving 25mg of sertraline as a one time dose, then having 50mg scheduled for tomorrow morning. She was agreeable to having her venlafaxine ER tapered to 37.5mg starting tomorrow. Pt does not recall a history of discontinuation syndrome when previously discontinuing venlafaxine. She is interested in continuing quetiapine at 100mg qHS as she feels the current dose is effective for sleep without causing grogginess. Despite some mild improvements, patient is still unable to contract for safety outside of the hospital setting. She remains at high risk of decompensation and harm to self if discharged prematurely. (1) Suicidal ideations: 11/19 -continue inpatient treatment on a 201 voluntary commitment. Suicide checks for safety. -Attend and participate in groups, work on healthy coping skills and discharge safety plan. -Work on coping skills for managing urges to cut. (2) Depression: 11/19 -patient reports recurrent major depression, with good response to venlafaxine XR in the past, and poor response to to previous SSRI trials. She agrees to resume venlafaxine XR, so will administer 37.5 mg today, and increase to 75 mg tomorrow, with a goal dose of 150 mg prior to discharge. This medication is available on the [employer] $9 list, which the patient states is affordable for her until she gets insurance. -The patient would also like to resume quetiapine, which she reports was helpful for sleep, mood, and anxiety. We will start 100 mg at bedtime. Reviewed side effects including risk of metabolic syndrome, and the need for monitoring with fasting glucose and lipid profile ordered for tomorrow morning. Also discussed that in order to minimize the risk of adverse effects, she may be able to taper off this medication once mood and anxiety symptoms are stabilized. 11/20 - Pt requesting cross-taper from venlafaxine ER to sertraline (still on $9 list) - received 25mg now dose - Ordered sertraline 50mg qAM starting tomorrow morning, and 37.5mg of venlafaxine - Continue quetiapine 100mg to assist with sleep (3) TONIO (generalized anxiety disorder): 11/19 -see medication instructions above. -Patient expressed interest in benzodiazepines, but discussed the risks related to these medications, and that given her alcohol use disorder, I would not recommend controlled substances. -Patient reports paradoxical response to antihistamines, so will order low-dose quetiapine 25 mg every 4 hours as needed anxiety. She also reports a desire to work on behavioral techniques and coping strategies for managing episodic anxiety. 11/20 - Continue as above (4) PTSD (post-traumatic stress disorder): 11/19 -see above. Patient would benefit from returning to therapy; need to clarify insurance first. 11/20 - Documented history of prazosin trial, explore affordability (5) Alcohol abuse: 11/19 - Brief intervention was offered and accepted Intervention was greater than 5 min in length. Brief interventions include: 1. Assess Readiness to Quit, 2. Advise: Help Patient to Reduce or Abstain from Alcohol, 3. Agree: Set Specific, Feasible Goals, 4. Assist: Anticipate barriers, Problem-Solving Solutions. Social work to 5. Arrange: Referrals to appropriate treatment. Summary of intervention: The patient is in precontemplation stage with regards to transtheoretical model of change. The patient is advised to decrease alcohol consumption due to depressant effects and risk of interactions with prescription medications. The patient agreed to try to cut back, and will be provided with recovery materials to continue to education self on how to cope with their condition without drinking. -Recovery protocol. -Continue AWSS for alcohol withdrawal, with gabapentin taper and lorazepam as needed. Risk Factors Assessment Male: No : Yes Do You Have Access To A Gun?: No Health Problems: Yes Mental Health Diagnoses: Yes Substance Use Disorders: Yes Previous Attempt: No Family History of Suicide: No Previous Psychiatric Hospitalization: Yes Hopelessness: Yes Smoker: No Protective Factors Assessment Oriental Orthodox Beliefs: No : No Responsible for Young Children: No Employed: Yes Supportive Family: Yes Interval History Identifying Information MARLO SPRINGER is a 23-year-old F who currently lives in [place], has a history of depression, anxiety, PTSD, and alcohol abuse, and was admitted on 11/18/18 18:32 on a 201 voluntary commitment for suicidal ideation and self injury by cutting. Chief Complaint "Um, I'm ok. Today has been alright so far." Review of Systems Notes Constitutional: denied Cardiovascular: denied Respiratory: denied Gastrointestinal: denied Neurological: denied Psychiatric: denies symptoms other than stated above Total of at least 10 systems reviewed, pertinent positives as above and in HPI. Sleep Information Total Hours of Sleep: 7.75 Sleep Comments: pt NPO during the night. pt on q-15 minute checks Meal Information Percent Meal Consumed - Breakfast: 25 Percent Meal Consumed - Lunch: 80 Percent Meal Consumed - Dinner: 75 Subjective Subjective Patient was seen & assessed and interval progress reviewed with Treatment Team. Staff reports the patient is willing to involve family in a meeting to c oordinate care. She has reported ongoing passive SI on the unit. Pt was seen today to assess progress since admission. Pt states she is feeling somewhat better today. She believes "that medication I get throughout the day" has been helpful to "clear the fog a bit" - assuming patient is referring to either hydroxyzine or gabapentin. Pt states she has not experienced any side effects from initiation of retrial of quetiapine and venlafaxine ER. Pt shares with this provider that she had been on sertraline previously and recalls it was helpful for her anxiety and depression. Pt is requesting at this time to switch to this medication instead of the venlafaxine. She denies known side effects to the medication. Pt states she slept decently last evening and "I don't feel as groggy as I did not the Seroquel before". Pt is requesting to continue quetiapine at it's current dose of 100mg qHS. She states the prn doses of quetiapine have only been somewhat helpful for anxiety. Pt states she has not experienced any SI today, but does not feel she would be able to manage her symptoms on an outpatient basis at this time. Pt denies other needs or concerns presently. Physical Exam Psychiatric Orientation: alert, oriented x 3 and cooperative (And pleasant) Apperance: appropriately dressed and appropriately groomed Eye Contact: good eye contact Motor Behavior: steady gait and station and no abnormal motor movements Speech: normal rate/rhythm/volume of speech Affect: + anxious affect and + blunted affect Mood: + depressed mood and + anxious mood "A little better, but I still do not feel like I could handle things" Thought Process: goal directed thought process, linear/logical thought process and clear/coherent thought process Thought Content: reality based without delusions Suicidal Thoughts: denies suicidal thoughts (But remains unable to contract for safety outside of the hospital setting) Homicidal Thoughts: denies homicidal thoughts Hallucinations: no auditory hallucinations and no visual hallucinations Cognition: attention grossly intact and language grossly intact Estimated Intelligence: consistent with education level Insight: + limited insight Judgement: + limited judgement Vital Signs (Past 24 Hours) Last Vital Signs Temp 36.9 C 11/20/18 09:38 Pulse 99 H 11/20/18 09:38 Resp 16 11/20/18 09:38 BP 120/80 11/20/18 09:38 Pulse Ox 99 11/18/18 20:16 Results & Data Laboratory Results Laboratory Results - last 24 hr 11/20/18 07:54 Fasting Glucose 92 Triglycerides 93 Cholesterol 154 LDL Cholesterol, Calc 80 VLDL Cholesterol, Calc 19 HDL Cholesterol 55 Cholesterol/HDL Ratio 3 Current Inpatient Medications Current Inpatient Medications: Current Inpatient Medications Acetaminophen (Tylenol) 650 mg PO Q4H PRN PRN Reason: Headache or Minor Fever Stop: 12/18/18 18:31 Al Hydrox/Mg Hydrox/Simethicone (Maalox) 30 ml PO Q4H PRN PRN Reason: GI Upset Stop: 12/18/18 18:31 Bismuth Subsalicylate (Kaopectate) 15 ml PO PRN PRN PRN Reason: Loose Stool Stop: 12/18/18 18:31 Gabapentin (Neurontin) 600 mg PO Q12H [facility] Stop: 11/21/18 08:16 Gabapentin (Neurontin) 600 mg PO Q24H [facility] Stop: 11/22/18 08:16 Hydroxyzine HCl (Vistaril) 50 mg PO HSZ PRN PRN Reason: Insomnia Stop: 12/18/18 18:31 Last Admin: 11/18/18 21:32 Dose: 50 mg Documented by: Hydroxyzine HCl (Vistaril) 25 mg PO Q4H PRN PRN Reason: Anxiety Stop: 12/18/18 18:31 Last Admin: 11/19/18 15:00 Dose: 25 mg Documented by: Magnesium Hydroxide (Milk Of Magnesia) 30 ml PO DAILY PRN PRN Reason: Heartburn Stop: 12/18/18 18:31 Quetiapine Fumarate (Seroquel) 25 mg PO Q4H PRN PRN Reason: Anxiety Stop: 12/19/18 11:44 Last Admin: 11/19/18 13:47 Dose: 25 mg Documented by: Quetiapine Fumarate (Seroquel) 100 mg PO HS [facility] Stop: 12/19/18 21:59 Last Admin: 11/19/18 21:29 Dose: 100 mg Documented by: Sertraline HCl (Zoloft) 50 mg PO QAM [facility] Stop: 12/21/18 08:59 Sodium Chloride ([place] Nasal) 1 - 2 sprays NA PRN PRN PRN Reason: Nasal Dryness/Congestion Stop: 12/18/18 18:31 Venlafaxine HCl (Effexor Extended Release) 37.5 mg PO QAM [facility] Stop: 12/21/18 08:59 Post Discharge Appointments Primary Care Physician Name Of Family Doctor: Olvinies Psychiatrist Name of Psychiatrist: Lupe Cox Psychiatrist's Date of Appointment with Psychiatrist: 11/28/18 Therapist Name of Therapist: Lupe Mota Information Receptionist Name of Information Receptionist: Olvinies Contact Information Discharge Discharge Address: [address] [place] [address] CPT Code CPT Code 29293 (1) Depression Active/Remission status: currently active Depression Type: major depressive disorder Major depression episode severity: severe Major depression recurrence: recurrent Psychotic features: without psychotic features Qualified Code(s): F33.2 - Major depressive disorder, recurrent severe without psychotic features
[2018-11-20] MEDS: QUETIAPINE FUMARATE 25 MG TABLET PO PRN (16:50)
[2018-11-20] MEDS: QUETIAPINE FUMARATE 100 MG TABLET PO SCH (21:44)
[2018-11-21] MEDS: VENLAFAXINE HCL XR 37.5 MG CAPXR PO SCH (07:53)
[2018-11-21] MEDS: SERTRALINE HCL 50 MG TABLET PO SCH (07:53)
[2018-11-21] MEDS: GABAPENTIN 600 MG TAB PO SCH (07:53)
[2018-11-21] MEDS: ACETAMINOPHEN 325 MG TAB PO PRN (07:54)
[2018-11-21] MEDS: QUETIAPINE FUMARATE 25 MG TABLET PO PRN ×2 (09:31→18:15)
--- NOTE | 2018-11-21 11:56 | Psychiatric Progress Note ---
Date of Service November 21, 2018 Impression / Recommendations Impression Pt reporting worsening mood today. Depression and anxiety are increased, with worsening SI and thoughts to cut herself. Pt states the current offerings of anti-anxiety medications are ineffective to manage acute episodes. Hydroxyzine reportedly has paradoxical effects for the patient, as does buspirone. Pt feels quetiapine causes sedation, but does not target anxious thoughts. Pt is agreeable to a trial of trazodone 25mg q4h prn in order to target acute anxiety until sertraline reaches therapeutic level. Risks, benefits, and potential side effects of the medication were reviewed. Pt verbalized understanding and is agreeable with treatment plan. Will continue sertraline and venlafaxine at current dosages, with ability to titrate to 100mg if tolerated. Patient remains unable to contract for safety outside of the hospital setting. She continues to be at high risk of decompensation and harm to self if discharged prematurely. (1) Suicidal ideations: 11/19 -continue inpatient treatment on a 201 voluntary commitment. Suicide checks for safety. -Attend and participate in groups, work on healthy coping skills and discharge safety plan. -Work on coping skills for managing urges to cut. 11/21 - Reports ongoing SI with desire to "keep cutting more and deeper" - She has picked scabs on her arms, which have been redressed with bandages and sleeves to prevent further damage - Continue to work on effective alternative coping strategies (2) Depression: 11/19 -patient reports recurrent major depression, with good response to venlafaxine XR in the past, and poor response to to previous SSRI trials. She agrees to resume venlafaxine XR, so will administer 37.5 mg today, and increase to 75 mg tomorrow, with a goal dose of 150 mg prior to discharge. This medication is available on the [employer] $9 list, which the patient states is affordable for her until she gets insurance. -The patient would also like to resume quetiapine, which she reports was helpful for sleep, mood, and anxiety. We will start 100 mg at bedtime. Reviewed side effects including risk of metabolic syndrome, and the need for monitoring with fasting glucose and lipid profile ordered for tomorrow morning. Also discussed that in order to minimize the risk of adverse effects, she may be able to taper off this medication once mood and anxiety symptoms are stabilized. 11/20 - Pt requesting cross-taper from venlafaxine ER to sertraline (still on $9 list) - received 25mg now dose - Ordered sertraline 50mg qAM starting tomorrow morning, and 37.5mg of venlafaxine - Continue quetiapine 100mg to assist with sleep 11/21 - Continue as above, titrating sertraline and tapering venlafaxine as tolerated - Continue quetiapine 100mg qHS - Encourage family meeting with outpatient supports (3) TONIO (generalized anxiety disorder): 11/19 -see medication instructions above. -Patient expressed interest in benzodiazepines, but discussed the risks related to these medications, and that given her alcohol use disorder, I would not recommend controlled substances. -Patient reports paradoxical response to antihistamines, so will order low-dose quetiapine 25 mg every 4 hours as needed anxiety. She also reports a desire to work on behavioral techniques and coping strategies for managing episodic a nxiety. 11/20 - Continue as above 11/21 - Offered trial of trazodone 25mg q4h prn anxiety, as hydroxyzine and quetiapine have been ineffective - Continue titration of sertraline as tolerated - Encourage development of healthy and effective coping strategies (4) PTSD (post-traumatic stress disorder): 11/19 -see above. Patient would benefit from returning to therapy; need to clarify insurance first. 11/20 - Documented history of prazosin trial, explore affordability (5) Alcohol abuse: 11/19 - Brief intervention was offered and accepted Intervention was greater than 5 min in length. Brief interventions include: 1. Assess Readiness to Quit, 2. Advise: Help Patient to Reduce or Abstain from Alcohol, 3. Agree: Set Specific, Feasible Goals, 4. Assist: Anticipate barriers, Problem-Solving Solutions. Social work to 5. Arrange: Referrals to appropriate treatment. Summary of intervention: The patient is in precontemplation stage with regards to transtheoretical model of change. The patient is advised to decrease alcohol consumption due to depressant effects and risk of interactions with prescription medications. The patient agreed to try to cut back, and will be provided with recovery materials to continue to education self on how to cope with their condition without drinking. -Recovery protocol. -Continue AWSS for alcohol withdrawal, with gabapentin taper and lorazepam as needed. Risk Factors Assessment Male: No : Yes Do You Have Access To A Gun?: No Health Problems: Yes Mental Health Diagnoses: Yes Substance Use Disorders: Yes Previous Attempt: No Family History of Suicide: No Previous Psychiatric Hospitalization: Yes Hopelessness: Yes Smoker: No Protective Factors Assessment Anabaptism Beliefs: No : No Responsible for Young Children: No Employed: Yes Supportive Family: Yes Interval History Identifying Information MARLO SPRINGER is a 23-year-old F who currently lives in [place], has a history of depression, anxiety, PTSD, and alcohol abuse, and was admitted on 11/18/18 18:32 on a 201 voluntary commitment for suicidal ideation and self injury by cutting. Chief Complaint "Not great, if I'm being honest." Review of Systems Notes Constitutional: reports fatigue and increased anxiety Cardiovascular: reporting feeling of tachycardia after receiving hydroxyzine Respiratory: denied Gastrointestinal: denied Neurological: denied Psychiatric: denies symptoms other than stated above Total of at least 10 systems reviewed, pertinent positives as above and in HPI. Sleep Information Total Hours of Sleep: 7 Sleep Comments: pt NPO during the night. pt on q-15 minute checks Meal Information Percent Meal Consumed - Breakfast: 75 Percent Meal Consumed - Lunch: 75 Percent Meal Consumed - Dinner: 60 Subjective Subjective Patient was seen & assessed and interval progress reviewed with Nursing. Staff reports the patient reported that she had been picking her scabs, dressings were applied along with gauze sleeves to protect from further mutilation. Pt was seen today to assess progress since admission. Pt states she is not doing as well today, stating she has been experiencing "anxiety all day." Pt states that there is no particular thought or stressor that can be identified at this time. She states, "I'm really feeling down, like there is no hope things will get better, so why keep trying." Pt also reports that prn anxiety medications have not been beneficial in managing her symptoms - quetiapine causing sedation with no effect on racing thoughts; hydroxyzine increasing anxiety and causing the patient to feel her heart is racing. Pt is agreeable to alternative agents in attempts to manage acute anxiety until her sertraline is more effective. Pt admits to ongoing SI with a general feeling of "I don't want to keep doing this" with current thoughts to "just keep cutting more." She is able to contract for safety only on the unit at this time. Pt denies other needs or concerns today. Physical Exam Psychiatric Orientation: alert, oriented x 3 and cooperative Apperance: appropriately dressed and appropriately groomed Eye Contact: + fair eye contact (often looking at floor) Motor Behavior: steady gait and station and no abnormal motor movements Speech: normal rate/rhythm/volume of speech (monotone, minimally productive) Affect: + depressed affect (severely) Mood: + depressed mood and + anxious mood ("Anxiety all day long") Thought Process: goal directed thought process and clear/coherent thought process Thought Content: reality based without delusions, + hopelessness, + worthlessness and + guilt Suicidal Thoughts: + reports suicidal thoughts and + reports suicidal plan ("cutting even more") Homicidal Thoughts: denies homicidal thoughts Hallucinations: no auditory hallucinations and no visual hallucinations Cognition: remote memory grossly intact Estimated Intelligence: consistent with education level Insight: + impaired insight Judgement: + impaired judgement Vital Signs (Past 24 Hours) Last Vital Signs Temp 36.5 C 11/21/18 06:41 Pulse 102 H 11/21/18 06:42 Resp 16 11/21/18 06:41 BP 105/71 11/21/18 06:42 Pulse Ox 99 11/18/18 20:16 Results & Data Current Inpatient Medications Current Inpatient Medications: Current Inpatient Medications Acetaminophen (Tylenol) 650 mg PO Q4H PRN PRN Reason: Headache or Minor Fever Stop: 12/18/18 18:31 Last Admin: 11/21/18 07:54 Dose: 650 mg Documented by: Al Hydrox/Mg Hydrox/Simethicone (Maalox) 30 ml PO Q4H PRN PRN Reason: GI Upset Stop: 12/18/18 18:31 Bismuth Subsalicylate (Kaopectate) 15 ml PO PRN PRN PRN Reason: Loose Stool Stop: 12/18/18 18:31 Gabapentin (Neurontin) 600 mg PO Q24H [facility] Stop: 11/22/18 08:16 Hydroxyzine HCl (Vistaril) 50 mg PO HSZ PRN PRN Reason: Insomnia Stop: 12/18/18 18:31 Last Admin: 11/18/18 21:32 Dose: 50 mg Documented by: Hydroxyzine HCl (Vistaril) 25 mg PO Q4H PRN PRN Reason: Anxiety Stop: 12/18/18 18:31 Last Admin: 11/20/18 14:14 Dose: 25 mg Documented by: Magnesium Hydroxide (Milk Of Magnesia) 30 ml PO DAILY PRN PRN Reason: Heartburn Stop: 12/18/18 18:31 Quetiapine Fumarate (Seroquel) 25 mg PO Q4H PRN PRN Reason: Anxiety Stop: 12/19/18 11:44 Last Admin: 11/21/18 09:31 Dose: 25 mg Documented by: Quetiapine Fumarate (Seroquel) 100 mg PO HS [facility] Stop: 12/19/18 21:59 Last Admin: 11/20/18 21:44 Dose: 100 mg Documented by: Sertraline HCl (Zoloft) 50 mg PO QAM [facility] Stop: 12/21/18 08:59 Last Admin: 11/21/18 07:53 Dose: 50 mg Documented by: Sodium Chloride ([place] Nasal) 1 - 2 sprays NA PRN PRN PRN Reason: Nasal Dryness/Congestion Stop: 12/18/18 18:31 Venlafaxine HCl (Effexor Extended Release) 37.5 mg PO QAM [facility] Stop: 12/21/18 08:59 Last Admin: 11/21/18 07:53 Dose: 37.5 mg Documented by: Post Discharge Appointments Primary Care Physician Name Of Family Doctor: Mandy Alas [facility] Date of Appointment with PCP: 12/03/18 Time of Appointment with PCP: 10am Provider Appointment Comment: [id number] [facility] [id number] Psychiatrist Name of Psychiatrist: Lupe Cox Psychiatrist's Date of Appointment with Psychiatrist: 11/28/18 Therapist Name of Therapist: Lupe Mota Paper Cleaner Name of Paper Cleaner: [facility] Phone Number for Paper Cleaner: [phone] Case Management Appointment Comment: call to schedule Contact Information Discharge Discharge [address]: [address] [place] [id number] CPT Code CPT Code 38023 (1) Depression Active/Remission status: currently active Depression Type: major depressive disorder Major depression episode severity: severe Major depression recurrence: recurrent Psychotic features: without psychotic features Qualified Code(s): F33.2 - Major depressive disorder, recurrent severe without psychotic features
[2018-11-21] MEDS: TRAZODONE HCL 50 MG TAB PO PRN ×2 (15:36→20:09)
[2018-11-21] MEDS: QUETIAPINE FUMARATE 100 MG TABLET PO SCH (21:37)
[2018-11-22] MEDS ORDERED: GABAPENTIN 600 MG TAB PO SCH (08:15)
[2018-11-22] MEDS: SERTRALINE HCL 50 MG TABLET PO SCH (08:22)
[2018-11-22] MEDS: TRAZODONE HCL 50 MG TAB PO PRN ×3 (08:23→17:17)
[2018-11-22] MEDS: VENLAFAXINE HCL XR 37.5 MG CAPXR PO SCH (08:23)
--- NOTE | 2018-11-22 11:26 | Psychiatric Progress Note ---
Date of Service November 22, 2018 Impression / Recommendations Impression Patient is reporting mood and anxiety are significantly worse today. Patient admits to worsened suicidal ideation and a significant increase in urges to self-harm. Patient denies any specific temptations on the unit, and has not further mutilated by picking her scabs. Safety measures were discussed with the patient, who is agreeable to temporary order for a safety tray with meals. At this time, she is able to verbalize a willingness to come to staff with updates on her self-harm urges. Patient was agreeable to specifically mentioning if there are any specific temptations on the unit as well as if there were any successful distraction techniques - as this would show patient is able to manage the urges independently. Patient seemed understanding of these expectations, and was willing to comply. Patient is agreeable to further titration of sertraline to 100 mg daily. A now dose of 50 mg was provided. Patient continues to request medications to assist with anxiety and ruminations, specifically requesting benzodiazepines. Patient does recognize that trazodone may be more effective than she initially admitted, stating she does not feel that she gave it enough time to be effective before asking for further sedating as needed medications. We did discuss the idea of an agent to assist with depression, and discussed the possibility of aripiprazole. This provider recognizes that long-term the medication may not be financially feasible; however, we can determine if there is any financial assistance through [employer] or [employer]. It is also possible that this medication could be used temporarily until sertraline reaches a therapeutic level. Risks and benefits, as well as potential side effects, were reviewed with the patient who is agreeable to trial of the medication at this time. Patient remains unable to contract for safety outside of the hospital setting, as her suicidal ideation and urges to self-harm have worsened since yesterday. She continues to be at high risk of decompensatio n and harm to self if discharged prematurely. (1) Suicidal ideations: 11/19 -continue inpatient treatment on a 201 voluntary commitment. Suicide checks for safety. -Attend and participate in groups, work on healthy coping skills and discharge safety plan. -Work on coping skills for managing urges to cut. 11/21 - Reports ongoing SI with desire to "keep cutting more and deeper" - She has picked scabs on her arms, which have been redressed with bandages and sleeves to prevent further damage - Continue to work on effective alternative coping strategies 11/22 - Ongoing SI, reporting self-harm urges on unit - safety tray ordered - Pt verbalizes a willingness to come to staff with self harm urges and to update on the status of these thoughts throughout the day - Will only order safety tray at this time, unless unable to contract for safety (2) Depression: 11/19 -patient reports recurrent major depression, with good response to venlafaxine XR in the past, and poor response to to previous SSRI trials. She agrees to resume venlafaxine XR, so will administer 37.5 mg today, and increase to 75 mg tomorrow, with a goal dose of 150 mg prior to discharge. This medication is available on the [employer] $9 list, which the patient states is affordable for her until she gets insurance. -The patient would also like to resume quetiapine, which she reports was helpful for sleep, mood, and anxiety. We will start 100 mg at bedtime. Reviewed side effects including risk of metabolic syndrome, and the need for monitoring with fasting glucose and lipid profile ordered for tomorrow morning. Also discussed that in order to minimize the risk of adverse effects, she may be able to taper off this medication once mood and anxiety symptoms are stabilized. 11/20 - Pt requesting cross-taper from venlafaxine ER to sertraline (still on $9 list) - received 25mg now dose - Ordered sertraline 50mg qAM starting tomorrow morning, and 37.5mg of venlafaxine - Continue quetiapine 100mg to assist with sleep 11/21 - Continue as above, titrating sertraline and tapering venlafaxine as tolerated - Continue quetiapine 100mg qHS - Encourage family meeting with outpatient supports 11/22 - Sertraline titrated to 100mg starting today - Continue quetiapine at 100mg at HS - Ordered aripiprazole 5mg for today, and every morning for depression (will need to explore coupons or GoodRx options for ongoing use) - may be beneficially temporarily until sertraline is therapeutic - Family meeting postponed due to patient having a difficult day, will reschedule when able to tolerate if indicated (3) TONIO (generalized anxiety disorder): 11/19 -see medication instructions above. -Patient expressed interest in benzodiazepines, but discussed the risks related to these medications, and that given her alcohol use disorder, I would not recommend controlled substances. -Patient reports paradoxical response to antihistamines, so will order low-dose quetiapine 25 mg every 4 hours as needed anxiety. She also reports a desire to work on behavioral techniques and coping strategies for managing episodic anxiety. 11/20 - Continue as above 11/21 - Offered trial of trazodone 25mg q4h prn anxiety, as hydroxyzine and quetiapine have been ineffective - Continue titration of sertraline as tolerated - Encourage development of healthy and effective coping strategies (4) PTSD (post-traumatic stress disorder): 11/19 -see above. Patient would benefit from returning to therapy; need to clarify insurance first. 11/20 - Documented history of prazosin trial, explore affordability (5) Alcohol abuse: 11/19 - Brief intervention was offered and accepted Intervention was greater than 5 min in length. Brief interventions include: 1. Assess Readiness to Quit, 2. Advise: Help Patient to Reduce or Abstain from Alcohol, 3. Agree: Set Specific, Feasible Goals, 4. Assist: Anticipate barriers, Problem-Solving Solutions. Social work to 5. Arrange: Referrals to appropriate treatment. Summary of intervention: The patient is in precontemplation stage with regards to transtheoretical model of change. The patient is advised to decrease alcohol consumption due to depressant effects and risk of interactions with prescription medications. The patient agreed to try to cut back, and will be provided with recovery materials to continue to education self on how to cope with their condition without drinking. -Recovery protocol. -Continue AWSS for alcohol withdrawal, with gabapentin taper and lorazepam as needed. Risk Factors Assessment Male: No : Yes Do You Have Access To A Gun?: No Health Problems: Yes Mental Health Diagnoses: Yes Substance Use Disorders: Yes Previous Attempt: No Family History of Suicide: No Previous Psychiatric Hospitalization: Yes Hopelessness: Yes Smoker: No Protective Factors Assessment Pent[employer]al Beliefs: No : No Responsible for Young Children: No Employed: Yes Supportive Family: Yes Interval History Identifying Information MARLO SPRINGER is a 23-year-old F who currently lives in [place], has a history of depression, anxiety, PTSD, and alcohol abuse, and was admitted on 11/18/18 18:32 on a 201 voluntary commitment for suicidal ideation and self injury by cutting. Chief Complaint "Not so great. I have a lot of anxiety and feeling really irritable." Review of Systems Notes Constitutional: reports increased anxiety and restlessness Cardiovascular: denied Respiratory: denied Gastrointestinal: denied Neurological: denied Psychiatric: denies symptoms other than stated above Total of at least 10 systems reviewed, pertinent positives as above and in HPI. Sleep Information Total Hours of Sleep: 7.25 Sleep Comments: pt given trazodone per rn. pt on q-15 minute checks Meal Information Percent Meal Consumed - Breakfast: 90 Percent Meal Consumed - Lunch: 100 Percent Meal Consumed - Dinner: 90 Subjective Subjective Patient was seen & assessed and interval progress reviewed with Treatment Team. Staff reports the patient had admitted self-harm urges this morning, denying specific plans on the unit. At one point, the patient reported to staff that she felt she was not being heard, and that if she "did something that people would listen." Patient was scheduled for a family meeting with her father today, which was canceled as it was felt patient was not yet ready. Patient was seen today to assess progress since admission. At time of this encounter, patient is appearing anxious but less so than described. Patient admits that she is not having a good day, feeling very anxious and experiencing a lot of self-harm urges. Patient states that she is having some frustration with her anxiety as "we keep trying different things, and nothing is working." The patient does later admit that she may not be giving trazodone sufficient time to be effective prior to requesting as needed quetiapine. Patient admits that this may be contributing to her believes that the medications only make her sleepy. Patient was agreeable to allowing additional time for trazodone to be effective before requesting any other medication for her anxiety. Patient was agreeable to continuing titration of sertraline at this time. We also discussed medication to help with ruminations about self-harm. Patient was agreeable to a trial of aripiprazole to assist with low moods which contribute to her self-harm and suicidal ideation. Patient does admit to a previous diagnosis of bipolar disorder, but symptoms reported are rather limited and in conjunction with substance abuse. She did appreciate that aripiprazole may be beneficial in managing some mood instability. Reviewed with patient her reports of self-harm urges. She states that she feels she is able to come to staff with any specific thoughts or intents urges to harm herself. Patient denies any specific temptations here on the unit. She is understanding of the temporary order for safety tray, and is agreeable to communicating thoughts with staff consistently in order to have the safety tray discontinued. Patient denies other needs or concerns at this time. Physical Exam Psychiatric Orientation: alert, oriented x 3, cooperative and + guarded (Initially, but then softens) Apperance: appropriately dressed and appropriately groomed Eye Contact: good eye contact Motor Behavior: steady gait and station and no abnormal motor movements Speech: normal rate/rhythm/volume of speech Affect: + depressed affect and + anxious affect Mood: + depressed mood and + anxious mood "Not so great" and "anxious and really irritable" Thought Process: goal directed thought process and clear/coherent thought proces s Thought Content: reality based without delusions, + hopelessness and + worthlessness Suicidal Thoughts: + reports suicidal thoughts (Admits to thoughts to end her life, denies any specific temptations or seeking out plans here on the unit.) Homicidal Thoughts: denies homicidal thoughts Hallucinations: no auditory hallucinations and no visual hallucinations Cognition: recent memory grossly intact, attention grossly intact and language grossly intact Estimated Intelligence: consistent with education level Insight: + impaired insight Judgement: + impaired judgement Vital Signs (Past 24 Hours) Last Vital Signs Temp 36.6 C 11/22/18 06:34 Pulse 87 11/22/18 06:34 Resp 16 11/22/18 06:34 BP 104/70 11/22/18 06:34 Pulse Ox 99 11/18/18 20:16 Results & Data Current Inpatient Medications Current Inpatient Medications: Current Inpatient Medications Acetaminophen (Tylenol) 650 mg PO Q4H PRN PRN Reason: Headache or Minor Fever Stop: 12/18/18 18:31 Last Admin: 11/21/18 07:54 Dose: 650 mg Documented by: Al Hydrox/Mg Hydrox/Simethicone (Maalox) 30 ml PO Q4H PRN PRN Reason: GI Upset Stop: 12/18/18 18:31 Bismuth Subsalicylate (Kaopectate) 15 ml PO PRN PRN PRN Reason: Loose Stool Stop: 12/18/18 18:31 Hydroxyzine HCl (Vistaril) 50 mg PO HSZ PRN PRN Reason: Insomnia Stop: 12/18/18 18:31 Last Admin: 11/18/18 21:32 Dose: 50 mg Documented by: Hydroxyzine HCl (Vistaril) 25 mg PO Q4H PRN PRN Reason: Anxiety Stop: 12/18/18 18:31 Last Admin: 11/21/18 12:55 Dose: 25 mg Documented by: Magnesium Hydroxide (Milk Of Magnesia) 30 ml PO DAILY PRN PRN Reason: Heartburn Stop: 12/18/18 18:31 Quetiapine Fumarate (Seroquel) 25 mg PO Q4H PRN PRN Reason: Anxiety Stop: 12/19/18 11:44 Last Admin: 11/21/18 18:15 Dose: 25 mg Documented by: Quetiapine Fumarate (Seroquel) 100 mg PO HS NICOLAS Stop: 12/19/18 21:59 Last Admin: 11/21/18 21:37 Dose: 100 mg Documented by: Sertraline HCl (Zoloft) 50 mg PO QAM NICOLAS Stop: 12/21/18 08:59 Last Admin: 11/22/18 08:22 Dose: 50 mg Documented by: Sodium Chloride ([place] Nasal) 1 - 2 sprays NA PRN PRN PRN Reason: Nasal Dryness/Congestion Stop: 12/18/18 18:31 Trazodone HCl (Desyrel) 25 mg PO Q4H PRN PRN Reason: anxiety Stop: 12/21/18 14:14 Last Admin: 11/22/18 08:23 Dose: 25 mg Documented by: Venlafaxine HCl (Effexor Extended Release) 37.5 mg PO QAM [facility] Stop: 12/21/18 08:59 Last Admin: 11/22/18 08:23 Dose: 37.5 mg Documented by: Post Discharge Appointments Primary Care Physician Name Of Family Doctor: [facility] Date of Appointment with PCP: 12/03/18 Time of Appointment with PCP: 10am Provider Appointment Comment: [address], [place] [address] Psychiatrist Name of Psychiatrist: Lupe Sandoval - Dr. Cox Psychiatrist's Date of Appointment with Psychiatrist: 11/28/18 Psychiatric Appointment Comment: [address], [place] [address] Therapist Name of Therapist: Lupe Mota Therapist's Therapy Appointment Comment: [address], [place] [address] Surg Nurse Name of Surg Nurse: [facility] Phone Number for Surg Nurse: [phone] Case Management Appointment Comment: call to schedule Contact Information Discharge Discharge Address: [address] [place] [address], [facility], CATHRYN Jensen [facility] CPT Code CPT Code 05868 (1) Depression Active/Remission status: currently active Depression Type: major depressive disorder Major depression episode severity: severe Major depression recurrence: recurrent Psychotic features: without psychotic features Qualified Code(s): F33.2 - Major depressive disorder, recurrent severe without psychotic features
[2018-11-22] MEDS: QUETIAPINE FUMARATE 25 MG TABLET PO PRN ×2 (12:18→19:00)
[2018-11-22] MEDS ORDERED: SERTRALINE HCL 50 MG TABLET PO ONE (14:45)
[2018-11-22] MEDS: ARIPiprazole 5 MG TAB PO SCH (15:14)
[2018-11-22] MEDS: ALUMINUM/MAGNESIUM SUSP 30 ML UDC PO PRN (15:14)
[2018-11-22] MEDS: ACETAMINOPHEN 325 MG TAB PO PRN (20:36)
[2018-11-22] MEDS: QUETIAPINE FUMARATE 100 MG TABLET PO SCH (22:05)
[2018-11-23] MEDS: TRAZODONE HCL 50 MG TAB PO PRN ×2 (09:23→14:32)
[2018-11-23] MEDS: SERTRALINE HCL 50 MG TABLET PO SCH (09:23)
[2018-11-23] MEDS: ARIPiprazole 5 MG TAB PO SCH (09:23)
[2018-11-23] MEDS: GABAPENTIN 100 MG CAP PO PRN ×3 (12:07→19:11)
--- NOTE | 2018-11-23 13:54 | Psychiatric Progress Note ---
Date of Service November 23, 2018 Impression / Recommendations Impression Patient is reporting mood and anxiety remain worse today. Patient remains unable to contract for safety outside of the hospital setting, as her suicidal ideation and urges to self-harm have worsened since yesterday. She continues to be at high risk of decompensation and harm to self if discharged prematurely. (1) Suicidal ideations: 11/19 -continue inpatient treatment on a 201 voluntary commitment. Suicide checks for safety. -Attend and participate in groups, work on healthy coping skills and discharge safety plan. -Work on coping skills for managing urges to cut. 11/21 - Reports ongoing SI with desire to "keep cutting more and deeper" - She has picked scabs on her arms, which have been redressed with bandages and sleeves to prevent further damage - Continue to work on effective alternative coping strategies 11/22 - Ongoing SI, reporting self-harm urges on unit - safety tray ordered - Pt verbalizes a willingness to come to staff with self harm urges and to update on the status of these thoughts throughout the day - Will only order safety tray at this time, unless unable to contract for safety (2) Depression: 11/19 -patient reports recurrent major depression, with good response to venlafaxine XR in the past, and poor response to to previous SSRI trials. She agrees to resume venlafaxine XR, so will administer 37.5 mg today, and increase to 75 mg tomorrow, with a goal dose of 150 mg prior to discharge. This medication is available on the [employer] $9 list, which the patient states is affordable for her until she gets insurance. -The patient would also like to resume quetiapine, which she reports was helpful for sleep, mood, and anxiety. We will start 100 mg at bedtime. Reviewed side effects including risk of metabolic syndrome, and the need for monitoring with fasting glucose and lipid profile ordered for tomorrow morning. Also discussed that in order to minimize the risk of adverse effects, she may be able to taper off this medication once mood and anxiety symptoms are stabilized. 11/20 - Pt requesting cross-taper from venlafaxine ER to sertraline (still on $9 list) - received 25mg now dose - Ordered sertraline 50mg qAM starting tomorrow morning, and 37.5mg of venlafaxine - Continue quetiapine 100mg to assist with sleep 11/21 - Continue as above, titrating sertraline and tapering venlafaxine as tolerated - Continue quetiapine 100mg qHS - Encourage family meeting with outpatient supports 11/22 - Sertraline titrated to 100mg starting today - Continue quetiapine at 100mg at HS - Ordered aripiprazole 5mg for today, and every morning for depression (will need to explore coupons or GoodRx options for ongoing use) - may be beneficially temporarily until sertraline is therapeutic - Family meeting postponed due to patient having a difficult day, will reschedule when able to tolerate if indicated (3) TONIO (generalized anxiety disorder): 11/19 -see medication instructions above. -Patient expressed interest in benzodiazepines, but discussed the risks related to these medications, and that given her alcohol use disorder, I would not recommend controlled substances. -Patient reports paradoxical response to antihistamines, so will order low-dose quetiapine 25 mg every 4 hours as needed anxiety. She also reports a desire to work on behavioral techniques and coping strategies for managing episodic anxiety. 11/20 - Continue as above 11/21 - Offered trial of trazodone 25mg q4h prn anxiety, as hydroxyzine and quetiapine have been ineffective - Continue titration of sertraline as tolerated - Encourage development of healthy and effective coping strategies 11/23 -risks/benefits/alternatives reviewed re: Neurontin 100 mg po BID anxiety with plan for additional 100 mg TID prn trial in place of Seroquel and Vistaril prns. She agrees not to combine with ETOH and reviewed that better option longer term than resuming benzo. (4) PTSD (post-traumatic stress disorder): 11/19 -see above. Patient would benefit from returning to therapy; need to clarify insurance first. 11/20 - Documented history of prazosin trial, explore affordability (5) Alcohol abuse: 11/19 - Brief intervention was offered and accepted Intervention was greater than 5 min in length. Brief interventions include: 1. Assess Readiness to Quit, 2. Advise: Help Patient to Reduce or Abstain from Alcohol, 3. Agree: Set Specific, Feasible Goals, 4. Assist: Anticipate barriers, Problem-Solving Solutions. Social work to 5. Arrange: Referrals to appropriate treatment. Summary of intervention: The patient is in precontemplation stage with regards to transtheoretical model of change. The patient is advised to decrease alcohol consumption due to depressant effects and risk of interactions with prescription medications. The patient agreed to try to cut back, and will be provided with recovery materials to continue to education self on how to cope with their condition without drinking. -Recovery protocol. -Continue AWSS for alcohol withdrawal, with gabapentin taper and lorazepam as needed. Risk Factors Assessment Male: No : Yes Do You Have Access To A Gun?: No Health Problems: Yes Mental Health Diagnoses: Yes Substance Use Disorders: Yes Previous Attempt: No Family History of Suicide: No Previous Psychiatric Hospitalization: Yes Hopelessness: Yes Smoker: No Protective Factors Assessment Anabaptism Beliefs: No : No Responsible for Young Children: No Employed: Yes Supportive Family: Yes Interval History Identifying Information MARLO SPRINGER is a 23-year-old F who currently lives in [place], has a history of depression, anxiety, PTSD, and alcohol abuse, and was admitted on 11/18/18 18:32 on a 201 voluntary commitment for suicidal ideation and self injury by cutting. Chief Complaint "I feel like I'm not much better, maybe even worse", referring to her anxiety Review of Systems Sleep Information Total Hours of Sleep: 7.25 Sleep Comments: pt given trazodone per rn. pt on q-15 minute checks Meal Information Percent Meal Consumed - Breakfast: 100 Percent Meal Consumed - Lunch: 50 Percent Meal Consumed - Dinner: 30 Subjective Subjective Patient was seen & assessed and interval progress reviewed with Nursing and social work. Some urge to pick at previous SIB scabs this am, left group due to panicky feeling, perhaps in anticipation of parents visiting. She doesn't feel that prn Vistaril or Seroquel are helpful and would like to know additional options. Abilify just added to Zoloft yesterday and had some dizziness in the afternoon. Physical Exam Psychiatric Orientation: alert and cooperative Apperance: appropriately dressed and appropriately groomed Eye Contact: + fair eye contact (often looking at floor) Motor Behavior: steady gait and station and no abnormal motor movements Speech: normal rate/rhythm/volume of speech Affect: + depressed affect and + anxious affect Mood: + depressed mood and + anxious mood Thought Process: goal directed thought process Thought Content: reality based without delusions Suicidal Thoughts: denies suicidal plan ("cutting even more"); + reports suicidal thoughts (Admits to thoughts to end her life, denies any specific temptations or seeking out plans here on the unit.) Homicidal Thoughts: denies homicidal thoughts Hallucinations: no auditory hallucinations and no visual hallucinations Cognition: recent memory grossly intact, remote memory grossly intact, attention grossly intact and language grossly intact Estimated Intelligence: consistent with education level Insight: + limited insight Judgement: + limited judgement Vital Signs (Past 24 Hours) Last Vital Signs Temp 36.8 C 11/23/18 06:31 Pulse 87 11/23/18 06:32 Resp 16 11/23/18 06:31 BP 98/61 L 11/23/18 06:32 Pulse Ox 99 11/18/18 20:16 Results & Data Current Inpatient Medications Current Inpatient Medications: Current Inpatient Medications Acetaminophen (Tylenol) 650 mg PO Q4H PRN PRN Reason: Headache or Minor Fever Stop: 12/18/18 18:31 Last Admin: 11/22/18 20:36 Dose: 650 mg Documented by: Al Hydrox/Mg Hydrox/Simethicone (Maalox) 30 ml PO Q4H PRN PRN Reason: GI Upset Stop: 12/18/18 18:31 Last Admin: 11/22/18 15:14 Dose: 30 ml Documented by: Aripiprazole (Abilify) 5 mg PO [facility] Stop: 12/22/18 14:29 Last Admin: 11/23/18 09:23 Dose: 5 mg Documented by: Bismuth Subsalicylate (Kaopectate) 15 ml PO PRN PRN PRN Reason: Loose Stool Stop: 12/18/18 18:31 Gabapentin (Neurontin) 100 mg PO TID PRN PRN Reason: Anxiety Stop: 12/23/18 13:59 Last Admin: 11/23/18 12:07 Dose: 100 mg Documented by: Magnesium Hydroxide (Milk Of Magnesia) 30 ml PO DAILY PRN PRN Reason: Heartburn Stop: 12/18/18 18:31 Quetiapine Fumarate (Seroquel) 100 mg PO [facility] Stop: 12/19/18 21:59 Last Admin: 11/22/18 22:05 Dose: 100 mg Documented by: Sertraline [facility] ([facility]oloft) [facility] Stop: 12/23/18 08:59 Last Admin: 11/23/18 09:23 Dose: 100 mg Documented by: Sodium Chloride ([place] Nasal) 1 - 2 sprays NA PRN PRN PRN Reason: Nasal Dryness/Congestion Stop: 12/18/18 18:31 Trazodone HCl (Desyrel) 25 mg PO Q4H PRN PRN Reason: anxiety Stop: 12/21/18 14:14 Last Admin: 11/23/18 09:23 Dose: 25 mg Documented by: Post Discharge Appointments Primary Care Physician Name Of Family Doctor: Mandy Alas [facility] Date of Appointment with PCP: 12/03/18 Time of Appointment with PCP: 10am Provider Appointment Comment: [address] [place] [facility] [address] Psychiatrist Name of Psychiatrist: Lupe Sandoval - Dr. Cox Psychiatrist's Date of Appointment with Psychiatrist: 11/28/18 Psychiatric Appointment Comment: [address], [place] [address] Therapist Name of Therapist: Lupe Mota Therapist's Therapy Appointment Comment: [address], [place] [address] Sander Hand Name of Sander Hand: [facility] Phone Number for Sander Hand: [phone] Case Management Appointment Comment: call to schedule Contact Information Discharge Discharge Address: [address] [place] [address], [address] [address] CPT Code CPT Code 22269 (1) Depression Depression Type: major depressive disorder Major depression recurrence: r ecurrent Active/Remission status: currently active Major depression episode severity: severe Psychotic features: without psychotic features Qualified Code(s): F33.2 - Major depressive disorder, recurrent severe without psychotic features
[2018-11-23] MEDS: NICOTINE 7 MG/24 HR TDSY TD SCH (15:36)
[2018-11-23] MEDS: QUETIAPINE FUMARATE 100 MG TABLET PO SCH (20:51)
[2018-11-24] MEDS: ARIPiprazole 5 MG TAB PO SCH (08:58)
[2018-11-24] MEDS: SERTRALINE HCL 50 MG TABLET PO SCH (08:58)
[2018-11-24] MEDS: NICOTINE 7 MG/24 HR TDSY TD SCH (08:59)
[2018-11-24] MEDS: GABAPENTIN 100 MG CAP PO PRN ×3 (10:17→16:37)
[2018-11-24] MEDS: TRAZODONE HCL 50 MG TAB PO PRN ×2 (13:00→19:59)
--- NOTE | 2018-11-24 14:10 | Psychiatric Progress Note ---
Date of Service November 24, 2018 Impression / Recommendations Impression Patient is essentially unchanged. Patient remains unable to contract for safety outside of the hospital setting, as her suicidal ideation and urges to self-harm continue. She continues to be at high risk of decompensation and harm to self if discharged prematurely. (1) Suicidal ideations: 11/19 -continue inpatient treatment on a 201 voluntary commitment. Suicide checks for safety. -Attend and participate in groups, work on healthy coping skills and discharge safety plan. -Work on coping skills for managing urges to cut. 11/21 - Reports ongoing SI with desire to "keep cutting more and deeper" - She has picked scabs on her arms, which have been redressed with bandages and sleeves to prevent further damage - Continue to work on effective alternative coping strategies 11/22 - Ongoing SI, reporting self-harm urges on unit - safety tray ordered - Pt verbalizes a willingness to come to staff with self harm urges and to update on the status of these thoughts throughout the day - Will only order safety tray at this time, unless unable to contract for safety (2) Depression: 11/19 -patient reports recurrent major depression, with good response to venlafaxine XR in the past, and poor response to to previous SSRI trials. She agrees to resume venlafaxine XR, so will administer 37.5 mg today, and increase to 75 mg tomorrow, with a goal dose of 150 mg prior to discharge. This medication is available on the [employer] $9 list, which the patient states is affordable for her until she gets insurance. -The patient would also like to resume quetiapine, which she reports was helpful for sleep, mood, and anxiety. We will start 100 mg at bedtime. Reviewed side effects including risk of metabolic syndrome, and the need for monitoring with fasting glucose and lipid profile ordered for tomorrow morning. Also discussed that in order to minimize the risk of adverse effects, she may be able to taper off this medication once mood and anxiety symptoms are stabilized. 11/20 - Pt requesting cross-taper from venlafaxine ER to sertraline (still on $9 list) - received 25mg now dose - Ordered sertraline 50mg qAM starting tomorrow morning, and 37.5mg of venlafaxine - Continue quetiapine 100mg to assist with sleep 11/21 - Continue as above, titrating sertraline and tapering venlafaxine as tolerated - Continue quetiapine 100mg qHS - Encourage family meeting with outpatient supports 11/22 - Sertraline titrated to 100mg starting today - Continue quetiapine at 100mg at HS - Ordered aripiprazole 5mg for today, and every morning for depression (will need to explore coupons or GoodRx options for ongoing use) - may be beneficially temporarily until sertraline is therapeutic - Family meeting postponed due to patient having a difficult day, will reschedule when able to tolerate if indicated (3) TONIO (generalized anxiety disorder): 11/19 -see medication instructions above. -Patient expressed interest in benzodiazepines, but discussed the risks related to these medications, and that given her alcohol use disorder, I would not recommend controlled substances. -Patient reports paradoxical response to antihistamines, so will order low-dose quetiapine 25 mg every 4 hours as needed anxiety. She also reports a desire to work on behavioral techniques and coping strategies for managing episodic anxiety. 11/20 - Continue as above 11/21 - Offered trial of trazodone 25mg q4h prn anxiety, as hydroxyzine and quetiapine have been ineffective - Continue titration of sertraline as tolerated - Encourage development of healthy and effective coping strategies 11/23 -risks/benefits/alternatives reviewed re: Neurontin 100 mg po TID prn trial in place of Seroquel and Vistaril prns. She agrees not to combine with ETOH and reviewed that better option longer term than resuming benzo. 11/24 -Increase Neurontin. (4) PTSD (post-traumatic stress disorder): 11/19 -see above. Patient would benefit from returning to therapy; need to clarify insurance first. 11/20 - Documented history of prazosin trial, explore affordability (5) Alcohol abuse: 11/19 - Brief intervention was offered and accepted Intervention was greater than 5 min in length. Brief interventions include: 1. Assess Readiness to Quit, 2. Advise: Help Patient to Reduce or Abstain from Alcohol, 3. Agree: Set Specific, Feasible Goals, 4. Assist: Anticipate barriers, Problem-Solving Solutions. Social work to 5. Arrange: Referrals to appropriate treatment. Summary of intervention: The patient is in precontemplation stage with regards to transtheoretical model of change. The patient is advised to decrease alcohol consumption due to depressant effects and risk of interactions with prescription medications. The patient agreed to try to cut back, and will be provided with recovery materials to continue to education self on how to cope with their condition without drinking. -Recovery protocol. -Continue AWSS for alcohol withdrawal, with gabapentin taper and lorazepam as needed. Risk Factors Assessment Male: No : Yes Do You Have Access To A Gun?: No Health Problems: Yes Mental Health Diagnoses: Yes Substance Use Disorders: Yes Previous Attempt: No Family History of Suicide: No Previous Psychiatric Hospitalization: Yes Hopelessness: Yes Smoker: No Protective Factors Assessment Jainism Beliefs: No : No Responsible for Young Children: No Employed: Yes Supportive Family: Yes Interval History Identifying Information MARLO SPRINGER is a 23-year-old F who currently lives in [place], has a history of depression, anxiety, PTSD, and alcohol abuse, and was admitted on 11/18/18 18:32 on a 201 voluntary commitment for suicidal ideation and self injury by cutting. Chief Complaint "worried in general". Review of Systems Sleep Information Total Hours of Sleep: 6 Sleep Comments: pt given trazodone per rn. pt on q-15 minute checks Meal Information Percent Meal Consumed - Breakfast: 0 Percent Meal Consumed - Lunch: 50 Percent Meal Consumed - Dinner: 75 Subjective Subjective Patient was seen & assessed and interval progress reviewed with Nursing and social work supervisor. She gave her partial (dental appliance) to staff so that she wouldn't self-injure with it last night. Her parents visited and it went better than she expected as superficial, played cards. Now focussed on the family meeting, feels that neurontin was helpful yesterday for her anxiety and she would like to try higher dose. She denies sedation or recurrence of dizziness. Note: family session had to be ended prematurely, patient walked to safe room by staff, prn focussed. It should be noted that a co-patient had just had a screaming outburst in the safe room a few moments before after a family meeting. Patient was given Neurontin 200 mg and later reported to staff that not feeling well physically (non-specific) and wondering if this was Effexor discontinuation syndrome. Reconfirmed last dose 11/19. Physical Exam Psychiatric Orientation: alert and cooperative Apperance: appropriately dressed and appropriately groomed Eye Contact: good eye contact Motor Behavior: steady gait and station and no abnormal motor movements Speech: normal rate/rhythm/volume of speech Affect: + depressed affect, + anxious affect and + blunted affect Mood: + depressed mood and + anxious mood Thought Process: goal directed thought process Thought Content: reality based without delusions and + guilt Suicidal Thoughts: denies suicidal plan ("cutting even more"); + reports suicidal thoughts (Admits to thoughts to end her life, denies any specific temptations or seeking out plans here on the unit.) Homicidal Thoughts: denies homicidal thoughts Hallucinations: no auditory hallucinations and no visual hallucinations Cognition: recent memory grossly intact, remote memory grossly intact, attention grossly intact and language grossly intact Estimated Intelligence: consistent with education level Insight: + limited insight and + impaired insight Judgement: + limited judgement and + impaired judgement Vital Signs (Past 24 Hours) Last Vital Signs Temp 36.5 C 11/24/18 07:11 Pulse 81 11/24/18 07:13 Resp 16 11/24/18 07:11 BP 101/67 11/24/18 07:13 Pulse Ox 99 11/18/18 20:16 Results & Data Current Inpatient Medications Current Inpatient Medications: Current Inpatient Medications Acetaminophen (Tylenol) 650 mg PO Q4H PRN PRN Reason: Headache or Minor Fever Stop: 12/18/18 18:31 Last Admin: 11/22/18 20:36 Dose: 650 mg Documented by: Al Hydrox/Mg Hydrox/Simethicone (Maalox) 30 ml PO Q4H PRN PRN Reason: GI Upset Stop: 12/18/18 18:31 Last Admin: 11/22/18 15:14 Dose: 30 ml Documented by: Aripiprazole (Abilify) 5 mg PO QAM [facility] Stop: 12/22/18 14:29 Last Admin: 11/24/18 08:58 Dose: 5 mg Documented by: Bismuth Subsalicylate (Kaopectate) 15 ml PO PRN PRN PRN Reason: Loose Stool Stop: 12/18/18 18:31 Gabapentin (Neurontin) 200 mg PO TID PRN PRN Reason: Anxiety Stop: 12/23/18 13:59 Last Admin: 11/24/18 11:48 Dose: 200 mg Documented by: Magnesium Hydroxide (Milk Of Magnesia) 30 ml PO DAILY PRN PRN Reason: Heartburn Stop: 12/18/18 18:31 Miscellaneous (Remove Nicoderm Patch) 1 ea N/A [facility] Stop: 12/23/18 21:59 Last Admin: 11/23/18 20:53 Dose: 1 ea Documented by: Nicotine (Nicoderm Cq) 7 mg TD QAM [facility] Stop: 12/23/18 14:29 Last Admin: 11/24/18 08:59 Dose: 7 mg Documented by: Quetiapine Fumarate (Seroquel) 100 mg PO HS [facility] Stop: 12/19/18 21:59 Last Admin: 11/23/18 20:51 Dose: 100 mg Documented by: Sertraline HCl (Zoloft) 100 mg PO QAM [facility] Stop: 12/23/18 08:59 Last Admin: 11/24/18 08:58 Dose: 100 mg Documented by: Sodium Chloride ([place] Nasal) 1 - 2 sprays NA PRN PRN PRN Reason: Nasal Dryness/Congestion Stop: 12/18/18 18:31 Trazodone HCl (Desyrel) 25 mg PO Q4H PRN PRN Reason: anxiety Stop: 12/21/18 14:14 Last Admin: 11/24/18 13:00 Dose: 25 mg Documented by: Post Discharge Appointments Primary Care Physician Name Of Family Doctor: Mandy Alas [facility] Date of Appointment with PCP: 12/03/18 Time of Appointment with PCP: 10am Provider Appointment Comment: [address] [place] [address] Psychiatrist Name of Psychiatrist: Lupe Sandoval - Dr. Cox Psychiatrist's Date of Appointment with Psychiatrist: 11/28/18 Psychiatric Appointment Comment: [address], [place] [address] Therapist Name of Therapist: Lupe Mota Therapist's Therapy Appointment Comment: [address], [place] [address] Graphite Pan Drier Tender Name of Graphite Pan Drier Tender: [facility] Phone Number for Graphite Pan Drier Tender: [phone] Case Management Appointment Comment: call to schedule Contact Information Discharge Discharge Address: [address] [place] [address], [facility], [place] [address] CPT Code CPT Code 58300 (1) Depression Active/Remission status: currently active Depression Type: major depressive disorder Major depression episode severity: severe Major depression recurrence: recurrent Psychotic features: without psychotic features Qualified Code(s): F33.2 - Major depressive disorder, recurrent severe without psychotic features
[2018-11-24] MEDS: ACETAMINOPHEN 325 MG TAB PO PRN (15:24)
[2018-11-24] MEDS: QUETIAPINE FUMARATE 100 MG TABLET PO SCH (21:45)
[2018-11-25] MEDS: SERTRALINE HCL 50 MG TABLET PO SCH (09:09)
[2018-11-25] MEDS: ARIPiprazole 5 MG TAB PO SCH (09:09)
[2018-11-25] MEDS: NICOTINE 7 MG/24 HR TDSY TD SCH (09:10)
[2018-11-25] MEDS: GABAPENTIN 100 MG CAP PO PRN ×3 (09:13→17:22)
--- NOTE | 2018-11-25 10:30 | Psychiatric Progress Note ---
Date of Service November 25, 2018 Impression / Recommendations Impression Patient remains depressed, anxious, with ongoing suicidal thoughts and urges to harm herself. She engaged in self-injurious behavior yesterday on the unit after a difficult family meeting with parents. She is unable to contract for safety outside of the hospital setting, , and remains at high risk of suicide if discharged prematurely. (1) Suicidal ideations: 11/19 -continue inpatient treatment on a 201 voluntary commitment. Suicide checks for safety. -Attend and participate in groups, work on healthy coping skills and discharge safety plan. -Work on coping skills for managing urges to cut. 11/21 - Reports ongoing SI with desire to "keep cutting more and deeper" - She has picked scabs on her arms, which have been redressed with bandages and sleeves to prevent further damage - Continue to work on effective alternative coping strategies 11/22 - Ongoing SI, reporting self-harm urges on unit - safety tray ordered - Pt verbalizes a willingness to come to staff with self harm urges and to update on the status of these thoughts throughout the day - Will only order safety tray at this time, unless unable to contract for safety 11/25 - Patient engaged in self-injurious behavior by scratching with an emery board yesterday; superficial scratches on left forearm visualized today and are healing well. - Patient continues to endorse suicidal thoughts and urges to self-harm, reports willingness to come to staff. Continue safety tray. (2) Depression: 11/19 -patient reports recurrent major depression, with good response to venlafaxine XR in the past, and poor response to to previous SSRI trials. She agrees to resume venlafaxine XR, so will administer 37.5 mg today, and increase to 75 mg tomorrow, with a goal dose of 150 mg prior to discharge. This medication is available on the [facility] $9 list, which the patient states is affordable for her until she gets insurance. -The patient would also like to resume quetiapine, which she reports was helpful for sleep, mood, and anxiety. We will start 100 mg at bedtime. Reviewed side effects including risk of metabolic syndrome, and the need for monitoring with fasting glucose and lipid profile ordered for tomorrow morning. Also discussed that in order to minimize the risk of adverse effects, she may be able to taper off this medication once mood and anxiety symptoms are stabilized. 11/20 - Pt requesting cross-taper from venlafaxine ER to sertraline (still on $9 list) - received 25mg now dose - Ordered sertraline 50mg qAM starting tomorrow morning, and 37.5mg of venlafaxine - Continue quetiapine 100mg to assist with sleep - Fasting lipid profile and glucose checked for monitoring on an atypical antipsychotic and were within normal limits. 11/21 - Continue as above, titrating sertraline and tapering venlafaxine as tolerated - Continue quetiapine 100mg qHS - Encourage family meeting with outpatient supports 11/22 - Sertraline titrated to 100mg starting today - Continue quetiapine at 100mg at HS - Ordered aripiprazole 5mg for today, and every morning for depression (will need to explore coupons or GoodRx options for ongoing use) - may be beneficially temporarily until sertraline is therapeutic - Family meeting postponed due to patient having a difficult day, will reschedule when able to tolerate if indicated 11/25 -Patient does not think she will be able to afford aripiprazole, will ask social work to check with [facility] to see if it is nonformulary there, but if not we will need to discontinue it and utilize a different medication that she will have access to. -Increase sertraline to 150 mg daily for tomorrow. Continue aripiprazole 5 mg every morning and quetiapine 100 mg at bedtime, and add quetiapine 50 mg as needed for anxiety which may also confer benefit to mood. -Referring to [facility] for aftercare as patient does not have access to care/insurance. (3) TONIO (generalized anxiety disorder): 11/19 -see medication instructions above. -Patient expressed interest in benzodiazepines, but discussed the risks related to these medications, and that given her alcohol use disorder, I would not recommend controlled substances. -Patient reports paradoxical response to antihistamines, so will order low-dose quetiapine 25 mg every 4 hours as needed anxiety. She also reports a desire to work on behavioral techniques and coping strategies for managing episodic anxiety. 11/20 - Continue as above 11/21 - Offered trial of trazodone 25mg q4h prn anxiety, as hydroxyzine and quetia pine have been ineffective - Continue titration of sertraline as tolerated - Encourage development of healthy and effective coping strategies 11/23 -risks/benefits/alternatives reviewed re: Neurontin 100 mg po TID prn trial in place of Seroquel and Vistaril prns. She agrees not to combine with ETOH and reviewed that better option longer term than resuming benzo. 11/24 -Increase Neurontin. 11/25 -Continue gabapentin 200 mg 3 times daily as needed anxiety, increase trazodone to 50 mg every 4 hours as needed anxiety at patient's request. Avoiding benzodiazepines given risk of abuse/misuse/negative outcomes. (4) PTSD (post-traumatic stress disorder): 11/19 -see above. Patient would benefit from returning to therapy; need to clarify insurance first. 11/20 - Documented history of prazosin trial, explore affordability (5) Alcohol abuse: 11/19 - Brief intervention was offered and accepted Intervention was greater than 5 min in length. Brief interventions include: 1. Assess Readiness to Quit, 2. Advise: Help Patient to Reduce or Abstain from Alcohol, 3. Agree: Set Specific, Feasible Goals, 4. Assist: Anticipate barriers, Problem-Solving Solutions. Social work to 5. Arrange: Referrals to appropriate treatment. Summary of intervention: The patient is in precontemplation stage with regards to transtheoretical model of change. The patient is advised to decrease alcohol consumption due to depressant effects and risk of interactions with prescription medications. The patient agreed to try to cut back, and will be provided with recovery materials to continue to education self on how to cope with their condition without drinking. -Recovery protocol. -Continue AWSS for alcohol withdrawal, with gabapentin taper and lorazepam as needed. Risk Factors Assessment Male: No : Yes Do You Have Access To A Gun?: No Health Problems: Yes Mental Health Diagnoses: Yes Substance Use Disorders: Yes Previous Attempt: No Family History of Suicide: No Previous Psychiatric Hospitalization: Yes Hopelessness: Yes Smoker: No Protective Factors Assessment Roman Catholic Beliefs: No : No Responsible for Young Children: No Employed: Yes Supportive Family: Yes Interval History Identifying Information MARLO SPRINGER is a 23-year-old F who currently lives in [place], has a history of depression, anxiety, PTSD, and alcohol abuse, and was admitted on 11/18/18 18:32 on a 201 voluntary commitment for suicidal ideation and self injury by cutting. Chief Complaint "Pretty bad, I acted on some feelings (to self injure) yesterday". Review of Systems Sleep Information Total Hours of Sleep: 7 Sleep Comments: pt given trazodone per rn. pt on q-15 minute checks Meal Information Percent Meal Consumed - Breakfast: 100 Percent Meal Consumed - Lunch: 40 Percent Meal Consumed - Dinner: 75 Subjective Subjective Patient was seen & assessed and interval progress reviewed with Treatment Team. Staff reports she had a very difficult family meeting yesterday, as her parents want her to go to a [facility] treatment program in [place], which the danie taylor is not interested in. They stated they would move there in order to support her, and that they were not supportive of any other treatment options. The meeting had to be discontinued by staff, and the patient escorted to the safe room, as she did not feel able to keep herself safe and was not thinking clearly. She was very upset, stating her parents would likely not speak to her for the rest of her hospitalization, as they have done this before. They have also refused to allow her to talk to her brother or to take her to get groceries and other necessities when she did not do what they wanted with respect to her treatment. She has reported higher anxiety for the past 24 hours since her meeting, receiving multiple as needed medications, including gabapentin and trazodone 25 mg. She met with a counselor last evening and processed her meeting, stating it went poorly, and she feels her parents are punishing her for not doing what they want. A peer reported that she took an emery board from another patient, and when staff asked her about it, she admitted to doing this and then broke the emery board in half and used it to superficially scratch her arm. On my assessment today, the patient was walking laps around the unit, stating she's "in the middle of a panic attack." She reports worsening mood, anxiety, and urges to self injure after the meeting with her parents yesterday. She admits to self harming with a nail file she took from another patient yesterday, scratching her forearm and breaking the skin slightly. She feels they "are withdrawing love" as she doesn't want to pursue the treatment they are in favor of. She is asking for "stronger medicine to help me get through." She is having a hard time sitting through groups because she feels "amped up." Sleep was good, "I slept, but I don't feel like I do when I wake up." Appetite is down and she is eating only a small portion of her meals. She continues to think about harming herself and says she is looking for things she could use on the unit, and reports thinking about using a pillow to smother herself, or a blanket to strangle herself, and states she feels able to come to agrees to come to staff if she is feeling like she will act on them. She says she has tried hydroxyzine but it makes her feel worse, trazodone 25mg was ineffective, and quetiapine 25mg was ineffective. She does think the gabapentin 200mg prn dose was helpful for anxiety. Physical Exam Psychiatric Orientation: alert and cooperative Apperance: appropriately dressed and appropriately groomed Eye Contact: + fair eye contact Motor Behavior: steady gait and station Restless, fidgeting Speech: normal rate/rhythm/volume of speech Affect: + depressed affect, + anxious affect, + constricted affect and mood congruent with affect Mood: + depressed mood and + anxious mood Thought Process: goal directed thought process Thought Content: + hopelessness and + guilt Suicidal Thoughts: + reports suicidal thoughts Ongoing suicidal thoughts and urges to harm herself. Homicidal Thoughts: denies homicidal thoughts Hallucinations: no auditory hallucinations Cognition: recent memory grossly intact, attention grossly intact and language grossly intact Insight: + impaired insight Judgement: + impaired judgement Vital Signs (Past 24 Hours) Last Vital Signs Temp 36.7 C 11/25/18 06:55 Pulse 101 H 11/25/18 06:56 Resp 16 11/25/18 06:55 BP 105/69 11/25/18 06:56 Pulse Ox 99 11/18/18 20:16 Results & Data Current Inpatient Medications Current Inpatient Medications: Current Inpatient Medications Acetaminophen (Tylenol) 650 mg PO Q4H PRN PRN Reason: Headache or Minor Fever Stop: 12/18/18 18:31 Last Admin: 11/24/18 15:24 Dose: 650 mg Documented by: Al Hydrox/Mg Hydrox/Simethicone (Maalox) 30 ml PO Q4H PRN PRN Reason: GI Upset Stop: 12/18/18 18:31 Last Admin: 11/22/18 15:14 Dose: 30 ml Documented by: Aripiprazole (Abilify) 5 mg PO [facility] Stop: 12/22/18 14:29 Last Admin: 11/25/18 09:09 Dose: 5 mg Documented by: Bismuth Subsalicylate (Kaopectate) 15 ml PO PRN PRN PRN Reason: Loose Stool Stop: 12/18/18 18:31 Gabapentin (Neurontin) 200 mg PO TID PRN PRN Reason: Anxiety Stop: 12/23/18 13:59 Last Admin: 11/25/18 09:13 Dose: 200 mg Documented by: Magnesium Hydroxide (Milk Of Magnesia) 30 ml PO DAILY PRN PRN Reason: Heartburn Stop: 12/18/18 18:31 Miscellaneous (Remove Nicoderm Patch) 1 ea N/A [facility] Stop: 12/23/18 21:59 Last Admin: 11/24/18 21:46 Dose: 1 ea Documented by: Nicotine (Nicoderm Cq) 7 mg TD [facility] Stop: 12/23/18 14:29 Last Admin: 11/25/18 09:10 Dose: 7 mg Documented by: Quetiapine Fumarate (Seroquel) 100 mg PO [facility] Stop: 12/19/18 21:59 Last Admin: 11/24/18 21:45 Dose: 100 mg Documented by: Sertraline HCl (Zoloft) 100 mg PO [facility] Stop: 12/23/18 08:59 Last Admin: 11/25/18 09:09 Dose: 100 mg Documented by: Sodium Chloride (Rincon Nasal) 1 - 2 sprays NA PRN PRN PRN Reason: Nasal Dryness/Congestion Stop: 12/18/18 18:31 Trazodone HCl (Desyrel) 25 mg PO Q4H PRN PRN Reason: anxiety Stop: 12/21/18 14:14 Last Admin: 11/24/18 19:59 Dose: 25 mg Documented by: Post Discharge Appointments Primary Care Physician Name Of Family Doctor: [facility] Date of Appointment with PCP: 12/03/18 Time of Appointment with PCP: 10am Provider Appointment Comment: [id number] [facility] [id number] Psychiatrist Name of Psychiatrist: Lupe Sandoval - Dr. Cox Psychiatrist's Date of Appointment with Psychiatrist: 11/28/18 Psychiatric Appointment Comment: [address], [place] [id number] Therapist Name of Therapist: Lupe Mota Therapist's Therapy Appointment Comment: [address], [place] [id number] [facility] Drafter Name of Hull Drafter: [facility] Phone Number for Hull Drafter: [phone] Case Management Appointment Comment: call to schedule Contact Information Discharge Discharge Address: [address] [place] [id number] CPT Code CPT Code 94799 (1) Depression Depression Type: major depressive disorder Major depression recurrence: recurrent Active/Remission status: currently active Major depression episode severity: severe Psychotic features: without psychotic features Qualified Code(s): F33.2 - Major depressive disorder, recurrent severe without psychotic features
[2018-11-25] MEDS ORDERED: QUETIAPINE FUMARATE 25 MG TABLET PO PRN (10:33)
[2018-11-25] MEDS: TRAZODONE HCL 50 MG TAB PO PRN ×2 (11:05→15:21)
[2018-11-25] MEDS: ACETAMINOPHEN 325 MG TAB PO PRN (12:32)
[2018-11-25] MEDS: QUETIAPINE FUMARATE 100 MG TABLET PO SCH (21:12)
[2018-11-26] MEDS: NICOTINE 7 MG/24 HR TDSY TD SCH (08:10)
[2018-11-26] MEDS: SERTRALINE HCL 100 MG TABLET PO SCH (08:11)
[2018-11-26] MEDS: GABAPENTIN 100 MG CAP PO PRN ×2 (08:16→12:56)
--- NOTE | 2018-11-26 12:10 | Psychiatric Progress Note ---
Date of Service November 26, 2018 Impression / Recommendations Impression Patient remains depressed, anxious, with ongoing suicidal thoughts and urges to harm herself. We reviewed her self-harm behavior yesterday following her family meeting. Pt feels she remains able to communicate urges with staff. Pt feels gabapentin is effective for anxiety and requests for the medication to be scheduled. At this point, verbalizes most beneficial medications are sertraline, trazodone, and gabapentin. She is agreeable to formulating a plan to eventually remove quetiapine from her medication list. Will titrate gabapentin to 300mg TID, and order trazodone 100mg at bedtime. She is unable to contract for safety outside of the hospital setting, , and remains at high risk of suicide if discharged prematurely. (1) Suicidal ideations: 11/19 -continue inpatient treatment on a 201 voluntary commitment. Suicide checks for safety. -Attend and participate in groups, work on healthy coping skills and discharge safety plan. -Work on coping skills for managing urges to cut. 11/21 - Reports ongoing SI with desire to "keep cutting more and deeper" - She has picked scabs on her arms, which have been redressed with bandages and sleeves to prevent further damage - Continue to work on effective alternative coping strategies 11/22 - Ongoing SI, reporting self-harm urges on unit - safety tray ordered - Pt verbalizes a willingness to come to staff with self harm urges and to update on the status of these thoughts throughout the day - Will only order safety tray at this time, unless unable to contract for safety 11/25 - Patient engaged in self-injurious behavior by scratching with an emery board yesterday; superficial scratches on left forearm visualized today and are healing well. - Patient continues to endorse suicidal thoughts and urges to self-harm, reports willingness to come to staff. Continue safety tray. 11/26 - Pt reports better ability to communicate self-harm and suicidal urges to staff - Had reported attempts yesterday to hold her breath to suffocate and thoughts to "smother" her face with a pillow - communicated both to staff - Reports mild improvement in the severity of these urges today (2) Depression: 11/19 -patient reports recurrent major depression, with good response to venlafaxine XR in the past, and poor response to to previous SSRI trials. She agrees to resume venlafaxine XR, so will administer 37.5 mg today, and increase to 75 mg tomorrow, with a goal dose of 150 mg prior to discharge. This medication is available on the [employer] $9 list, which the patient states is affordable for her until she gets insurance. -The patient would also like to resume quetiapine, which she reports was helpful for sleep, mood, and anxiety. We will start 100 mg at bedtime. Reviewed side effects including risk of metabolic syndrome, and the need for monitoring with fasting glucose and lipid profile ordered for tomorrow morning. Also discussed that in order to minimize the risk of adverse effects, she may be able to taper off this medication once mood and anxiety symptoms are stabilized. 11/20 - Pt requesting cross-taper from venlafaxine ER to sertraline (still on $9 list) - received 25mg now dose - Ordered sertraline 50mg qAM starting tomorrow morning, and 37.5mg of venlafaxine - Continue quetiapine 100mg to assist with sleep - Fasting lipid profile and glucose checked for monitoring on an atypical antipsychotic and were within normal limits. 11/21 - Continue as above, titrating sertraline and tapering venlafaxine as tolerated - Continue quetiapine 100mg qHS - Encourage family meeting with outpatient supports 11/22 - Sertraline titrated to 100mg starting today - Continue quetiapine at 100mg at HS - Ordered aripiprazole 5mg for today, and every morning for depression (will need to explore coupons or GoodRx options for ongoing use) - may be beneficially temporarily until sertraline is therapeutic - Family meeting postponed due to patient having a difficult day, will reschedule when able to tolerate if indicated 11/25 -Patient does not think she will be able to afford aripiprazole, will ask social work to check with [facility] to see if it is nonformulary there, but if not we will need to discontinue it and utilize a different medication that she will have access to. -Increase sertraline to 150 mg daily for tomorrow. Continue aripiprazole 5 mg every morning and quetiapine 100 mg at bedtime, and add quetiapine 50 mg as needed for anxiety which may also confer benefit to mood. -Referring to [facility] for aftercare as patient does not have access to care/insurance. 11/26 - Continue sertraline at 150mg, consider possible need for further titration - Requesting use of trazodone at HS, rather than quetiapine - Ordered trazodone 100mg qHS olesya; quetiapine changed to 100mg HS prn - and can be cancelled if no longer needed - aripiprazole discontinued (3) TONIO (generalized anxiety disorder): 11/19 -see medication instructions above. -Patient expressed interest in benzodiazepines, but discussed the risks related to these medications, and that given her alcohol use disorder, I would not recommend controlled substances. -Patient reports paradoxical response to antihistamines, so will order low-dose quetiapine 25 mg every 4 hours as needed anxiety. She also reports a desire to work on behavioral techniques and coping strategies for managing episodic anxiety. 11/20 - Continue as above 11/21 - Offered trial of trazodone 25mg q4h prn anxiety, as hydroxyzine and quetiapine have been ineffective - Continue titration of sertraline as tolerated - Encourage development of healthy and effective coping strategies 11/23 -risks/benefits/alternatives reviewed re: Neurontin 100 mg po TID prn trial in place of Seroquel and Vistaril prns. She agrees not to combine with ETOH and reviewed that better option longer term than resuming benzo. 11/24 -Increase Neurontin. 11/25 -Continue gabapentin 200 mg 3 times daily as needed anxiety, increase trazodone to 50 mg every 4 hours as needed anxiety at patient's request. Avoiding benzodiazepines given risk of abuse/misuse/negative outcomes. 11/26 - Increase gabapentin to 300mg TID and have scheduled for use - as patient reports beneficial for anxiety - Pt feeling prn trazodone more beneficial than prn quetiapine. Consider discontinuation of quetiapine - especially if no longer utilizing for sleep - Continue to encourage development of healthy and effective coping strategies (4) PTSD (post-traumatic stress disorder): 11/19 -see above. Patient would benefit from returning to therapy; need to clarify insurance first. 11/20 - Documented history of prazosin trial, explore affordability (5) Alcohol abuse: 11/19 - Brief intervention was offered and accepted Intervention was greater than 5 min in length. Brief interventions include: 1. Assess Readiness to Quit, 2. Advise: Help Patient to Reduce or Abstain from Alcohol, 3. Agree: Set Specific, Feasible Goals, 4. Assist: Anticipate barriers, Problem-Solving Solutions. Social work to 5. Arrange: Referrals to appropriate treatment. Summary of intervention: The patient is in precontemplation stage with regards to transtheoretical model of change. The patient is advised to decrease alcohol consumption due to depressant effects and risk of interactions with prescription medications. The patient agreed to try to cut back, and will be provided with recovery materials to continue to education self on how to cope with their condition without drinking. -Recovery protocol. -Continue AWSS for alcohol withdrawal, with gabapentin taper and lorazepam as needed. Risk Factors Assessment Male: No : Yes Do You Have Access To A Gun?: No Health Problems: Yes Mental Health Diagnoses: Yes Substance Use Disorders: Yes Previous Attempt: No Family History of Suicide: No Previous Psychiatric Hospitalization: Yes Hopelessness: Yes Smoker: No Protective Factors Assessment Sabianism Beliefs: No : No Responsible for Young Children: No Employed: Yes Supportive Family: Yes Interval History Identifying Information MARLO SPRINGER is a 23-year-old F who currently lives in [place], has a history of depression, anxiety, PTSD, and alcohol abuse, and was admitted on 11/18/18 18:32 on a 201 voluntary commitment for suicidal ideation and self injury by cutting. Chief Complaint "Um okay, I feel kind of out of it." Review of Systems Notes Constitutional: denied Cardiovascular: reported an episode earlier of feeling tachycardic Respiratory: denied Gastrointestinal: denied Neurological: denied Psychiatric: denies symptoms other than stated above Total of at least 10 systems reviewed, pertinent positives as above and in HPI. Sleep Information Total Hours of Sleep: 7 Sleep Comments: pt on q-15 minute checks Meal Information Percent Meal Consumed - Breakfast: 75 Percent Meal Consumed - Lunch: 50 Percent Meal Consumed - Dinner: 100 Subjective Subjective Patient was seen & assessed and interval progress reviewed with nursing. Staff reports that yesterday the patient admitted to attempting to smother herself with her pillow. She was willing to disclose self-injurious thoughts and give up other items she viewed as temptations (paper, bottle caps, etc.). Patient was seen today to assess progress since admission. She reports to this provider that she feels "kind of out of it." She starts the conversation by admitting that she has had "a few slip-ups", meaning acts of furtherance towards harming herself. Patient shared the above with this provider. She states that she feels she is able to communicate these temptations with staff as, "I feel it is getting easier for me to express myself better." The patient states her biggest thought leading to these actions is "all just be the same forever." We reviewed medications, sharing with patient concern for the number of as needed agents on board. Patient feels the most beneficial medications for her at this time are sertraline, gabapentin, and trazodone. Patient is actually requesting to utilize trazodone as a sleep medication in order to replace the quetiapine. She is also requesting the gabapentin be scheduled during the day as "I think I need more discipline about using medications, this way I know how often I should take it." Patient does report an episode of what felt like tachycardia following eneida up this morning. She states she is feeling better physically at this time. Patient denies current suicidal or self-injurious thoughts, but will continue to report to staff should these concerns recur. She denies any needs or concerns at this time. Physical Exam Psychiatric Orientation: alert, oriented x 3 and cooperative Apperance: appropriately dressed, appropriately groomed and appeared stated age Eye Contact: good eye contact Motor Behavior: steady gait and station and no abnormal motor movements Speech: normal rate/rhythm/volume of speech Affect: + depressed affect Mood: + depressed mood and + anxious mood "I just feel kind of out of it" and "maybe a little better" Thought Process: goal directed thought process and clear/coherent thought process Thought Content: reality based without delusions Suicidal Thoughts: + reports suicidal thoughts Homicidal Thoughts: denies homicidal thoughts Hallucinations: no auditory hallucinations and no visual hallucinations Cognition: remote memory grossly intact, attention grossly intact and language grossly intact Estimated Intelligence: consistent with education level Insight: + impaired insight Judgement: + impaired judgement Vital Signs (Past 24 Hours) Last Vital Signs Temp 36.6 C 11/26/18 10:53 Pulse 98 H 11/26/18 10:53 Resp 18 11/26/18 06:46 BP 99/67 L 11/26/18 10:53 Pulse Ox 99 11/18/18 20:16 Results & Data Current Inpatient Medications Current Inpatient Medications: Current Inpatient Medications Acetaminophen (Tylenol) 650 mg PO Q4H PRN PRN Reason: Headache or Minor Fever Stop: 12/18/18 18:31 Last Admin: 11/25/18 12:32 Dose: 650 mg Documented by: Al Hydrox/Mg Hydrox/Simethicone (Maalox) 30 ml PO Q4H PRN PRN Reason: GI Upset Stop: 12/18/18 18:31 Last Admin: 11/22/18 15:14 Dose: 30 ml Documented by: Bismuth Subsalicylate (Kaopectate) 15 ml PO PRN PRN PRN Reason: Loose Stool Stop: 12/18/18 18:31 Gabapentin (Neurontin) 200 mg PO TID PRN PRN Reason: Anxiety Stop: 12/23/18 13:59 Last Admin: 11/26/18 08:16 Dose: 200 mg Documented by: Magnesium Hydroxide (Milk Of Magnesia) 30 ml PO DAILY PRN PRN Reason: Heartburn Stop: 12/18/18 18:31 Miscellaneous (Remove Nicoderm Patch) 1 ea N/A [facility] Stop: 12/23/18 21:59 Last Admin: 11/25/18 21:12 Dose: 1 ea Documented by: Nicotine (Nicoderm Cq) 7 mg TD [facility] Stop: 12/23/18 14:29 Last Admin: 11/26/18 08:10 Dose: 7 mg Documented by: Quetiapine Fumarate (Seroquel) 100 mg PO [facility] Stop: 12/19/18 21:59 Last Admin: 11/25/18 21:12 Dose: 100 mg Documented by: Quetiapine Fumarate (Seroquel) 50 mg PO Q4H PRN PRN Reason: Anxiety Stop: 12/25/18 10:44 Sertraline HCl (Zoloft) 150 mg PO QAM [facility] Stop: 12/26/18 08:59 Last Admin: 11/26/18 08:11 Dose: 150 mg Documented by: Sodium Chloride ([place] Nasal) 1 - 2 sprays NA PRN PRN PRN Reason: Nasal Dryness/Congestion Stop: 12/18/18 18:31 Trazodone HCl (Desyrel) 50 mg PO Q4H PRN PRN Reason: anxiety Stop: 12/21/18 14:14 Last Admin: 11/25/18 15:21 Dose: 50 mg Documented by: Post Discharge Appointments Primary Care Physician Name Of Family Doctor: Mandy Alas [facility] Date of Appointment with PCP: 12/03/18 Time of Appointment with PCP: 10 am Provider App[facility]ment [facility] [id number] [place] [address] Psychiatrist Name of Psychiatrist: Lupe Sandoval - Dr. Cox Psychiatrist's Date of Appointment with Psychiatrist: 11/28/18 Psychiatric Appointment Comment: [address], [place] [address] Therapist Name of Therapist: Lupe Sandoval - Denice Mota Therapist's Therapy Appointment Comment: [address], [place] [address] [employer] Operator Name of [employer] Room Operator: [facility] Phone Number for [employer] Room Operator: [phone] Case Management Appointment Comment: call to schedule Contact Information Discharge Discharge [address] [address] [place] [address], [address] [place] [address] CPT Code CPT Code 75073 (1) Depression Active/Remission status: currently active Depression Type: major depressive disorder Major depression episode severity: severe Major depression recurrence: recurrent Psychotic features: without psychotic features Qualified Code(s): F33.2 - Major depressive disorder, recurrent severe without psychotic features
[2018-11-26] MEDS ORDERED: QUETIAPINE FUMARATE 100 MG TABLET PO PRN (13:32)
[2018-11-26] MEDS ORDERED: GABAPENTIN 100 MG CAP PO STA (13:42)
[2018-11-26] MEDS: GABAPENTIN 300 MG CAP PO SCH ×2 (13:59→21:00)
[2018-11-26] MEDS: TRAZODONE HCL 50 MG TAB PO PRN (16:33)
[2018-11-26] MEDS: TRAZODONE HCL 100 MG TAB PO SCH (21:00)
[2018-11-27] MEDS: GABAPENTIN 300 MG CAP PO SCH ×3 (08:04→21:01)
[2018-11-27] MEDS: SERTRALINE HCL 100 MG TABLET PO SCH (08:04)
[2018-11-27] MEDS: NICOTINE 7 MG/24 HR TDSY TD SCH (08:05)
--- NOTE | 2018-11-27 10:02 | Psychiatric Progress Note ---
Date of Service November 27, 2018 Impression / Recommendations Impression Patient is reporting significant improvement in mood and anxiety since yesterday. She denies any suicidal ideation or self-harm urges over the course of the day yesterday. Patient is tolerating current medication regimen and feels it is effective for her anxiety. Patient is agreeable to continuing current regimen for today. Will formally discontinue quetiapine, and attempts to consolidate medication regimen. In anticipation of discharge in the next few days, will discontinue safety tray. Staff has talked with patient regarding the use of silverware, patient feels she would be able to communicate with staff any self-harm urges and bring the utensils to the nurses station. Reviewed with patient desire to see consistently stable mood and recommendation for ongoing observation to prevent destabilization at discharge. Ongoing inpatient treatment is medically necessary to ensure consistency of mood improvement decompensation, which is likely if she is discharged prematurely. (1) Suicidal ideations: 11/19 -continue inpatient treatment on a 201 voluntary commitment. Suicide checks for safety. -Attend and participate in groups, work on healthy coping skills and discharge safety plan. -Work on coping skills for managing urges to cut. 11/21 - Reports ongoing SI with desire to "keep cutting more and deeper" - She has picked scabs on her arms, which have been redressed with bandages and sleeves to prevent further damage - Continue to work on effective alternative coping strategies 11/22 - Ongoing SI, reporting self-harm urges on unit - safety tray ordered - Pt verbalizes a willingness to come to staff with self harm urges and to update on the status of these thoughts throughout the day - Will only order safety tray at this time, unless unable to contract for safety 11/25 - Patient engaged in self-injurious behavior by scratching with an emery board yesterday; superficial scratches on left forearm visualized today and are healing well. - Patient continues to endorse suicidal thoughts and urges to self-harm, reports willingness to come to staff. Continue safety tray. 11/26 - Pt reports better ability to communicate self-harm and suicidal urges to staff - Had reported attempts yesterday to hold her breath to suffocate and thoughts to "smother" her face with a pillow - communicated both to staff - Reports mild improvement in the severity of these urges today 11/27 - Denies suicidal ideation or self-harm urges yesterday or this morning - In anticipation of discharge in the next few days, will discontinue safety tray - Pt reports feeling able to reach out to staff and return silverware if any concerns (2) Depression: 11/19 -patient reports recurrent major depression, with good response to venlafaxine XR in the past, and poor response to to previous SSRI trials. She agrees to resume venlafaxine XR, so will administer 37.5 mg today, and increase to 75 mg tomorrow, with a goal dose of 150 mg prior to discharge. This medication is available on the [employer] $9 list, which the patient states is affordable for her until she gets insurance. -The patient would also like to resume quetiapine, which she reports was helpful for sleep, mood, and anxiety. We will start 100 mg at bedtime. Reviewed side effects including risk of metabolic syndrome, and the need for monitoring with fasting glucose and lipid profile ordered for tomorrow morning. Also discussed that in order to minimize the risk of adverse effects, she may be able to taper off this medication once mood and anxiety symptoms are stabilized. 11/20 - Pt requesting cross-taper from venlafaxine ER to sertraline (still on $9 list) - received 25mg now dose - Ordered sertraline 50mg qAM starting tomorrow morning, and 37.5mg of venlafaxine - Continue quetiapine 100mg to assist with sleep - Fasting lipid profile and glucose checked for monitoring on an atypical antipsychotic and were within normal limits. 11/21 - Continue as above, titrating sertraline and tapering venlafaxine as tolerated - Continue quetiapine 100mg qHS - Encourage family meeting with outpatient supports 11/22 - Sertraline titrated to 100mg starting today - Continue quetiapine at 100mg at HS - Ordered aripiprazole 5mg for today, and every morning for depression (will need to explore coupons or GoodRx options for ongoing use) - may be beneficially temporarily until sertraline is therapeutic - Family meeting postponed due to patient having a difficult day, will reschedule when able to tolerate if indicated 11/25 -Patient does not think she will be able to afford aripiprazole, will ask social work to check with [facility] to see if it is nonformulary there, but if not we will need to discontinue it and utilize a different medication that she will have access to. -Increase sertraline to 150 mg daily for tomorrow. Continue aripiprazole 5 mg every morning and quetiapine 100 mg at bedtime, and add quetiapine 50 mg as needed for anxiety which may also confer benefit to mood. -Referring to [facility] for aftercare as patient does not have access to care/insurance. 11/26 - Continue sertraline at 150mg, consider possible need for further titration - Requesting use of trazodone at HS, rather than quetiapine - Ordered trazodone 100mg qHS olesya; quetiapine changed to 100mg HS prn - and can be cancelled if no longer needed - aripiprazole discontinued 11/27 - Continue sertraline 150mg qAM; gabapentin 300mg TID; and trazodone 100mg qHS - Quetiapine discontinued - Reporting improvement in mood since yesterday (3) TONIO (generalized anxiety disorder): 11/19 -see medication instructions above. -Patient expressed interest in benzodiazepines, but discussed the risks related to these medications, and that given her alcohol use disorder, I would not recommend controlled substances. -Patient reports paradoxical response to antihistamines, so will order low-dose quetiapine 25 mg every 4 hours as needed anxiety. She also reports a desire to work on behavioral techniques and coping strategies for managing episodic anxiety. 11/20 - Continue as above 11/21 - Offered trial of trazodone 25mg q4h prn anxiety, as hydroxyzine and quetiapine have been ineffective - Continue titration of sertraline as tolerated - Encourage development of healthy and effective coping strategies 11/23 -risks/benefits/alternatives reviewed re: Neurontin 100 mg po TID prn trial in place of Seroquel and Vistaril prns. She agrees not to combine with ETOH and reviewed that better option longer term than resuming benzo. 11/24 -Increase Neurontin. 11/25 -Continue gabapentin 200 mg 3 times daily as needed anxiety, increase trazodone to 50 mg every 4 hours as needed anxiety at patient's request. Avoiding benzodiazepines given risk of abuse/misuse/negative outcomes. 11/26 - Increase gabapentin to 300mg TID and have scheduled for use - as patient reports beneficial for anxiety - Pt feeling prn trazodone more beneficial than prn quetiapine. Consider discontinuation of quetiapine - especially if no longer utilizing for sleep - Continue to encourage development of healthy and effective coping strategies 11/27 - Reporting benefits of sertraline and gabapentin. Mild anxiety ongoing, prn trazodone beneficial for acute anxiety - Quetiapine discontinued (4) PTSD (post-traumatic stress disorder): 11/19 -see above. Patient would benefit from returning to therapy; need to clarify insurance first. 11/20 - Documented history of prazosin trial, explore affordability (5) Alcohol abuse: 11/19 - Brief intervention was offered and accepted Intervention was greater than 5 min in length. Brief interventions include: 1. Assess Readiness to Quit, 2. Advise: Help Patient to Reduce or Abstain from Alcohol, 3. Agree: Set Specific, Feasible Goals, 4. Assist: Anticipate barriers, Problem-Solving Solutions. Social work to 5. Arrange: Referrals to appropriate treatment. Summary of intervention: The patient is in precontemplation stage with regards to transtheoretical model of change. The patient is advised to decrease alcohol consumption due to depressant effects and risk of interactions with prescription medications. The patient agreed to try to cut back, and will be provided with recovery materials to continue to education self on how to cope with their condition without drinking. -Recovery protocol. -Continue AWSS for alcohol withdrawal, with gabapentin taper and lorazepam as needed. Risk Factors Assessment Male: No : Yes Do You Have Access To A Gun?: No Health Problems: Yes Mental Health Diagnoses: Yes Substance Use Disorders: Yes Previous Attempt: No Family History of Suicide: No Previous Psychiatric Hospitalization: Yes Hopelessness: Yes Smoker: No Protective Factors Assessment Caodaism Beliefs: No : No Responsible for Young Children: No Employed: Yes Supportive Family: Yes Interval History Identifying Information MARLO SPRINGER is a 23-year-old F who currently lives in [place], has a history of depression, anxiety, PTSD, and alcohol abuse, and was admitted on 11/18/18 18:32 on a 201 voluntary commitment for suicidal ideation and self injury by cutting. Chief Complaint "I am feeling so much better today. I slept pretty well last night." Review of Systems Notes Constitutional: reports improved sleep last evening Cardiovascular: denied Respiratory: denied Gastrointestinal: denied Neurological: denied Psychiatric: denies symptoms other than stated above Total of at least 10 systems reviewed, pertinent positives as above and in HPI. Sleep Information Total Hours of Sleep: 7.25 Sleep Comments: pt on q-15 minute checks Meal Information Percent Meal Consumed - Breakfast: 75 Percent Meal Consumed - Lunch: 60 Percent Meal Consumed - Dinner: 100 Subjective Subjective Patient was seen & assessed and interval progress reviewed with Treatment Team. Staff reports the patient has shown dramatic improvement in mood since yesterday. It is reported she feels comfortable with her current medication regimen, and is denying suicidal thoughts or any self-harm urges over the course of the day yesterday. Patient rated her mood a 6/10 and "peaceful." Patient w as seen today to assess progress since admission. She states that she is "feeling positive, the anxiety is still there but I am feeling better." Patient reports that she is cautious, and is somewhat concerned about maintaining this improvement in mood and anxiety. She does feel that her current medication regimen is beneficial for her, and feels she is closer to being able to contract for safety outside of the hospital. Patient questions if a discharge tomorrow evening would be possible. Patient was informed of our desire to see consistent mood over the course of several days, to ensure stability prior to discharge. Patient was understanding and agreeable with this. She states she has been sleeping well, denies suicidal thoughts and any self-harm urges. Patient denies any other specific needs or concerns today. Physical Exam Psychiatric Orientation: alert, oriented x 3 and cooperative (And pleasant) Apperance: appropriately dressed, appropriately groomed and appeared stated age Eye Contact: good eye contact Motor Behavior: steady gait and station and no abnormal motor movements Speech: normal rate/rhythm/volume of speech Affect: euthymic affect (Appearing bright and energetic today) Mood: + anxious mood ("The anxiety is still there but I am feeling better"); no depressed mood Thought Process: goal directed thought process, linear/logical thought process and clear/coherent thought process Thought Content: reality based without delusions Suicidal Thoughts: denies suicidal thoughts Homicidal Thoughts: denies homicidal thoughts Hallucinations: no auditory hallucinations and no visual hallucinations Cognition: remote memory grossly intact, attention grossly intact and language grossly intact Estimated Intelligence: consistent with education level Insight: good insight Judgement: good judgement Vital Signs (Past 24 Hours) Last Vital Signs Temp 36.6 C 11/27/18 06:47 Pulse 106 H 11/27/18 06:47 Resp 18 11/27/18 06:47 BP 102/65 11/27/18 06:47 Pulse Ox 99 11/18/18 20:16 Results & Data Current Inpatient Medications Current Inpatient Medications: Current Inpatient Medications Acetaminophen (Tylenol) 650 mg PO Q4H PRN PRN Reason: Headache or Minor Fever Stop: 12/18/18 18:31 Last Admin: 11/25/18 12:32 Dose: 650 mg Documented by: Al Hydrox/Mg Hydrox/Simethicone (Maalox) 30 ml PO Q4H PRN PRN Reason: GI Upset Stop: 12/18/18 18:31 Last Admin: 11/22/18 15:14 Dose: 30 ml Documented by: Bismuth Subsalicylate (Kaopectate) 15 ml PO PRN PRN PRN Reason: Loose Stool Stop: 12/18/18 18:31 Gabapentin (Neurontin) 300 mg PO TID [facility] Stop: 12/26/18 13:59 Last Admin: 11/27/18 08:04 Dose: 300 mg Documented by: Magnesium Hydroxide (Milk Of Magnesia) 30 ml PO DAILY PRN PRN Reason: Heartburn Stop: 12/18/18 18:31 Miscellaneous (Remove Nicoderm Patch) 1 ea N/A HS [facility] Stop: 12/23/18 21:59 Last Admin: 11/26/18 21:10 Dose: 1 ea Documented by: Nicotine (Nicoderm Cq) 7 mg TD [facility] Stop: 12/23/18 14:29 Last Admin: 11/27/18 08:05 Dose: 7 mg Documented by: Quetiapine Fumarate (Seroquel) 50 mg PO Q4H PRN PRN Reason: Anxiety Stop: 12/25/18 10:44 Quetiapine Fumarate (Seroquel) 100 mg PO HS PRN PRN Reason: anxiety/insomnia Stop: 12/19/18 21:59 Sertraline HCl (Zoloft) 150 mg PO QAM [facility] Stop: 12/26/18 08:59 Last Admin: 11/27/18 08:04 Dose: 150 mg Documented by: Sodium Chloride ([place] Nasal) 1 - 2 sprays NA PRN PRN PRN Reason: Nasal Dryness/Congestion Stop: 12/18/18 18:31 Trazodone HCl (Desyrel) 50 mg PO Q4H PRN PRN Reason: anxiety Stop: 12/21/18 14:14 Last Admin: 11/26/18 16:33 Dose: 50 mg Documented by: Trazodone HCl (Desyrel) 100 mg PO HS OLESYA Stop: 12/26/18 21:59 Last Admin: 11/26/18 21:00 Dose: 100 mg Documented by: Post Discharge Appointments Primary Care Physician Name Of Family Doctor: Mandy Alas [facility] Date of Appointment with PCP: 12/03/18 Time of Appointment with PCP: 10 am Provider App[facility]ment Comment[facility] [id number] [facility] [address] Psychiatrist Name of Psychiatrist: Lupe Cox Psychiatrist's Date of Appointment with Psychiatrist: 11/28/18 Psychiatric Appointment Comment: [address], [place] [address] Therapist Name of Therapist: Lupe Mota Therapist's Therapy Appointment Comment: [address], [place] [address] Retinal Angiographer Name of Retinal Angiographer: [facility] Phone Number for Retinal Angiographer: [phone] Case Management Appointment Comment: call to schedule Contact Information Discharge Discharge Address: [address] [place] [id number] CPT Code CPT Code 89032 (1) Depression Active/Remission status: currently active Depression Type: major depressive disorder Major depression episode severity: severe Major depression recurrence: recurrent Psychotic features: without psychotic features Qualified Code(s): F33.2 - Major depressive disorder, recurrent severe without psychotic features
[2018-11-27] MEDS: TRAZODONE HCL 50 MG TAB PO PRN ×2 (12:34→17:45)
[2018-11-27] MEDS: ALUMINUM/MAGNESIUM SUSP 30 ML UDC PO PRN (19:04)
[2018-11-27] MEDS: TRAZODONE HCL 100 MG TAB PO SCH (21:01)
[2018-11-27] MEDS: ACETAMINOPHEN 325 MG TAB PO PRN (22:01)
[2018-11-28] MEDS: SERTRALINE HCL 100 MG TABLET PO SCH (08:23)
[2018-11-28] MEDS: GABAPENTIN 300 MG CAP PO SCH (08:23)
[2018-11-28] MEDS: NICOTINE 7 MG/24 HR TDSY TD SCH (08:25)
--- NOTE | 2018-11-28 09:17 | Discharge Summary ---
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 providers for direction. If unable to reach your providers, please call the CAN HELP LINE AT or go to the closest Emergency Room. 5. Avoid alcohol and un-prescribed drugs. 6. You have been provided with the Mental Health Advance Directives Pamphlet for your review. AFTERCARE APPOINTMENTS: * Please call your insurance company prior to your scheduled appointment to confirm your aftercare providers are covered. Take your insurance information to your appointments. WHO TO CALL AND WHEN: Medical Emergencies: For questions or emergencies related to your hospital stay, please contact the Inpatient Behavioral Health Unit at [phone]. A nipping machine operator is on-call 15/01 for the Behavioral Health Unit for emergencies At any time you feel your situation is an emergency, you may also call 911 immediately. Your Doctors Instructions noted above were prepared by provider Kimmy Aguayo MD. Prescriptions: New sertraline 100 mg Tablet 150 mg PO QAM Qty: 45 RF: 0 trazodone 100 mg Tablet 100 mg PO HS Qty: 30 RF: 0 gabapentin 300 mg Capsule 300 mg PO TID Qty: 90 RF: 0 Continued acetaminophen [Tylenol] 325 mg Tablet 650 mg PO UD PRN (Reason: Pain) RF: 0 albuterol sulfate [Ventolin HFA] 90 mcg/actuation HFA aerosol inhaler 2 inha INH Q4H PRN (Reason: shortness of breath or wheezing) Qty: 6.7 RF: 0 ibuprofen 200 mg Tablet 400 mg PO Q8 PRN (Reason: Pain) RF: 0 ondansetron 4 mg tablet,disintegrating 4 mg PO Q6H PRN (Reason: nausea and vomiting) Qty: 12 RF: 0 drospirenone-ethinyl estradiol [Macey (28)] 3-0.03 mg Tablet 1 tab PO DAILY RF: 0 Discontinued quetiapine 300 mg Tablet 150 mg PO HS RF: 0 venlafaxine 150 mg Capsule,Extended Release 24hr 150 mg PO DAILY RF: 0 prazosin 2 mg Capsule 2 mg PO HS RF: 0 Stand-Alone Forms: [facility] Discharge Orders: Discharge Order (Routine); Ordered 11/28/18 Ordered By: Kimmy Aguayo Admission Data Admit Date/Time: 11/18/18 18:32 Attending Provider: Kimmy Aguayo Admit Provider: Annie Rendon Primary Care Provider: PCP,KATHY Service: Psychiatry Other Interventions: Discharge Summary Assessment (RN) Last Done: 11/28/18 09:39 PSY Interdisciplinary Discharge Planning Last Done: 11/28/18 09:39 Pending Studies at Discharge: No
[2018-11-28] MEDS: TRAZODONE HCL 50 MG TAB PO PRN (09:52)
== END 2018-11-28 12:05 | disposition home or self-care (01) | DRG 885 ==
LOC: ED 16:06 → 3S 18:32

== ENCOUNTER 2020-11-23 14:02 | Inpatient (IN) ==
--- NOTE | 2020-11-23 14:48 | History & Physical Report ---
Date of Service November 23, 2020 Assessment & Plan (1) Oligohydramnios antepartum: (2) LGA (large for gestational age) fetus affecting management of mother: (3) Breech presentation: (4) Group B streptococcal infection during : admit, iv, labs. fhts categ 1. will plan c/s. given status stable, will need to follow anesth planning for timing based on full stomach at 11am. pt aware. c/s consent reviewed and signed. copy of today's u/s being faxed. Admission and Anticipated Discharge Date Admission Date: November 23, 2020 History of Present Illness Chief Complaint: oligohydramnios Primary Care Provider: Juan Quintana MD 25yo at 38+wks egann-marie presents to L&D with cc as noted. She was seen in office where fluid volume being monitored due to borderline value. She was encouraged to drink fluid. Recheck today now <2cm DVP. Known breech. Planned c/s sunday. No ctx. No rom. No vb. +FM. Patient ate a full lunch at 11am today and had a slushie at 1pm. PNC c/b 1. breech 2. Oligo 3. ADHD, sees psychiatry in [place] 4. GBS pos PNL rh pos, RI, GBS pos Allergies Allergy/AdvReac Type Severity Reaction Status Date / Time Penicillins Allergy Unknown Unknown Verified 11/23/20 13:33 amoxicillin AdvReac Intermediate DYSPEPSIA Verified 11/23/20 13:33 diphenhydramine AdvReac Intermediate HYPERACTIVI Verified 11/23/20 13:33 TY egg AdvReac Intermediate NAUSEA, Verified 11/23/20 13:33 DIARRHEA azithromycin AdvReac Mild DIARRHEA Verified 11/23/20 13:33 Home Medications Medication Instructions Recorded Confirmed Type albuterol sulfate 90 mcg/actuation 2 puff INHALATION Q6H PRN #18 gm 05/27/20 11/23/20 Rx aerosol inhaler prenat.vits,kenyatta,[id number] 1 tab PO DAILY 10/20/20 11/23/20 History [ Vitamin] Patient History Medical History ADHD Anxiety Asthma Biliary colic Chronic back pain COVID-19 Depression Dyspepsia Dysphagia Encounter for pre-operative examination Encounter for pre-operative examination TONIO (generalized anxiety disorder) History of branchial cleft cyst History of scoliosis Pharyngitis PTSD (post-traumatic stress disorder) Stomach problems Viral URI Surgical History History of biopsy History of esophagogastroduodenoscopy (EGD) History of open reduction and internal fixation (ORIF) procedure History of tonsillectomy Hx laparoscopic cholecystectomy (01/15/20) Nausea and vomiting after administration of anesthetic agent S/P hardware removal S/P laparoscopy Family History Family/Other Cardiac disorder Depression Diabetes Hypertension Kidney stones Cancer Father Hypertension Social History Smoking Status: Former smoker Age Started Using Tobacco: 22; Age Quit Using Tobacco: 24; Cigarettes Per Day: 2-3 cigs a day; Second Hand Exposure: Yes; Hx Alcohol Use: No Hx Substance Use: No Preferred Language: Ukrainian Communication Ability: Effective Visual Impairment: No Limitations Hearing Ability: Normal Epic Manager Required: No Beliefs That Will Affect Care: None marital status: Single marital status details: FOB not involved. 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 Other Information That Helps Us Care for You: No Feels Safe at Home: Yes Safety Concerns: Feels Safe At This Time Diet Comment: Cecil Assistive Devices: Glasses Review of Systems as per Subjective / HPI Physical Exam Constitutional: WD/WN, vitals as above Respiratory: normal respiratory effort, lungs clear to auscultation Cardiovascular: Rate/Rhythm: regular rate and regular rhythm Gastrointestinal (Abdomen): soft gravid nt Musculoskeletal: no edema nontender calves Neurologic: grossly normal Psychiatric: A+Ox3, euthymic affect Genitourinary: OB Exam Monitor Tracing: + external FHT monitor used (145 mod v ariability reactive), + external uterine monitor used (irreg), + category I and + normal FHT variability Results & Data ([facility]) Vital Signs (Past 12 Hours) Vital Signs Pulse BP 11/23/20 14:13 112 H 129/78 Coding Level of Care Code None Diagnoses Oligohydramnios antepartum O41.00X0 LGA (large for gestational age) fetus affecting management of mother O36.60X0 Breech presentation O32.1XX0 Group B streptococcal infection during O98.819; B95.1
[2020-11-23] MEDS ORDERED: LACTATED RINGER'S 1,000 ML IV SCH ×2 (15:00→15:30)
[2020-11-23 15:08] LABS: Basophils # (auto) 0.02 K/uL (0-0.2); Basophils % (auto) 0.2 %; Eosinophils # (auto) 0.14 K/uL (0-0.5); Eosinophils % (auto) 1.2 %; Hematocrit (blood only) 34.9 % (37-47); Hemoglobin 11.3 g/dL (12.0-16.0); Immature Granulocytes # (auto) 0.16 K/uL (0.00-0.02); Immature Granulocytes % (auto) 1.3 %; Mean Corpuscular Hemoglobin 29.7 pg (25-34); Mean Corpuscular Hgb Conc 32.4 g/dL (32-36); Mean Corpuscular Volume 91.8 fL (80-100); Mean Platelet Volume 10.3 fL (7.4-10.4); Monocytes # (auto) 1.11 K/uL (0.11-0.59); Monocytes % (auto) 9.2 %; Neutrophils # (auto) 8.37 K/uL (1.4-6.5); Neutrophils % (auto) 69.1 %; Platelet Count 217 K/uL (130-400); RDW Coefficient of Variation 13.1 % (11.5-14.5); RDW Standard Deviation 43.6 fL (36.4-46.3)
[2020-11-23] MEDS ORDERED: ceFAZolin 2000MG 2,000 MG/15 ML SYR IV SCH (15:30)
[2020-11-23] MEDS ORDERED: CITRIC ACID/SODIUM CITRATE 15 ML UDC PO SCH (15:30)
--- NOTE | 2020-11-23 17:24 | Anesthesiology Consultation ---
Date of Service November 23, 2020 Assessment & Plan (1) Encounter for pre-operative examination: Chart Review Chart Review: Acceptable Risk for Surgery and Patient NOT seen in Pre Admission Testing Consults Requested none History Surgery Operation Date: 11/23/20 19:00 Proposed Procedures p Section in LD - Isabel Caceres MD, FACOG Height/Weight Height: 5 ft 3 in Weight: 101.151 kg Allergies Allergy/AdvReac Type Severity Reaction Status Date / Time Penicillins Allergy Unknown Unknown Verified 11/23/20 13:33 amoxicillin AdvReac Intermediate DYSPEPSIA Verified 11/23/20 13:33 diphenhydramine AdvReac Intermediate HYPERACTIVI Verified 11/23/20 13:33 TY egg AdvReac Intermediate NAUSEA, Verified 11/23/20 13:33 DIARRHEA azithromycin AdvReac Mild DIARRHEA Verified 11/23/20 13:33 Medications Home Medications Medication Instructions Recorded Confirmed Last Taken albuterol sulfate 90 mcg/actuation 2 puff INHALATION Q6H PRN #18 gm 05/27/20 11/23/20 11/18/20 aerosol inhaler prenat.vits,kenyatta,[id number] 1 tab PO DAILY 10/20/20 11/23/20 11/16/20 [ Vitamin] clonazepam [Klonopin] 0.5 mg PO DAILY 11/23/20 11/23/20 11/16/20 Active Medications Generic Name Dose Route Start Last Admin Trade Name Freq PRN Reason Stop Dose Admin Lactated Ringer's 1,000 mls @ 125 mls/hr 11/23/20 15:30 11/23/20 14:50 Lr IV 12/23/20 15:29 125 mls/hr .Q8H NICOLAS Administration NPO Date Last Intake of Fluids: 11/23/20 Time Last Intake of Fluids: 13:00 Date Last Intake of Solids: 11/23/20 Time Last Intake of Solids: 11:30 Past Medical History Medical History ADHD Anxiety Asthma stable Biliary colic Chronic back pain COVID-19 Depression Dyspepsia Dysphagia Encounter for pre-operative examination Encounter for pre-operative examination TONIO (generalized anxiety disorder) History of branchial cleft cyst History of scoliosis Pharyngitis PTSD (post-traumatic stress disorder) Stomach problems Viral URI Past Family History Family History Family/Other Cardiac disorder Depression Diabetes Hypertension Kidney stones Cancer Father Hypertension Past Surgical History Surgical History History of biopsy History of esophagogastroduodenoscopy (EGD) History of open reduction and internal fixation (ORIF) procedure right ankle History of tonsillectomy tonsillectomy: 01/18/18: Grade view 1, MAC#3, ETT 7.0 at [facility] Hx laparoscopic cholecystectomy (01/15/20) Laparoscopic Cholecystectomy Dr. Dong 01/15/2020 Nausea and vomiting after administration of anesthetic agent S/P hardware removal right ankle S/P laparoscopy exploratory Social History Smoking Status: Former smoker Smoking cigarettes per day: 2-3 cigs a day Hx Alcohol Use: No Hx Substance Use: No substance use type: does not use Physical Exam Vital Signs Last Vital Signs Temp 37.1 C 11/23/20 16:30 Pulse 112 H 11/23/20 14:14 Resp 20 11/23/20 14:14 BP 129/78 11/23/20 14:14 Testing Laboratory Results 11/23/20 14:50 Blood Type A Positive 11/23/20 14:50 Antibody Screen NEGATIVE 11/23/20 14:50
--- NOTE | 2020-11-23 19:35 | Labor Progress Brief Note ---
Date of Service November 23, 2020 Subjective Reason For Note: Routine Evaluation ready to go to c/s Assessment & Plan (1) Breech presentation: (2) Oligohydramnios antepartum: proceeding to c/s as planned. still breech. iv abx infusing. pt denies questions or concerns. Admission and Anticipated Discharge Date Admission Date: November 23, 2020 Physical Exam Constitutional: WD/WN, vitals as above Genitourinary: OB Exam Abdomen: + breech (by US bedside, bri) OB Exam Monitor Tracing: + external FHT monitor used (145 mod variability, +spont a ccels) Results & Data ([facility]) Vital Signs (Past 12 Hours) Vital Signs Temp Pulse Resp BP 11/23/20 19:17 108 H 114/69 11/23/20 17:52 99.7 F H 99 H 20 121/74 11/23/20 16:30 98.8 F 11/23/20 14:14 99.3 F 112 H 20 129/78 11/23/20 14:13 112 H 129/78 Coding Level of Care Code None Diagnoses Breech presentation O32.1XX0 Oligohydramnios antepartum O41.00X0
[2020-11-23] MEDS ORDERED: ONDANSETRON INJ 2 MG/ML 2 ML VIAL ONE (19:45)
[2020-11-23] MEDS ORDERED: fentaNYL citrate 100 MCG/2 ML VIAL ONE (19:45)
[2020-11-23] MEDS ORDERED: MoRPHine SULFATE PF 1 MG/ML 10 ML AMP/VIAL ONE (19:45)
[2020-11-23] MEDS ORDERED: SODIUM CHLORIDE 0.9% INJ 10 ML VIAL ONE (19:48)
[2020-11-23] MEDS ORDERED: OXYTOCIN 10 UNITS/ML VIAL ONE (19:48)
[2020-11-23] MEDS ORDERED: MIDAZOLAM HCL 1 MG/ML 2ML VIAL ONE (20:42)
[2020-11-23] MEDS ORDERED: KETOROLAC 30 MG/ML VIAL ONE (20:44)
[2020-11-23] MEDS ORDERED: PHENYLEPHRINE 100MCG/ML 5ML SYR ONE (20:53)
[2020-11-23] MEDS ORDERED: ePHEDrine sulfate 50 MG/ML SYR ONE (20:53)
[2020-11-23] MEDS ORDERED: diphenhydrAMINE 50 MG/ML VIAL IV PRN (20:59)
[2020-11-23] MEDS ORDERED: ONDANSETRON INJ 2 MG/ML 2 ML VIAL IV PRN (20:59)
[2020-11-23] MEDS ORDERED: NALOXONE HCL 1 MG in SODIUM CHLORIDE 0.9% 1000ML 1,000 ML IV PRN (20:59)
[2020-11-23] MEDS ORDERED: LACTATED RINGER'S 500 ML IV PRN (20:59)
[2020-11-23] MEDS ORDERED: HYDROmorphone INJ 0.5 MG/0.5 ML SYR IV PRN (20:59)
[2020-11-23] MEDS ORDERED: ePHEDrine sulfate 50 MG/ML AMP IV PRN (20:59)
[2020-11-23] MEDS ORDERED: NALOXONE HCL 0.4 MG/1 ML VIAL/CARP IV PRN (20:59)
[2020-11-23] MEDS ORDERED: MoRPHine SULFATE PF 1 MG/ML 10 ML AMP/VIAL INT SPINAL ONE (20:59)
[2020-11-23] MEDS ORDERED: NALOXONE HCL 0.08 MG in SYRINGE 1.8 ML IV PRN (20:59)
[2020-11-23] MEDS ORDERED: ACETAMINOPHEN 1000 MG/100 ML IV IV PRN (20:59)
[2020-11-23] MEDS ORDERED: SODIUM CHLORIDE 0.9% 1000ML 1,000 ML IV SCH (21:00)
[2020-11-23] MEDS ORDERED: NO NARCOTICS OR SEDATIVES SCH (21:00)
[2020-11-23] MEDS ORDERED: DC INTRASPINAL MORPHINE SCH (21:00)
--- NOTE | 2020-11-23 21:05 | Post Operative Brief Note ---
PG Immediate Post Op with CF Date of Surgery November 23, 2020 Pre & Post Diagnosis Operation Date: 11/23/20 19:00 Pre-Op Diagnosis: 1. Oligohydramnios 2. 38+wks ega 3. Breech presentation. Post-Op Diagnosis: Same I identified the patient and participated in the time-out.: Yes Procedure Operation Date: 11/23/20 19:00 Actual Procedures p Primary Low Transverse Section - Isabel Caceres MD, FACOG Surgeon Isabel Caceres MD, FACOG Archeologist Classical RN Estimated Blood Loss 750 Findings Consistent with Post-Op Diagnosis (viable female apgars 9,9, bri breech. no rmal uterus tubes and ovaries bilaterally) Fluids 1000 Specimens Specimen Description: A. Placenta- hold B. Cord Blood Drains Leigh Catheter Anesthesia Type Spinal Complications none Disposition Accompanied Patient To Recovery: No Disposition: L&D
[2020-11-23] MEDS ORDERED: ALBUTEROL HFA 8 GM INHALER INH PRN (21:10)
--- NOTE | 2020-11-23 21:28 | Anesthesiology Progress Note ---
Date of Service November 23, 2020 Anesthesia Post Procedure Vital Signs Vital Signs: Temp Pulse Resp BP Pulse Ox 11/23/20 21:27 99 H 104/56 L 11/23/20 21:25 96 H 99 11/23/20 21:23 96 H 93 11/23/20 21:20 91 H 98 11/23/20 21:16 94 H 97/55 L 11/23/20 21:15 97 H 98 11/23/20 19:17 108 H 114/69 11/23/20 17:52 37.6 C H 99 H 20 121/74 11/23/20 16:30 37.1 C 11/23/20 14:14 37.4 C 112 H 20 129/78 11/23/20 14:13 112 H 129/78 Transfer of Care Handoff Completed per policy Notes Mental Status: alert / awake / arousable and participated in evaluation Nausea / Vomiting: adequately controlled Pain: adequately controlled Airway Patency, RR, SpO2: stable & adequate BP & HR: stable & adequate Hydration State: stable & adequate Neuraxial Anesthesia: was administered and sensory block is resolving Anesthetic Complications: no major complications apparent and Pt Satisfied with anesthetic care
--- NOTE | 2020-11-23 21:29 | Operative Report ---
PG Post Operative Report Pre & Post Diagnosis Operation Date: 11/23/20 19:00 Pre-Op Diagnosis: 1. Oligohydramnios 2. 38+wks ega 3. Breech presentation. Post-Op Diagnosis: Same I identified the patient and participated in the time-out.: Yes Procedure Operation Date: 11/23/20 19:00 Actual Procedures p Primary Low Transverse Section - Isabel Caceres MD, FACOG Surgeon Isabel Caceres MD, FACOG Bus Cleaner RN Estimated Blood Loss 750 Findings Consistent with Post-Op Diagnosis (viable female apgars 9,9, bri breech. normal uterus tubes and ovaries bilaterally) Fluids 1000 Specimens cord blood Drains pizano Anesthesia Type Spinal Complications none Disposition Accompanied Patient To Recovery: No Disposition: L&D Indications 25yo at 38+wks ega sent from office with diagnosis of oligohydramnios by u/s today and known breech presentation for delivery. She had eaten a full meal at about 11am and due to stable nature, appropriate time given per anesthesia to proceed. Consent reviewed and signed. Description of Procedure The patient was taken to the operating room and identified. After adequate anesthesia was obtained, she was placed in the supine position with a leftward tilt on the operating table and prepped and draped in the usual sterile fashion. A pizano catheter had already been placed. The knife was used to create a Pfannensteil skin incision that was carried down to the underlying layer of fascia. The fascia was nicked in the midline and this opening was extended laterally using Courtney scissors. Alex clamps were placed on the superior and inferior aspects of the fascial incision tenting it upward and the underlying rectus muscles were dissected off the overlying fascia both sharply and bluntly using Courtney scissors. The rectus muscles were bluntly in the midline. The peritoneal cavity was bluntly entered into. This opening was stretched. The bladder blade was placed. The vesicouterine peritoneum was elevated and opened up into and the bladder flap was created digitally and bladder blade was replaced. The knife was used to create a hysterotomy and this opening was stretched. The operators hand was placed through the hysterotomy and the bladder blade was removed. The buttocks was elevated and with fundal pressure delivered to the level of the scapulae. The arms were swept across the anterior midline and the head was flexed and delivered. The cord was clamped and cut and the infant's mouth and nares were bulb suction. The infant was handed off to the awaiting pediatricians. Cord blood was obtained. The placenta was manually expressed. The uterus was exteriorized and cleared of all clots and debris. Dilute IV Pitocin was begun. The uterine tone was improving. The hysterotomy was closed in a running interlocking fashion using 0 Vicryl followed by a second imbricating layer of 0 Vicryl. The hysterotomy was bleeding at the midline and left of hysterotomy and therefore 2 figure of eight sutures of 2-0 vicryl were placed. The hysterotomy was then hemostatic. The uterus was returned to the abdomen. The gutters were cleared of all clots and debris. The hysterotomy was reinspected and noted to be hemostatic. The fascia was then closed in running fashion using 0 Vicryl. The subcutaneous fat was copiously irrigated and reapproximated using 2-0 chromic. The skin was closed in a subcuticular fashion using 4-0 Vicryl. At this point the procedure was terminated. The patient was transferred to the recovery room in stable condition. All sponge, lap and needle counts are correct x2. I attest to the content of the Intraoperative Record and any orders documented therein. Any exceptions are noted below. OB Procedure charges OB Charges [id number] C/S
[2020-11-23] MEDS ORDERED: HYDROCORTISONE ACETATE 25 MG SUPP PR PRN (21:32)
[2020-11-23] MEDS ORDERED: SUPERCREAM 0.870% 15 GM JAR EXT PRN (21:32)
[2020-11-23] MEDS ORDERED: BENZOCAINE 20% AER SPR 82.5 GM CAN EXT PRN (21:32)
[2020-11-23] MEDS ORDERED: MAGNESIUM HYDROXIDE SUSP 30 ML UDC PO PRN (21:32)
[2020-11-23] MEDS ORDERED: SENNA 8.6 MG TAB PO PRN (21:32)
[2020-11-23] MEDS ORDERED: DIPHTHERIA/TETANUS/PERTUSSIS 0.5 ML SYR/VIAL IM ONE (21:32)
[2020-11-23] MEDS: OXYTOCIN 20 UNITS in LACTATED RINGER'S 1,000 ML IV SCH (22:22)
[2020-11-24] MEDS: KETOROLAC 30 MG/ML VIAL IV PRN ×2 (05:24→11:23)
[2020-11-24] MEDS: OXYTOCIN 20 UNITS in LACTATED RINGER'S 1,000 ML IV SCH (05:34)
--- NOTE | 2020-11-24 06:02 | Obstetrical Progress Note ---
Date of Service <Juan A Winkler MD - Last Filed: 11/24/20 06:41> November 24, 2020 Assessment & Plan <Juan A Winkler MD - Last Filed: 11/24/20 06:41> (1) Breech presentation: - PNL: Rh pos, RI, GBS positive, COVID neg - Feels well today. Eating well, voiding well, ambulating well - Pain well controlled with analgesics - Routine post-operative care -- OOB, ambulation, diet progression as tolerated - Plan to remove Leigh when able to ambulate - After discharge will have 6 week follow-up with Dr. Caceres (2) Oligohydramnios antepartum: Subjective <Juan A Winkler MD - Last Filed: 11/24/20 06:41> Renee is a 25 y/o female who is POD #1 following delivery at 38+ weeks for breech presentation, also p/w oligohydramnios. She reports feeling well overall this morning. Moderatabdominal cramping and 7/10 pain well managed on analgesics. Has Leigh in. Tolerating fluids overnight without difficulty. Patient has yet to ambulate. Not yet passing gas and had bowel movement. Has persistent lochia with some improvement this morning. Currently without difficulty. Review of Systems Denies fever or chills. Denies shortness of breath or cough. Denies chest pain. Denies breast pain. Denies dysuria. Denies leg pain or leg swelling. Denies headache or changes in vision. Physical Exam <Juan A Winkler MD - Last Filed: 11/24/20 06:41> General: Alert, oriented. No acute distress. Cardiac: Regular rate and rhythm. No murmurs. Respiratory: Clear to auscultation bilaterally a/p, no wheezes/rales/rhonchi. No increased work of breathing. Symmetrical chest rise. No respiratory distress. Abdomen: Soft, nontender, nondistended. Bowel sounds present. Uterus: Uterine fundus firm, palpable ~1 cm below umbilicus. Surgical scar clean and healing well. Lower Extremities: No lower extremity edema or swelling. No deep calf pain. Yasemin's negative bilaterally. Results & Data ([facility]) <Juan A Winkler MD - Last Filed: 11/24/20 06:41> Vital Signs (Past 12 Hours) Vital Signs Temp Pulse Pulse Resp BP BP Pulse Ox 11/24/20 05:18 37 C 85 18 96/55 L 97 11/24/20 03:52 18 94 11/24/20 02:54 18 96 11/24/20 01:30 18 97 11/24/20 00:30 36.9 C 105 H 18 111/66 97 11/23/20 23:40 110 H 95 11/23/20 23:35 113 H 95 11/23/20 23:30 108 H 95 11/23/20 23:27 115 H 94/53 L 11/23/20 23:25 106 H 96 11/23/20 23:20 36.8 C 100 H 18 99 11/23/20 23:17 110 H 97/54 L 11/23/20 23:15 111 H 97 11/23/20 23:10 104 H 98 11/23/20 23:07 103 H 105/55 L 11/23/20 23:05 112 H 97 11/23/20 23:00 103 H 98 11/23/20 22:57 90 111/59 L 11/23/20 22:55 108 H 98 11/23/20 22:50 108 H 99 11/23/20 22:47 111 H 16 108/59 L 11/23/20 22:45 108 H 99 11/23/20 22:40 109 H 98 11/23/20 22:37 105 H 105/57 L 11/23/20 22:35 104 H 97 11/23/20 22:30 106 H 97 11/23/20 22:27 106 H 107/59 L 11/23/20 22:25 104 H 97 11/23/20 22:20 106 H 99 11/23/20 22:17 36.6 C 109 H 18 104/60 11/23/20 22:15 105 H 99 11/23/20 22:10 107 H 98 11/23/20 22:07 111 H 18 98/53 L 11/23/20 22:05 105 H 98 11/23/20 22:00 103 H 97 11/23/20 21:57 102 H 18 101/55 L 11/23/20 21:55 105 H 98 11/23/20 21:50 103 H 98 11/23/20 21:47 100 H 20 104/56 L 11/23/20 21:45 101 H 96 11/23/20 21:40 105 H 96 11/23/20 21:37 96 H 18 105/58 L 11/23/20 21:35 100 H 96 11/23/20 21:30 104 H 96 11/23/20 21:27 99 H 18 104/56 L 11/23/20 21:25 96 H 99 11/23/20 21:23 96 H 93 11/23/20 21:20 91 H 98 11/23/20 21:16 36.9 C 94 H 18 97/55 L 11/23/20 21:15 97 H 98 11/23/20 19:17 108 H 114/69 <Isabel Caceres MD, FACOG - Last Filed: 11/24/20 07:20> Co-Signing Physician Notes Resident Physician Supervision Note: I was present with Dr. Winkler during the history and exam. I discussed the case with the resident and agree with the findings and plan as documented in the note. Any exceptions or clarifications are listed here: pt doing well. . pain controlled. no flatus yet. no n/v. milton clears. no cp/sob. ff 2 down nt, dressing c/d/i. ext nt calves. normal postop thus far. hgb pending. routine care. rh pos, ri. Documented By: Isabel Caceres MD, FACOG Resident Activity Tracking <Juan A Winkler MD - Last Filed: 11/24/20 06:41> Resident Involvement: Resident Care Provided Care Provided: OB Delivery
[2020-11-24 07:34] LABS: Basophils # (auto) 0.02 K/uL (0-0.2); Basophils % (auto) 0.1 %; Eosinophils # (auto) 0.07 K/uL (0-0.5); Eosinophils % (auto) 0.5 %; Hematocrit (blood only) 27.9 % (37-47); Hemoglobin 9.1 g/dL (12.0-16.0); Immature Granulocytes # (auto) 0.06 K/uL (0.00-0.02); Immature Granulocytes % (auto) 0.4 %; Lymphocytes # (auto) 2.62 K/uL (1.2-3.4); Lymphocytes % (auto) 18.4 %; Mean Corpuscular Hemoglobin 29.9 pg (25-34); Mean Corpuscular Hgb Conc 32.6 g/dL (32-36); Mean Corpuscular Volume 91.8 fL (80-100); Mean Platelet Volume 10.2 fL (7.4-10.4); Monocytes # (auto) 1.18 K/uL (0.11-0.59); Monocytes % (auto) 8.3 %; Neutrophils % (auto) 72.3 %; Platelet Count 174 K/uL (130-400); RDW Coefficient of Variation 13.2 % (11.5-14.5); RDW Standard Deviation 44.1 fL (36.4-46.3); Red Blood Count 3.04 M/uL (4.2-5.4); White Blood Count 14.25 K/uL (4.8-10.8)
[2020-11-24] MEDS: SIMETHICONE 80 MG CHEW PO SCH ×4 (07:34→20:42)
[2020-11-24] MEDS: PRENATAL VITAMIN 1 TAB PO SCH (07:34)
[2020-11-24] MEDS: FERROUS SULFATE 325 MG TAB PO SCH (07:34)
[2020-11-24] MEDS: DOCUSATE SODIUM 100 MG CAP PO SCH ×2 (07:34→20:43)
[2020-11-24] MEDS ORDERED: LACTATED RINGER'S 1,000 ML IV SCH (14:00)
[2020-11-24] MEDS ORDERED: diphenhydrAMINE Capsule 25 MG CAP PO PRN (14:59)
[2020-11-24] MEDS ORDERED: ONDANSETRON INJ 2 MG/ML 2 ML VIAL IV PRN (14:59)
[2020-11-24] MEDS ORDERED: diphenhydrAMINE 50 MG/ML VIAL IV PRN (14:59)
[2020-11-24] MEDS ORDERED: ZOLPIDEM TARTRATE 5 MG TAB PO PRN (14:59)
[2020-11-24] MEDS ORDERED: KETOROLAC 30 MG/ML VIAL IV PRN (14:59)
[2020-11-24] MEDS ORDERED: PROMETHAZINE HCL 25 MG in SODIUM CHLORIDE 0.9% 50 ML IV PRN (14:59)
[2020-11-24] MEDS: IBUPROFEN 600 MG TAB PO PRN ×2 (16:44→20:42)
[2020-11-24] MEDS: oxyCODONE/ACETAMINOPHEN 5mg/325mg TAB PO PRN ×2 (16:45→20:42)
[2020-11-25] MEDS: IBUPROFEN 600 MG TAB PO PRN ×4 (03:08→19:50)
[2020-11-25] MEDS: oxyCODONE/ACETAMINOPHEN 5mg/325mg TAB PO PRN ×5 (03:08→21:05)
[2020-11-25 06:09] LABS: Hematocrit (blood only) 27.6 % (37-47)
[2020-11-25] MEDS: SIMETHICONE 80 MG CHEW PO SCH ×4 (08:10→19:50)
[2020-11-25] MEDS: clonazePAM 0.5 MG TAB PO SCH (08:11)
[2020-11-25] MEDS: FERROUS SULFATE 325 MG TAB PO SCH (08:11)
[2020-11-25] MEDS: PRENATAL VITAMIN 1 TAB PO SCH (08:11)
[2020-11-25] MEDS: DOCUSATE SODIUM 100 MG CAP PO SCH ×2 (08:11→19:50)
--- NOTE | 2020-11-25 08:11 | Obstetrical Progress Note ---
Date of Service November 25, 2020 Assessment & Plan (1) Encounter for care and examination after delivery: 25yo day 2 s/p LTCS. Doing well. Routine care. Subjective Ambulation: ambulating normally Voiding: no voiding problems Passing Gas:: Yes Diet Tolerance:: regular diet Lochia:: Moderate Physical Exam Constitutional WD/WN, vitals as above Respiratory normal respiratory effort; no respiratory distress and no labored breathing Gastrointestinal (Abdomen) Inspection/Auscultation: abdomen normal to inspection; abdomen not distended Percussion/Palpation: abdomen soft; abdomen nontender, no guarding and abdomen not rigid Incision: clean, dry, intact Genitourinary OB Exam Abdomen: + fundal height Fundus: + firm and + relation to umbilicus (Below); not tender and not boggy Results & Data ([facility]) Vital Signs (Past 12 Hours) Vital Signs Temp Pulse Resp BP Pulse Ox 11/25/20 07:22 37 C 80 18 105/69 97 11/24/20 22:55 37.3 C 88 16 97/58 L 96 11/24/20 20:25 36.9 C 92 H 18 98/64 L
[2020-11-26] MEDS: oxyCODONE/ACETAMINOPHEN 5mg/325mg TAB PO PRN ×3 (01:18→11:33)
[2020-11-26] MEDS: IBUPROFEN 600 MG TAB PO PRN ×3 (01:19→11:33)
--- NOTE | 2020-11-26 05:56 | Obstetrical Progress Note ---
Date of Service November 26, 2020 Assessment & Plan (1) Encounter for care and examination after delivery: POD#3 doing well. DC home. Instructions reviewed. Followup in office 6w. Subjective Ambulation: ambulating normally Voiding: no voiding problems Diet Tolerance:: regular diet Lochia:: Moderate Feeding Type:: breast feeding POD#3 doing well. Review of Systems All systems reviewed & are unremarkable except as noted in HPI & below Physical Exam Incision CDI Constitutional WD/WN, vitals as above no acute distress Respiratory normal respiratory effort Cardiovascular Rate/Rhythm: regular rate and regular rhythm Gastrointestinal (Abdomen) Inspection/Auscultation: abdomen normal to inspection; abdomen not distended Percussion/Palpation: abdomen soft Genitourinary OB Exam Abdomen: + fundal height Fundus: + firm; not tender Results & Data ([facility]) Vital Signs (Past 12 Hours) Vital Signs Temp Pulse Pulse Resp BP BP Pulse Ox 11/26/20 00:20 37.1 C 93 H 18 105/68 11/25/20 19:50 37.1 C 89 18 107/67 98
[2020-11-26] MEDS: DOCUSATE SODIUM 100 MG CAP PO SCH (08:49)
[2020-11-26] MEDS: PRENATAL VITAMIN 1 TAB PO SCH (08:49)
[2020-11-26] MEDS: clonazePAM 0.5 MG TAB PO SCH (08:49)
[2020-11-26] MEDS: SIMETHICONE 80 MG CHEW PO SCH ×2 (08:49→11:32)
[2020-11-26] MEDS: FERROUS SULFATE 325 MG TAB PO SCH (08:49)
--- NOTE | 2020-11-29 21:57 | Discharge Summary ---
Date of Service Date of admission: 11/23/20 Date of discharge: 11/26/20 Admission HPI Per Admitting Provider 25yo at 38+wks maurilio presents to L&D with cc of oligohydramnios, breech presentation. She was seen in office where fluid volume being monitored due to borderline value. She was encouraged to drink fluid. Recheck today now <2cm DVP. Known breech. Planned c/s sunday. No ctx. No rom. No vb. +FM. Patient ate a full lunch at 11am today and had a slushie at 1pm. Will not be able to do c/s until about 8hr from food unless emergency arises. PNC c/b 1. breech 2. Oligo 3. ADHD, sees psychiatry in [place] 4. GBS pos PNL rh pos, RI, GBS pos Discharge Data Consultations 11/23/20 14:29 Consult Anesthesiology Stat Procedures Performed Operation Date: 11/23/20 19:00 Actual Procedures p Primary Low Transverse Section in LD for breech for LFC at 2031(Bilateral) - Isabel Caceres MD, [facility] Hospital Course (1) Oligohydramnios antepartum: (2) Breech presentation: The patient underwent the above stated procedure without incident and her postoperative course and recovery was uncomplicated. On her postoperative day #3 she was tolerating a regular diet, voiding spontaneously, ambulating without problem and was using oral meds for adequate pain control. Her postoperative hemoglobin was 9.0 . She was given written and verbal discharge instructions and told to followup in office at 6wks. She was given appropriate pain medicine prescriptions. Coding Level of Care Code None Diagnoses Oligohydramnios antepartum O41.00X0 Breech presentation O32.1XX0
== END 2020-11-26 12:55 | disposition home or self-care (01) | DRG 788 ==
LOC: 4S1 14:02 → 4S2 23:50

== ENCOUNTER 2023-01-26 10:36 | Observation (INO) ==
[2023-01-26] MEDS ORDERED: KETOROLAC TROMETHAMINE 15 MG/ML VIAL IV STA (11:07)
[2023-01-26] MEDS ORDERED: ONDANSETRON INJ 2 MG/ML 2 ML VIAL IV STA (11:07)
[2023-01-26] MEDS ORDERED: cefTRIAXone SODIUM 2,000 MG/70 ML BAG IV STA (11:07)
[2023-01-26] MEDS ORDERED: SODIUM CHLORIDE 0.9% 1000ML 1,000 ML IV STA (11:07)
[2023-01-26] MEDS ORDERED: MoRPHine SULFATE 4 MG/ML 1 ML CARP\\VIAL IV STA ×2 (11:07→12:39)
--- NOTE | 2023-01-26 11:24 | Emergency Department Note ---
Impression & Plan Bilateral flank pain, Vomiting, Pyelonephritis, Failure of outpatient treatment ED Provider Note NAME: MARLO SPRINGER AGE: 27 SEX: F : 1995 ARRIVES VIA: Walk-In INFORMANT: [Patient] ED PROVIDER(S): [Theo Reardon MD] CHIEF COMPLAINT: Urinary symptoms HISTORY OF PRESENT ILLNESS: The patient is a 27-year-old female who states that she has had a week of symptoms. She has had pain in both flanks, more so the right. She has had some burning across the abdomen and with urination. She has had some difficulty making her urine. She has had nausea and vomiting. No fever. The patient was in our ER 2 days ago and no true etiology was found for her symptoms. She followed up with her family doctor's office and there was concern for UTI so yesterday, they placed her on Macrobid. After 1 dose, she developed a rash and was told by her doctor's office to stop the medication. The patient was directed by the doctors office to the ER for further evaluation. There has been no cough or congestion or shortness of breath. The patient states that the pain has become more severe over the week, again more so on the right in the flank and right upper quadrant. Of note, the patient did have a renal ultrasound as an outpatient this week as ordered by her doctors office, this was unrevealing. PMHx/PSHx: See Below SOCIAL HISTORY: See Below. PHYSICAL EXAM: GENERAL: Patient is in no acute distress. HEENT: No acute trauma, normocephalic atraumatic, mucous membranes moist, no nasal congestion. NECK: No stridor, no adenopathy, no meningismus, trachea is midline. LUNGS: Clear to auscultation bilaterally, no wheeze, no rhonchi, breath sounds equal. HEART: Without murmurs gallops or rubs, regular rate and rhythm. ABDOMEN: Soft, moderately tender in the upper quadrants, mostly on the right. EXTREMITIES: No cyanosis or edema, full range of motion of all the joints without pain or difficulty, no signs for acute trauma. NEUROLOGIC: Oriented x 3, no acute motor or sensory deficits, no focal weakness. SKIN: No rash, no jaundice, no diaphoresis. Back: Right more so than left flank discomfort to percussion. DIFFERENTIAL DIAGNOSIS: Pyelonephritis, renal colic, hydronephrosis, UTI, renal failure, electrolyte imbalance, dehydration, among others. EMERGENCY DEPARTMENT COURSE/PROCEDURES: Prior/Outside records reviewed: Recent ED note and recent outpatient family practice note. MEDICAL DECISION MAKING: There is no leukocytosis. No concerning anemia. There is a normal platelet count. Potassium slightly low but not in need of emergent correction. No renal failure. No concerning liver enzyme elevation. No evidence for pancreatitis. testing returned negative. Urinalysis shows ketones and a few white cells although, the urinalysis appeared mostly consistent with contamination. Abdominal and pelvis CT did not show any evidence for hydronephrosis or acute process within the abdomen or pelvis. A potential infiltrate/atelectasis to the right lower lung was noted. Chest film did not show pneumonia or CHF per my review. No free air. Patient presents with some urinary complaints, bilateral flank pain. The pain is worse on the right. This is a week of symptoms for her. She tried Macrobid without relief in fact, she developed a rash from the Macrobid. I suspect the patient does have pyelonephritis. This would certainly fit with her presentation. She was given IV saline for hydration, IV Phenergan for nausea, IV Zofran for nausea. She received IV morphine for pain, a second dose of IV morphine was given for pain. She was given IV Toradol. She received IV ceftriaxone for the potential pyelonephritis. Given the patient's persistent symptoms despite treatment as an outpatient, given the vomiting, given the worsening of her situation, I do think a hospital stay would be warranted. I did speak with the patient and case management, the on-call hospitalist was consulted. DISPOSITION: Patient's presentation and findings warrant a hospital stay. Past Med/Surg History Medical History ADHD Anxiety Asthma stable Chronic back pain Depression Dysphagia TONIO (generalized anxiety disorder) History of branchial cleft cyst History of COVID-19 diagnosed 05/2020---difficulty breathing, congestion, loss of appetite--no issues summer 2021, test at [place], not hosp; congestion, fatigue>resolved. History of scoliosis PTSD (post-traumatic stress disorder) Stomach problems Surgical History History of biopsy left thigh--benign History of esophagogastroduodenoscopy (EGD) History of open reduction and internal fixation (ORIF) procedure right ankle History of tonsillectomy tonsillectomy: 01/18/18: Grade view 1, MAC#3, ETT 7.0 at [facility] Hx laparoscopic cholecystectomy (01/15/20) Laparoscopic Cholecystectomy Dr. Dong 01/15/2020 Hx of section Nausea and vomiting after administration of anesthetic agent S/P hardware removal right ankle S/P laparoscopy exploratory Family History Family/Other Diabetes Depression Cardiac disorder Kidney stones Cancer Hypertension Father Hypertension Aunt Breast cancer Grandmother (Maternal) Ovarian cancer Other No family history of adverse response to anesthesia Denies family history of Prostate cancer Colorectal cancer Social History Smoking Status: Never smoker Age Started Using Tobacco: 22; Age Quit Using Tobacco: 24; Cigarettes Per Day: 2-3 cigs a day; Second Hand Exposure: No; Do You Dip or Chew Tobacco: No; Hx Alcohol Use: No Hx Substance Use: No Preferred Language: Portuguese Communication Ability: Effective Visual Impairment: No Limitations Hearing Ability: Normal Electric Stove Mechanic Required: No Beliefs That Will Affect Care: None marital status: Single marital status details: FOB not involved. 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 Feels Safe at Home: Yes Safety Concerns: Feels Safe At This Time Diet Comment: Rhea Assistive Devices: None Allergies Allergies Allergy/AdvReac Type Severity Reaction Status Date / Time nitrofurantoin Allergy Mild Rash Verified 01/26/23 09:57 [From Macrobid] Penicillins Allergy Unknown Unknown Verified 01/25/23 11:07 amoxicillin AdvReac Intermediate DYSPEPSIA Verified 01/25/23 11:07 diphenhydramine AdvReac Intermediate HYPERACTIVI Verified 01/25/23 11:07 TY egg AdvReac Intermediate NAUSEA, Verified 01/25/23 11:07 DIARRHEA azithromycin AdvReac Mild DIARRHEA Verified 01/25/23 11:07 Home Meds Home Medications Medication Instructions Recorded Confirmed clonazepam 1 mg tablet 1 mg PO DAILY PRN Anxiety 12/07/20 01/26/23 dextroamphetamine-amphetamine 20 20 mg PO QAM 08/02/22 01/26/23 mg tablet dextroamphetamine-amphetamine 30 30 mg PO QPM 08/02/22 01/26/23 mg tablet (Adderall) trazodone 50 mg tablet 50 mg PO HS 08/02/22 01/26/23 Previous Rx's Medication Instructions Recorded drospirenone 3 mg-ethinyl 1 tab PO QAM #84 tabs 08/02/22 estradiol 0.03 mg tablet (Macey (28)) albuterol sulfate 90 mcg/actuation 2 puff inhalation Q6H PRN 08/23/22 aerosol inhaler Shortness Of Breath Or Wheezing #18 grams budesonide-formoterol HFA 80 1 inh inhalation BID #10.2 grams 09/20/22 mcg-4.5 mcg/actuation aerosol inhaler (Symbicort) dicyclomine 20 mg tablet 20 mg PO TID #20 tabs 12/06/22 ondansetron 4 mg disintegrating 4 mg PO Q6H PRN nausea and 01/25/23 tablet vomiting #30 tabs tramadol 50 mg tablet 50 mg PO Q8H PRN pain #21 tabs 01/25/23 Results & Data (ED) Vital Signs Vital Signs - 24 hr 01/26/23 10:47 01/26/23 11:26 01/26/23 12:14 Temperature 36.6 C Temperature Source Temporal Artery Scan Pulse Rate 92 H 69 Pulse Rate [Right Finger] 77 Pulse Rhythm [Right Finger] Regular Pulse Strength [Right Finger] Normal Respiratory Rate 20 18 Respiratory Effort / Characteristics Non-Labored Non-Labored Spontaneous Respiratory Depth Normal Normal Respiratory Pattern Regular Blood Pressure 105/66 Blood Pressure Mean 79 Pulse Oximetry 97 79 L Oxygen Delivery Method Room Air Room Air Sepsis Recent Fever Within 48 Hours No Sepsis New/Unexplained Change in Mental Status No Sepsis Action Taken by Nursing No Action Required Home Medications Current Medication List: was personally reviewed by me Laboratory Data Attestation: I reviewed the patient's lab results. 01/26/23 11:09 01/26/23 11:09 Lab Results 01/26/23 01/26/23 01/26/23 Range/Units 11:09 11:09 11:09 WBC 9.09 (4.8-10.8) K/ul RBC 4.00 L (4.20-5.40) M/uL Hgb 11.8 L (12.0-16.0) g/dl Hct 35.5 L (37.0-47.0) % MCV 88.8 (80.0-100.0) fL MCH 29.5 (25.0-34.0) pg MCHC 33.2 (32.0-36.0) g/dL RDW Std Deviation 41.5 (36.4-46.3) fL RDW Coeff of Gerardo 12.7 (11.5-14.5) % Plt Count 244 (130-400) K/uL MPV 8.8 L (9.4-12.4) fL Immature Gran % (Auto) 0.3 % Neut % (Auto) 58.2 % Lymph % (Auto) 30.1 % Carroll % (Auto) 6.8 % Eos % (Auto) 4.0 % Baso % (Auto) 0.6 % Neut # (Auto) 5.29 (1.40-6.50) K/uL Lymph # (Auto) 2.74 (1.2-3.4) K/uL Carroll # (Auto) 0.62 H (0.11-0.59) K/uL Eos # (Auto) 0.36 (0-0.50) K/uL Baso # (Auto) 0.05 (0-0.2) K/uL Immature Gran # (Auto) 0.03 (0.01-0.20) K/uL Sodium 137 (136-145) mmol/L Potassium 3.4 L (3.5-5.1) mmol/L Chloride 106 (98-107) mmol/L Carbon Dioxide 22 (21-32) mmol/L Anion Gap 9 (3-11) BUN 10 (6-23) mg/dl Creatinine 0.88 (0.6-1.2) mg/dl Est Cr Clr Drug Dosing Not Reportable Est GFR ( Amer) 104.4 ml/min Est GFR (Non-Af Amer) 90.0 ml/min BUN/Creatinine Ratio 11.4 (10-20) Glucose 98 (70-99(Fasting)) mg/dl Calcium 9.0 (8.6-10.3) mg/dl Total Bilirubin 0.4 (0.2-1.0) mg/dl AST 13 (13-39) U/L ALT 9 (7-52) U/L Alkaline Phosphatase 41 (34-104) U/L Total Protein 6.5 (6.0-8.3) gm/dl Albumin 3.8 (3.4-5.0) gm/dl Globulin 2.7 (2.5-4.0) gm/dl Albumin/Globulin Ratio 1.4 (0.9-2) Lipase 19 (11-82) U/L HCG, Qual Negative (Negative) Urine Color Urine Appearance (Clear) Urine pH (4.5-7.5) Ur Specific [place] (1.000-1.030) Urine Protein (Negative) Urine Glucose (UA) (Negative) Urine Ketones (Negative) Urine Blood (Negative) Urine Nitrite (Negative) Urine Bilirubin (Negative) Urine Urobilinogen (Negative) Ur Leukocyte Esterase (Negative) Urine WBC (Auto) (0-5) /hpf Urine RBC (Auto) (0-4) /hpf U Hyaline Cast (Auto) (0-5) /lpf U Epithel Cells (Auto) (0-5) /lpf Urine Bacteria (Auto) (Negative) 01/26/23 Range/Units 11:10 WBC (4.8-10.8) K/ul RBC (4.20-5.40) M/uL Hgb (12.0-16.0) g/dl Hct (37.0-47.0) % MCV (80.0-100.0) fL MCH (25.0-34.0) pg MCHC (32.0-36.0) g/dL RDW Std Deviation (36.4-46.3) fL RDW Coeff of Gerardo (11.5-14.5) % Plt Count (130-400) K/uL MPV (9.4-12.4) fL Immature Gran % (Auto) % Neut % (Auto) % Lymph % (Auto) % Carroll % (Auto) % Eos % (Auto) % Baso % (Auto) % Neut # (Auto) (1.40-6.50) K/uL Lymph # (Auto) (1.2-3.4) K/uL Carroll # (Auto) (0.11-0.59) K/uL Eos # (Auto) (0-0.50) K/uL Baso # (Auto) (0-0.2) K/uL Immature Gran # (Auto) (0.01-0.20) K/uL Sodium (136-145) mmol/L Potassium (3.5-5.1) mmol/L Chloride (98-107) mmol/L Carbon Dioxide (21-32) mmol/L Anion Gap (3-11) BUN (6-23) mg/dl Creatinine (0.6-1.2) mg/dl Est Cr Clr Drug Dosing Est GFR ( Amer) ml/min Est GFR (Non-Af Amer) ml/min BUN/Creatinine Ratio (10-20) Glucose (70-99(Fasting)) mg/dl Calcium (8.6-10.3) mg/dl Total Bilirubin (0.2-1.0) mg/dl AST (13-39) U/L ALT (7-52) U/L Alkaline Phosphatase (34-104) U/L Total Protein (6.0-8.3) gm/dl Albumin (3.4-5.0) gm/dl Globulin (2.5-4.0) gm/dl Albumin/Globulin Ratio (0.9-2) Lipase (11-82) U/L HCG, Qual (Negative) Urine Color Dark Yellow Urine Appearance Cloudy A (Clear) Urine pH 6.0 (4.5-7.5) Ur Specific [place] 1.022 (1.000-1.030) Urine Protein Negative (Negative) Urine Glucose (UA) Negative (Negative) Urine Ketones Trace H (Negative) Urine Blood Trace H (Negative) Urine Nitrite Negative (Negative) Urine Bilirubin Negative (Negative) Urine Urobilinogen Negative (Negative) Ur Leukocyte Esterase Trace H (Negative) Urine WBC (Auto) 5-10 H (0-5) /hpf Urine RBC (Auto) 0-4 (0-4) /hpf U Hyaline Cast (Auto) 1-5 (0-5) /lpf U Epithel Cells (Auto) >30 H (0-5) /lpf Urine Bacteria (Auto) Negative (Negative) Administered Medications Acetaminophen (Acetaminophen 325 Mg Tab) 650 mg PO Q4H PRN PRN Reason: pain/fever Stop: 02/25/23 16:14 Last Admin: 01/26/23 16:50 Dose: 650 mg Documented By: [facility] Fluticasone/Vilanterol (Fluticasone/Vilanterol 100/25mcg 14 Puffs/Inhaler) 1 puffs INH DAILY [facility] Stop: 02/25/23 16:29 Last Admin: 01/26/23 16:49 Dose: 1 puffs Documented By: [facility] Ketorolac Tromethamine (Ketorolac Tromethamine 15 Mg/Ml Vial) 10 mg IV Q6H PRN PRN Reason: Pain, 2nd line Stop: 01/31/23 16:14 Last Admin: 01/26/23 18:08 Dose: 10 mg Documented By: [facility] Miscellaneous (Macey 28--Order Awaiting Action) 1 each N/A QS [facility] Stop: 02/25/23 16:29 Last Admin: 01/26/23 16:42 Dose: Not Given Documented By: [facility] Ondansetron HCl (Ondansetron Inj 2 Mg/Ml 2 Ml Vial) 4 mg IV Q6H PRN PRN Reason: Nausea Stop: 02/25/23 16:14 Last Admin: 01/26/23 18:08 Dose: 4 mg Documented By: [facility] Discontinued Medications Sodium Chloride (Nss 1000ml) 1,000 mls @ 999 mls/hr IV .Q1H1M STA Stop: 01/26/23 12:07 Last Infusion: 01/26/23 13:35 Dose: 0 mls/hr Documented By: Admin: 01/26/23 11:15 Dose: 999 mls/hr Documented By: BRENNAN Ceftriaxone Sodium (Rocephin) 2,000 mg in 70 mls @ 140 mls/hr IV NOW STA Stop: 01/26/23 11:36 Last Infusion: 01/26/23 13:35 Dose: 0 mls/hr Documented By: Admin: 01/26/23 13:05 Dose: 140 mls/hr Documented By: BRENNAN Promethazine HCl (Phenergan) 12.5 mg in 50.5 mls @ 202 mls/hr IV NOW STA Stop: 01/26/23 12:53 Last Infusion: 01/26/23 13:35 Dose: 0 mls/hr Documented By: Admin: 01/26/23 13:03 Dose: 202 mls/hr Documented By: BRENNAN Ketorolac Tromethamine (Ketorolac Tromethamine 15 Mg/Ml Vial) 15 mg IV NOW STA Stop: 01/26/23 11:08 Last Admin: 01/26/23 11:22 Dose: 15 mg Documented By: BRENNAN Morphine Sulfate (Morphine Sulfate 4 Mg/Ml 1 Ml Carp\Vial) 4 mg IV NOW STA Stop: 01/26/23 11:08 Last Admin: 01/26/23 11:23 Dose: 4 mg Documented By: BRENNAN Morphine Sulfate (Morphine Sulfate 4 Mg/Ml 1 Ml Carp\Vial) 4 mg IV NOW STA Stop: 01/26/23 12:40 Last Admin: 01/26/23 13:03 Dose: 4 mg Documented By: BRENNAN Ondansetron HCl (Ondansetron Inj 2 Mg/Ml 2 Ml Vial) 4 mg IV NOW STA Stop: 01/26/23 11:08 Last Admin: 01/26/23 11:19 Dose: 4 mg Documented By: BRENNAN Imaging Data Radiologist's Impression: Abdomen/Pelvis CT 01/26/23 11:07 CT OF THE ABDOMEN AND PELVIS WITHOUT CONTRAST CLINICAL HISTORY: Flank pain, right worse. COMPARISON STUDY: CT of the abdomen and pelvis January 22, 2023. Renal ultrasound January 25, 2023. TECHNIQUE: Axial images of the abdomen and pelvis were obtained without IV contrast. Images were reviewed in the axial, sagittal, and coronal planes. Automated exposure control was utilized for the study. A dose lowering technique was utilized adhering to the principles of ALARA. FINDINGS: There has been interval development of a small cluster of alveolar and tree-in-bud opacities within the right lower lobe since CT of January 22, 2023. No renal, ureteral or bladder calculi are present. There is no hydronephrosis or hydroureter. There is no perinephric stranding. There is no biliary ductal dilatation status post cholecystectomy. Evaluation of the remainder of the abdomen and pelvis is suboptimal on this unenhanced exam. Liver, spleen, adrenal glands and pancreas are unremarkable. There is no peripancreatic infiltration. No evidence for acute appendicitis. There is no evidence for a bowel obstruction. A moderate amount stool within the colon and rectum is present. There is no lymphadenopathy. IMPRESSION: 1. Interval development of mild airspace opacities within the right lower lobe suggestive of an infectious process. 2. No urinary calculi or hydronephrosis. 3. No bowel obstruction. Moderate amount of stool. No evidence for acute peterson endicitis. ACT 112: Negative or not required by law. Electronically signed by: Dat Tello M.D. 01/26/2023 11:41 AM Chest X-Ray 01/26/23 12:06 XR chest 1V portable CLINICAL HISTORY: ruq, flank pain COMPARISON STUDY: Chest CT November 19, 2020. Chest radiograph January 22, 2023. FINDINGS: Lung volumes are normal. No airspace opacities are identified. Mild right lower lobe airspace opacities on abdominal CT performed earlier today are not evident by radiography. There is no pneumothorax or pleural effusion. Cardiac size is normal. Mediastinal contours are normal. There is no evidence for pulmonary edema. IMPRESSION: No acute cardiopulmonary findings. The mild right lower lobe airspace opacities on abdominal CT performed earlier today are not evident by radiography. ACT 112: Negative or not required by law. Electronically signed by: Dat Tello M.D. 01/26/2023 12:18 PM Discharge Plan Visit Data Chief Complaint: Urinary Symptoms Stated Complaint: REF BY DOC; URINARY SYMPTOMS, BACK PAIN ED Provider: Theo Reardon Discharge Problem: Bilateral flank pain, Vomiting, Pyelonephritis, Failure of outpatient treatment Patient Disposition: Admitted As Inpatient Condition: Fair Discharge Instructions Interventions: ED Discharge Assessment Last Done: 01/26/23 15:53
[2023-01-26 11:42] LABS: Basophils # (auto) 0.05 K/uL (0-0.2); Basophils % (auto) 0.6 %; Eosinophils # (auto) 0.36 K/uL (0-0.50); Hematocrit (blood only) 35.5 % (37.0-47.0); Hemoglobin 11.8 g/dl (12.0-16.0); Immature Granulocytes # (auto) 0.03 K/uL (0.01-0.20); Immature Granulocytes % (auto) 0.3 %; Lymphocytes # (auto) 2.74 K/uL (1.2-3.4); Lymphocytes % (auto) 30.1 %; Mean Corpuscular Hemoglobin 29.5 pg (25.0-34.0); Mean Corpuscular Hgb Conc 33.2 g/dL (32.0-36.0); Mean Corpuscular Volume 88.8 fL (80.0-100.0); Mean Platelet Volume 8.8 fL (9.4-12.4); Monocytes # (auto) 0.62 K/uL (0.11-0.59); Monocytes % (auto) 6.8 %; Neutrophils # (auto) 5.29 K/uL (1.40-6.50); Neutrophils % (auto) 58.2 %; Platelet Count 244 K/uL (130-400); RDW Coefficient of Variation 12.7 % (11.5-14.5); RDW Standard Deviation 41.5 fL (36.4-46.3); White Blood Count 9.09 K/ul (4.8-10.8)
--- NOTE | 2023-01-26 11:43 | CT Scan Report ---
CT OF THE ABDOMEN AND PELVIS WITHOUT CONTRAST CLINICAL HISTORY: Flank pain, right worse. COMPARISON STUDY: CT of the abdomen and pelvis January 22, 2023. Renal ultrasound January 25, 2023. TECHNIQUE: Axial images of the abdomen and pelvis were obtained without IV contrast. Images were revi ewed in the axial, sagittal, and coronal planes. Automated exposure control was utilized for the wilmer dy. A dose lowering technique was utilized adhering to the principles of ALARA. FINDINGS: There has been interval development of a small cluster of alveolar and tree-in-bud opacitie s within the right lower lobe since CT of January 22, 2023. No renal, ureteral or bladder calculi are pr esent. There is no hydronephrosis or hydroureter. There is no perinephric stranding. There is no bili michelle ductal dilatation status post cholecystectomy. Evaluation of the remainder of the abdomen and pel vis is suboptimal on this unenhanced exam. Liver, spleen, adrenal glands and pancreas are unremarkabl e. There is no peripancreatic infiltration. No evidence for acute appendicitis. There is no evidence for a bowel obstruction. A moderate amount stool within the colon and rectum is present. There is no lymphadenopathy. IMPRESSION: 1. Interval development of mild airspace opacities within the right lower lobe suggestive of an infec tious process. 2. No urinary calculi or hydronephrosis. 3. No bowel obstruction. Moderate amount of stool. No evidence for acute appendicitis. ACT 112: Negative or not required by law. Electronically signed by: Dat Tello M.D. 01/26/2023 11:41 AM
[2023-01-26 11:52] LABS: Alanine Aminotransferase 9 U/L (7-52); Albumin Globulin Ratio 1.4 (0.9-2); Albumin Level 3.8 gm/dl (3.4-5.0); Alkaline Phosphatase 41 U/L (34-104); Anion Gap 9 (3-11); Aspartate Aminotransferase 13 U/L (13-39); BUN Creatinine Ratio 11.4 (10-20); Bilirubin,Total 0.4 mg/dl (0.2-1.0); Blood Urea Nitrogen 10 mg/dl (6-23); Carbon Dioxide 22 mmol/L (21-32); Chloride 106 mmol/L (98-107); Est GFR (African American) 104.4 ml/min; Globulin 2.7 gm/dl (2.5-4.0); Glucose 98 mg/dl (70-99(Fasting)); Lipase 19 U/L (11-82); Potassium 3.4 mmol/L (3.5-5.1); Sodium 137 mmol/L (136-145); Total Protein 6.5 gm/dl (6.0-8.3)
[2023-01-26 11:54] LABS: Pregnancy Test, Serum Negative (Negative)
[2023-01-26 12:05] LABS: Appearance Urine Cloudy (Clear); Bacteria Urine Automated Negative (Negative); Bilirubin Urine Negative (Negative); Blood Urine Trace (Negative); Color Urine Dark Yellow; Epithelial Cell Urine Auto >30 /lpf (0-5); Glucose Urine UA Negative (Negative); Ketones Urine Trace (Negative); Leukocyte Esterase Urine Trace (Negative); Nitrite Urine Negative (Negative); Protein Urine Negative (Negative); RBC Urine Automated 0-4 /hpf (0-4); Specific Gravity Urine 1.022 (1.000-1.030); Urobilinogen Urine Negative (Negative)
--- NOTE | 2023-01-26 12:20 | XRay Report ---
XR chest 1V portable CLINICAL HISTORY: ruq, flank pain COMPARISON STUDY: Chest CT November 19, 2020. Chest radiograph January 22, 2023. FINDINGS: Lung volumes are normal. No airspace opacities are identified. Mild right lower lobe airspa ce opacities on abdominal CT performed earlier today are not evident by radiography. There is no pneu mothorax or pleural effusion. Cardiac size is normal. Mediastinal contours are normal. There is no ev idence for pulmonary edema. IMPRESSION: No acute cardiopulmonary findings. The mild right lower lobe airspace opacities on abdom inal CT performed earlier today are not evident by radiography. ACT 112: Negative or not required by law. Electronically signed by: Dat Tello M.D. 01/26/2023 12:18 PM
[2023-01-26] MEDS ORDERED: PROMETHAZINE 12.5 MG/50.5 ML BAG IV STA (12:39)
--- NOTE | 2023-01-26 14:30 | History & Physical Report ---
Date of Service January 26, 2023 Assessment & Plan (1) Flank pain: Plan: Flank pain,? Complicated UTI Patient with frequent small voids/urgent, dysuria slightly improved after Macrobid, but progressive right greater than left flank pain. Outpatient UCx pending. Repeat urine pending Additional Macrobid deferred No evidence of PRAVIN or hydro on imaging Patient is aware no acute abdominal pathology is noted on CT, no leukocytosis, and afebrile here however she has had worsening pain following clinical signs of UTI with nausea/vomiting and does not feel able to return home Rocephin continued, may transition to 5 days of cefdinir Follow UCx Zofran, Tylenol, Toradol for pain control. Defer narcotics. Denies vaginal discharge/sx Pulmonary airspace opacities Noted on CT, no respiratory symptoms, no fever No evidence of pneumonia on x-ray, Pro-Jonathan is pending, community-acquired pneumonia would be covered by Rocephin given above Patient was documented as having an SPO2 of 79%. This is an accurate, was transposed and meant to be charted as 97%. She has never been hypoxic during admission and does not have respiratory symptoms. IBSD, chronic diarrhea, chronic dysphagia improved with outpatient dilations DDx does include IBS Last EGD 07/2022: No esophageal abnormality to explain dysphagia, did have dilation at that time. Erythematous mucosa which was biopsied. Normal duodenal bulb. No longer takes dicyclomine. Denies diarrhea/cramping and feels her current symptoms are very different than her prior IBS ADHD Hold home Adderall Anxiety PDMP reviewed. Is prescribed lorazepam 1 mg 60 tablet fills (twice daily dosing). We will continue this. Asthma No acute exacerbation. Symbicort converted to Breo while inpatient DVT prophylaxis: SCDs, ambulate Diet: Regular Disposition: Medical/surgical CODE STATUS: Full (2) UTI (urinary tract infection): (3) ADHD: (4) Asthma: History of Present Illness Primary Care Provider: DENISSE Allen is a 27-year-old female with a past medical history of PTSD, IBS, gallbladder polyps who presents with continued flank pain, nausea, vomiting. She has been seen twice as an outpatient with continued pain, reportedly was suspected to have a UTI and was prescribed Macrobid. She has had flank pain which is now spread to both flanks and her back and has not improved on Macrobid. UA is contaminated appearing with some leukocyte esterase, complicated by Macrobid use. She had an outpatient ultrasound which did not show evidence of stones or hydro due to severe pain, nausea, vomiting patient underwent a noncontrast CT of the abdomen and pelvis this did not show any evidence of recurrent kidney stones, limited exam but did not show obvious evidence of hydro. Some concern of mild airspace opacities in right lower lobe, patient has not had respiratory symptoms or hypoxia. Due to ongoing severe pain and inadequate improvement on outpatient treatment she is recommended for IV antibiotic treatment and overnight observation. R flank starting last week. Saw PCP and was placedon macrobid. Had a urine sample but pt is not sure if a culture is available. +dysuria, +polyuria, +now small volume voids with urgency. Flank pain spread fro R to the L since last sunday but R is much worse today. +nausea, +vomiting. No hematemesis/melena No fevers. +chills. +anterior abdominal tenderness No chest pain or chest pressure No vaginal discharge/itching Takes Adderall, Ativan twice daily for anxiety, control. No longer on dicyclomine. Was prescribed tramadol, only took 1 dose of this and did not feel it helped much Medical History: Reviewed Medications: Reviewed. Adderall, ativan daily prn anxiety, no longer takes dicyclomine. Only took 1 tramadol yesterday, prescribed recently for he rflank pain Surgical History: Reviewed Family history: Reviewed Allergies: Reviewed. PCN, azithromycin (diarrhea) Social History: No tobacco, no etoh, no recreational drug use Code Status: Full Code Allergies Allergy/AdvReac Type Severity Reaction Status Date / Time nitrofurantoin Allergy Mild Rash Verified 01/26/23 09:57 [From Macrobid] Penicillins Allergy Unknown Unknown Verified 01/25/23 11:07 amoxicillin AdvReac Intermediate DYSPEPSIA Verified 01/25/23 11:07 diphenhydramine AdvReac Intermediate HYPERACTIVI Verified 01/25/23 11:07 TY egg AdvReac Intermediate NAUSEA, Verified 01/25/23 11:07 DIARRHEA azithromycin AdvReac Mild DIARRHEA Verified 01/25/23 11:07 Home Medications Medication Instructions Recorded Confirmed Type clonazepam 1 mg tablet 1 mg PO DAILY PRN Anxiety 12/07/20 01/26/23 History dextroamphetamine-amphetamine 20 20 mg PO QAM 08/02/22 01/26/23 History mg tablet dextroamphetamine-amphetamine 30 30 mg PO QPM 08/02/22 01/26/23 History mg tablet (Adderall) drospirenone 3 mg-ethinyl 1 tab PO QAM #84 tabs 08/02/22 01/26/23 Rx estradiol 0.03 mg tablet (Macey (28)) trazodone 50 mg tablet 50 mg PO HS 08/02/22 01/26/23 History albuterol sulfate 90 mcg/actuation 2 puff inhalation Q6H PRN 08/23/22 01/26/23 Rx aerosol inhaler Shortness Of Breath Or Wheezing #18 grams budesonide-formoterol HFA 80 1 inh inhalation BID #10.2 grams 09/20/22 01/26/23 Rx mcg-4.5 mcg/actuation aerosol inhaler (Symbicort) dicyclomine 20 mg tablet 20 mg PO TID #20 tabs 12/06/22 01/26/23 Rx ondansetron 4 mg disintegrating 4 mg PO Q6H PRN nausea and 01/25/23 01/26/23 Rx tablet vomiting #30 tabs tramadol 50 mg tablet 50 mg PO Q8H PRN pain #21 tabs 01/25/23 01/26/23 Rx Past Med/Surg History Medical History ADHD Anxiety Asthma stable Chronic back pain Depression Dysphagia TONIO (generalized anxiety disorder) History of branchial cleft cyst History of COVID-19 diagnosed 05/2020---difficulty breathing, congestion, loss of appetite--no issues summer 2021, test at [place], not hosp; congestion, fatigue>resolved. History of scoliosis PTSD (post-traumatic stress disorder) Stomach problems Surgical History History of biopsy left thigh--benign History of esophagogastroduodenoscopy (EGD) History of open reduction and internal fixation (ORIF) procedure right ankle History of tonsillectomy tonsillectomy: 01/18/18: Grade view 1, MAC#3, ETT 7.0 at [facility] Hx laparoscopic cholecystectomy (01/15/20) Laparoscopic Cholecystectomy Dr. Dong 01/15/2020 Hx of section Nausea and vomiting after administration of anesthetic agent S/P hardware removal right ankle S/P laparoscopy exploratory Family History Family/Other Diabetes Depression Cardiac disorder Kidney stones Cancer Hypertension Father Hypertension Aunt Breast cancer Grandmother (Maternal) Ovarian cancer Other No family history of adverse response to anesthesia Denies family history of Prostate cancer Colorectal cancer Social History Smoking Status: Never smoker Age Started Using Tobacco: 22; Age Quit Using Tobacco: 24; Cigarettes Per Day: 2-3 cigs a day; Second Hand Exposure: No; Do You Dip or Chew Tobacco: No; Hx Alcohol Use: Yes Alcohol type: wine Hx Substance Use: No Preferred Language: Citizen Of [place] Communication Ability: Effective Visual Impairment: No Limitations Hearing Ability: Normal City Manager Required: No Beliefs That Will Affect Care: None marital status: Single marital status details: FOB not involved. 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 NAD. Cooperative. HEENT: Atraumatic, normocephalic. Pulm: CTAB A&P. -wheezes, -rales, -rhonchi. Symmetrical chest rise. No increased work of breathing. No respiratory distress. Cardiac: RRR, -mrg. Radial pulses intact and symmetrical. Abdominal: Mildly tender in right and left lower quadrant without radiation. Abdomen is soft. No guarding. Tender to percussion R>L CVA, patient does also have some Skin/spine: Tenderness to palpation at her on right scapula. No crepitus contusion or increased muscle tone. No spinal or paraspinal tenderness Extremities: Moves all extremities equally, no edema, sensation and strength grossly Results & Data Results & Data Vital Signs (Past 12 Hours) Vital Signs Temp Pulse Pulse Resp BP Pulse Ox O2 Del Method 01/26/23 12:14 69 01/26/23 11:26 77 18 79 L Room Air 08/04/23 10:47 36.6 C 92 H 20 105/66 97 Room Air PG Care Time/CCT Total # of Minutes Spent Total Time Spent with Patient: Total time spent is greater than 50% in coordination of care (as documented) at patient's floor/unit and/or counseling patient: Coding Level of Care Code 43898 INT INP/OBS CARE 2/55MIN Diagnoses Flank pain R10.9 UTI (urinary tract infection) N30.00 Hematuria presence: without hematuria Urinary tract infection type: acute cystitis ADHD F90.9 Asthma J45.909 (2) UTI (urinary tract infection) Hematuria presence: without hematuria Urinary tract infection type: acute cystitis Qualified Code(s): N30.00 - Acute cystitis without hematuria
[2023-01-26] MEDS ORDERED: ALBUTEROL HFA 8 GM INHALER INH PRN (16:15)
[2023-01-26] MEDS: FLUTICASONE/VILANTEROL 100/25MCG 14 PUFFS/INHALER INH SCH (16:49)
[2023-01-26] MEDS: ACETAMINOPHEN 325 MG TAB PO PRN ×2 (16:50→21:00)
[2023-01-26] MEDS: KETOROLAC TROMETHAMINE 15 MG/ML VIAL IV PRN (18:08)
[2023-01-26] MEDS: ONDANSETRON INJ 2 MG/ML 2 ML VIAL IV PRN (18:08)
[2023-01-26] MEDS ORDERED: traZODone HCL 50 MG TAB PO SCH (21:00)
[2023-01-26] MEDS ORDERED: LACTATED RINGER'S 1,000 ML IV SCH (22:15)
[2023-01-27] MEDS: KETOROLAC TROMETHAMINE 15 MG/ML VIAL IV PRN (01:58)
[2023-01-27] MEDS: ONDANSETRON INJ 2 MG/ML 2 ML VIAL IV PRN (01:59)
[2023-01-27] MEDS ORDERED: LACTATED RINGER'S 1,000 ML IV ONE (02:08)
[2023-01-27 06:03] LABS: Hematocrit (blood only) 34.2 % (37.0-47.0); Mean Corpuscular Hemoglobin 29.4 pg (25.0-34.0); Mean Corpuscular Hgb Conc 32.2 g/dL (32.0-36.0); Mean Corpuscular Volume 91.4 fL (80.0-100.0); Platelet Count 228 K/uL (130-400); RDW Coefficient of Variation 12.8 % (11.5-14.5); RDW Standard Deviation 42.2 fL (36.4-46.3); Red Blood Count 3.74 M/uL (4.20-5.40); White Blood Count 7.95 K/ul (4.8-10.8)
[2023-01-27 06:21] LABS: BUN Creatinine Ratio 11.9 (10-20); Calcium 8.4 mg/dl (8.6-10.3); Creatinine Clr Calc Pharmacy 83.2 ml/min; Est GFR (African American) 110.4 ml/min; Est GFR (Non-African American) 95.3 ml/min; Potassium 4.3 mmol/L (3.5-5.1)
[2023-01-27 06:48] LABS: Basophils # (auto) 0.05 K/uL (0-0.2); Basophils % (auto) 0.6 %; Eosinophils # (auto) 0.35 K/uL (0-0.50); Eosinophils % (auto) 4.4 %; Immature Granulocytes # (auto) 0.01 K/uL (0.01-0.20); Immature Granulocytes % (auto) 0.1 %; Lymphocytes # (auto) 4.09 K/uL (1.2-3.4); Lymphocytes % (auto) 51.4 %; Monocytes # (auto) 0.65 K/uL (0.11-0.59); Monocytes % (auto) 8.2 %; Neutrophils % (auto) 35.3 %
[2023-01-27] MEDS: FLUTICASONE/VILANTEROL 100/25MCG 14 PUFFS/INHALER INH SCH (09:08)
[2023-01-27] MEDS: ACETAMINOPHEN 325 MG TAB PO PRN (09:08)
--- NOTE | 2023-01-27 14:36 | Discharge Summary ---
Date of Service January 27, 2023 Admission HPI Per Admitting Provider Renee is a 27-year-old female with a past medical history of PTSD, IBS, gallbladder polyps who presents with continued flank pain, nausea, vomiting. She has been seen twice as an outpatient with continued pain, reportedly was suspected to have a UTI and was prescribed Macrobid. She has had flank pain which is now spread to both flanks and her back and has not improved on Macrobid. UA is contaminated appearing with some leukocyte esterase, complicated by Macrobid use. She had an outpatient ultrasound which did not show evidence of stones or hydro due to severe pain, nausea, vomiting patient underwent a noncontrast CT of the abdomen and pelvis this did not show any evidence of recurrent kidney stones, limited exam but did not show obvious evidence of hydro. Some concern of mild airspace opacities in right lower lobe, patient has not had respiratory symptoms or hypoxia. Due to ongoing severe pain and inadequate improvement on outpatient treatment she is recommended for IV antibiotic treatment and overnight observation. R flank starting last week. Saw PCP and was placedon macrobid. Had a urine sample but pt is not sure if a culture is available. +dysuria, +polyuria, +now small volume voids with urgency. Flank pain spread fro R to the L since last sunday but R is much worse today. +nausea, +vomiting. No hematemesis/melena No fevers. +chills. +anterior abdominal tenderness No chest pain or chest pressure No vaginal discharge/itching Takes Adderall, Ativan twice daily for anxiety, control. No longer on dicyclomine. Was prescribed tramadol, only took 1 dose of this and did not feel it helped much Medical History: Reviewed Medications: Reviewed. Adderall, ativan daily prn anxiety, no longer takes dicyclomine. Only took 1 tramadol yesterday, prescribed recently for he rflank pain Surgical History: Reviewed Family history: Reviewed Allergies: Reviewed. PCN, azithromycin (diarrhea) Social History: No tobacco, no etoh, no recreational drug use Code Status: Full Code Admission Exam Per Admitting Provider General: A&Ox3. NAD. Cooperative. HEENT: Atraumatic, normocephalic. Pulm: CTAB A&P. -wheezes, -rales, -rhonchi. Symmetrical chest rise. No increased work of breathing. No respiratory distress. Cardiac: RRR, -mrg. Radial pulses intact and symmetrical. Abdominal: Mildly tender in right and left lower quadrant without radiation. Abdomen is soft. No guarding. Tender to percussion R>L CVA, patient does also have some Skin/spine: Tenderness to palpation at her on right scapula. No crepitus co ntusion or increased muscle tone. No spinal or paraspinal tenderness Extremities: Moves all extremities equally, no edema, sensation and strength grossly Principal Diagnosis Flank pain, UTI, IBS Discharge Exam General: Well-appearing, NAD Cardiovascular: RRR, no M/R/G Pulmonary: CTAB, no W/R/R Abdomen: Soft, ND, mild global TTP, no guarding, mild CVA TTP B/L Integumentary: No suspicious rash or lesion on exposed skin Neurologic: AAOx3, no focal deficits Psychiatric: Appropriate mood/affect Discharge Data Allergies Allergy/AdvReac Type Severity Reaction Status Date / Time nitrofurantoin Allergy Mild Rash Verified 01/26/23 09:57 [From Macrobid] Penicillins Allergy Unknown Unknown Verified 01/25/23 11:07 amoxicillin AdvReac Intermediate DYSPEPSIA Verified 01/25/23 11:07 diphenhydramine AdvReac Intermediate HYPERACTIVI Verified 01/25/23 11:07 TY egg AdvReac Intermediate NAUSEA, Verified 01/25/23 11:07 DIARRHEA azithromycin AdvReac Mild DIARRHEA Verified 01/25/23 11:07 Consultations 01/26/23 12:48 ED Decision to Admit Stat Ordered Studies Renal US 01/25/23: FINDINGS: The right kidney measures 11 x 4.2 x 3.8 cm and the left kidney measures 11.1 x 5.3 x 4.1 cm. No definite renal calculi are identified by sonography. There is no hydronephrosis. Both ureteral jets were identified. Renal echogenicity, size and cortical thickness are normal. IMPRESSION: Unremarkable renal ultrasound. No hydronephrosis. No definite calculi by sonography. Abdomen/Pelvis CT 01/26/23: FINDINGS: There has been interval development of a small cluster of alveolar and tree-in-bud opacities within the right lower lobe since CT of January 22, 2023. No renal, ureteral or bladder calculi are present. There is no hydronephrosis or hydroureter. There is no perinephric stranding. There is no biliary ductal dilatation status post cholecystectomy. Evaluation of the remainder of the abd omen and pelvis is suboptimal on this unenhanced exam. Liver, spleen, adrenal glands and pancreas are unremarkable. There is no peripancreatic infiltration. No evidence for acute appendicitis. There is no evidence for a bowel obstruction. A moderate amount stool within the colon and rectum is present. There is no lymphadenopathy. IMPRESSION: 1. Interval development of mild airspace opacities within the right lower lobe suggestive of an infectious process. 2. No urinary calculi or hydronephrosis. 3. No bowel obstruction. Moderate amount of stool. No evidence for acute appendicitis. CXR 01/26/23: FINDINGS: Lung volumes are normal. No airspace opacities are identified. Mild right lower lobe airspace opacities on abdominal CT performed earlier today are not evident by radiography. There is no pneumothorax or pleural effusion. Cardiac size is normal. Mediastinal contours are normal. There is no evidence for pulmonary edema. IMPRESSION: No acute cardiopulmonary findings. The mild right lower lobe airspace opacities on abdominal CT performed earlier today are not evident by radiography. Hospital Course (1) Bilateral flank pain: (2) Failure of outpatient treatment: (3) Bilateral upper abdominal pain: (4) Anemia: (5) UTI (urinary tract infection): Plan Flank pain: [place] to most likely be secondary to UTI Patient with frequent small voids/urgent, dysuria slightly improved after Macrobid, but progressive right greater than left flank pain.Denies vaginal discharge/sx No evidence of PRAVIN on labs or evidence of kidney stones or hydro on imaging - UCx with Gardnerella-like bacilli Macrobid discontinued and Rocephin used while inpatient, discharged on cefdinir Discharged on short course of oxycodone 5mg BID PRN - reviewed PDMP and counseled on appropriate use. Discontinued Tramadol that was previously prescribed as not helpful per patient. Recommend use of OTC analgesics first Pulmonary airspace opacities Noted on CT, no respiratory symptoms, no fever No evidence of pneumonia on x-ray, on Rocephin and cefdinir as above Patient was documented as having an SPO2 of 79%. This is an accurate, was transposed and meant to be charted as 97%. She has never been hypoxic during admission and does not have respiratory symptoms. IBSD, chronic diarrhea, chronic dysphagia improved with outpatient dilations DDx does include IBS flare Last EGD 07/2022: No esophageal abnormality to explain dysphagia, did have dilation at that time. Erythematous mucosa which was biopsied. Normal duodenal bulb. No longer takes dicyclomine - recommend resuming on discharge - Make f/u appointment with GI Anemia: - Noted on labs while inpatient, has had prior episodes of anemia dating back to 2020 - Recommend rechecking CBC at primary care follow up and continue workup and management with primary care provider Total Time Total Time Spent Total Time Spent (In Minutes): 35 minutes Total Time Includes: Examination of the Patient, Discharge Planning and Medicat ion Reconciliation Discharge Plan Discharge Items Patient Disposition: Home - Self-Care Reason For Visit: FLANK PAIN, UTI Discharge Diagnosis: UTI, IBS Condition on Discharge: Fair Activity: Resume your previous activity Non-emergency contact: Primary Care Provider Call non-emergency contact if: your symptoms worsen Follow-up/Referrals: Nathaniel Leslie CRNP [Primary Care Provider] - Diet: Regular Addtl Attending Provider Instructions: You were admitted with flank pain felt to be related to urinary tract infection and IBS flare. Take the antibiotics as prescribed and use the pain medication sparingly. Try the dicyclomine at nighttime. 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 Pending Studies at Discharge: No Stand-Alone Forms: My [facility] [email or web address], Smoking Cessation Medications and DC Order Prescriptions: New lorazepam [Ativan] 1 mg tablet 1 mg PO BID Qty: 1 0RF oxycodone 5 mg tablet 5 mg PO BID PRN (Reason: pain) Qty: 14 0RF cefdinir 300 mg capsule 300 mg PO BID 8 Days Qty: 16 0RF Rx Instructions: Start taking on 01/28/23 oxycodone 5 mg tablet 5 mg PO BID PRN (Reason: severe pain (scale score 7-10)) Qty: 10 0RF Continued albuterol sulfate 90 mcg/actuation HFA aerosol inhaler 2 puff INHALATION Q6H PRN (Reason: Shortness Of Breath Or Wheezing) Qty: 18 0RF budesonide-formoterol [Symbicort] 80-4.5 mcg/actuation HFA aerosol inhaler 1 inh inhalation BID Qty: 10.2 2RF ondansetron 4 mg tablet,disintegrating 4 mg PO Q6H PRN (Reason: nausea and vomiting) Qty: 30 0RF trazodone 50 mg tablet 50 mg PO HS dextroamphetamine-amphetamine [Adderall] 30 mg tablet 30 mg PO QPM drospirenone-ethinyl estradiol [Macey (28)] 3-0.03 mg tablet 1 tab PO QAM Qty: 84 3RF Rx Instructions: to take continuously , no placebo pills. dicyclomine 20 mg tablet 20 mg PO TID Qty: 20 0RF dextroamphetamine-amphetamine 20 mg tablet 20 mg PO QAM Discontinued tramadol 50 mg tablet 50 mg PO Q8H PRN (Reason: pain) Qty: 21 0RF clonazepam 1 mg tablet 1 mg PO DAILY PRN (Reason: Anxiety) Discharge Orders: Discharge Order (Routine); Ordered 01/27/23 Ordered By: Altagracia Morris Admission Data Admit Date/Time: 01/26/23 14:43 Attending Provider: Altagracia Morris Admit Provider: Lazarus Bradford Primary Care Provider: Nathaniel Leslie Other Providers: Lazarus Bradford Other Interventions: Discharge Summary Assessment (RN) Last Done: 01/27/23 16:03 Coding Level of Care Code 37508 INP/OBS DISCH >30 MIN Diagnoses Bilateral flank pain R10.9 Failure of outpatient treatment Z78.9 Bilateral upper abdominal pain R10.11; R10.12 Anemia D64.9 UTI (urinary tract infection) N39.0
[2023-01-27] MEDS ORDERED: cefTRIAXone SODIUM 2,000 MG in DEXTROSE 5% 50 ML IV SCH (15:00)
== END 2023-01-27 16:20 | disposition home or self-care (01) ==
LOC: ED 10:36 → 3E 10:36 → SUATTDRO 14:43 → 3E 15:53